=== PATIENT | male | born 1955 | race Caucasian/White ===

== ENCOUNTER 2020-06-15 06:50 | Outpatient (REF) | payer MEDICARE, MEDICAID, SELFPAY | END 2020-06-15 06:51 | disposition home or self-care (01) | LOC: HO.LAB 06:50 | PROVIDERS: Visit Provider Internal Medicine | DX: Z20.828 Contact with and (suspected) exposure to other viral communicable diseases (principal) | CPT/HCPCS: C9803; U0003 ==

== ENCOUNTER 2020-07-06 09:10 | Outpatient (REF) | payer MEDICARE, MEDICAID, SELFPAY | END 2020-07-06 09:11 | disposition home or self-care (01) | LOC: HO.LAB 09:10 | PROVIDERS: Visit Provider Internal Medicine | DX: Z20.828 Contact with and (suspected) exposure to other viral communicable diseases (principal) | CPT/HCPCS: C9803; U0003 ==

== ENCOUNTER → 2021-08-22 12:58 | Outpatient (BNVA) | payer MEDICARE, MEDICAID, SELFPAY | PROVIDERS: PCP Internal Medicine; Referring Provider Internal Medicine; Visit Provider Internal Medicine Gastroenterology | DX: D64.9 Anemia, unspecified (principal); I25.10 Atherosclerotic heart disease of native coronary artery without angina pectoris | CPT/HCPCS: 99212 ==

== ENCOUNTER 2021-09-05 14:17 | Outpatient (REF) | payer MEDICARE, MEDICAID, SELFPAY ==
[2021-09-05 14:43] LABS: MANUAL DIFF FLAG NO
[2021-09-05 15:08] LABS: Basophils Percent Auto 0.4 % (0-2); Eosinophils Absolute Auto 0.1 X10*3/uL (0.0-0.4); Eosinophils Percent Auto 0.9 % (0-4); Hematocrit 36.9 % (42.0-52.0); Hemoglobin 11.7 g/dl (14.0-18.0); Imm Gran Abs Auto 0.03 X10*3/uL (0.00-0.03); Imm Gran Pct Auto 0.3 % (0.0-0.4); Lymphocytes Absolute Auto 1.9 X10*3/uL (1.2-4.9); Lymphocytes Percent Auto 18.3 % (20-40); Mean Corpuscular HGB Conc 31.7 g/dl (31.0-36.0); Mean Corpuscular Hemoglobin 26.5 pg (27.0-33.0); Mean Corpuscular Volume 83.5 fL (80.0-98.0); Mean Platelet Volume 9.6 fL (9.4-12.4); Monocytes Absolute Auto 0.7 X10*3/uL (0.1-1.2); Monocytes Percent Auto 6.8 % (2-11); Neutrophils Absolute Auto 7.6 x10*3/uL (2.0-8.3); Neutrophils Percent Auto 73.3 % (45-73); Platelet Count 293 X10*3/uL (160-400); Red Blood Count 4.42 X10*6/uL (4.60-5.80); Red Cell Distribution Width 13.9 % (11.0-16.0); White Blood Count 10.4 X10*3/uL (4.8-10.8)
[2021-09-05 15:31] LABS: Alanine Aminotransferase 13 U/L (0-40); Albumin Level 4.3 g/dL (3.5-5.0); Alkaline Phosphatase 99 U/L (39-117); Anion Gap 13 (12-20); Aspartate Amino Transferase 18 U/L (5-37); Bilirubin Total 0.5 mg/dL (0.0-1.0); Blood Urea Nitrogen 12 mg/dL (9-16); Calcium 9.4 mg/dL (8.4-10.2); Carbon Dioxide 27 mmol/L (22-29); Chloride 104 mmol/L (96-108); Cholesterol 121 mg/dL; Estimated Glomerular Filt Rate > 60; Glucose Fasting 102 mg/dL (60-99); HDL Cholesterol 40 mg/dL; Iron 30 mcg/dL (45-160); LDL Cholesterol Calculated 53 mg/dl; Percent Iron Saturation 7 % (15-50); Potassium 4.6 mmol/L (3.3-5.1); Sodium 139 mmol/L (135-145); Total Iron Binding Capacity 439 mcg/dL (228-428); Total Protein 7.4 g/dL (6.5-8.0); Triglycerides 143 mg/dL; Unsaturated Iron Binding 409 ug/dL
[2021-09-05 15:51] LABS: Prostate Specific Antigen Scr 0.29 ng/mL (<0.05-4.0)
== END 2021-09-05 14:18 | disposition home or self-care (01) ==
LOC: HO.LAB 14:17
PROVIDERS: PCP Internal Medicine; Visit Provider Internal Medicine
DX: Z00.00 Encounter for general adult medical examination without abnormal findings (principal); Z12.5 Encounter for screening for malignant neoplasm of prostate; E61.1 Iron deficiency; E11.9 Type 2 diabetes mellitus without complications
CPT/HCPCS: 36415; 80053; 80061; 83540; 84153; 85025

== ENCOUNTER 2022-08-30 21:14 | Emergency (ER) | payer OTHER, MEDICAID, SELFPAY ==
--- NOTE | ~2022-08-30 | CT_ITS ---
EXAMINATION: CT ABDOMEN AND PELVIS WITHOUT CONTRAST CLINICAL INFORMATION: Left flank pain. COMPARISON: No similar priors. TECHNIQUE: Multidetector volumetric imaging was performed from the superior aspect of the liver through the pubic symphysis. Sagittal and coronal reformatted images were obtained on the technologist's workstation. This CT examination was performed using dose optimization techniques as appropriate, variously including the following: *Automated exposure control *Adjustment of mA and/or kV according to patient size (this includes techniques or standardized protocols for targeted exams where dose is matched to indication/reason for exam; i.e. extremities or head) *Use of iterative reconstruction technique DLP: 1262 mGy-cm FINDINGS: LUNG BASES: Evaluation of pulmonary nodules is limited due to respiratory motion. Bronchial wall thickening and mosaic attenuation of lung parenchyma. Peripheral reticulation. Partially imaged coronary artery calcifications. LIVER, GALLBLADDER, AND BILIARY TREE: The liver is normal in size, shape, and attenuation. No focal hepatic lesion or biliary ductal dilatation is present. The gallbladder is unremarkable with no evidence of radiopaque gallstones, gallbladder wall thickening, or obvious pericholecystic inflammatory changes. PANCREAS: Unremarkable. SPLEEN: Splenomegaly measuring 14.7 cm craniocaudally. Calcified granulomata. ADRENAL GLANDS: Unremarkable. KIDNEYS AND URETERS: No hydronephrosis or nephrolithiasis. No significant perinephric fat stranding. BLADDER: Unremarkable. GASTROINTESTINAL TRACT: Small hiatal hernia. The stomach and the small bowel are nondilated. Short appendix (7:50) with no inflammatory changes to suspect acute appendicitis. No pericolonic inflammatory changes. No evidence of bowel obstruction. Moderate colonic stool burden. ABDOMINAL WALL: No significant hernia is appreciated. LYMPH NODES: No pathologically enlarged lymph nodes by CT short axis size criteria. VASCULAR: Normal diameter of the abdominal aorta. Scattered atherosclerotic disease. PELVIC VISCERA: Mild prostatomegaly. OSSEOUS STRUCTURES: Nonaggressive appearing sclerotic lesion in the left femoral head, favored to represent a bone island. Degenerative changes of the spine. CT/CT abdomen pelvis wo IV con IMPRESSION: 1. No hydronephrosis or nephrolithiasis. 2. Splenomegaly with multiple calcified splenic granuloma. 3. Small hiatal hernia. 4. Moderate colonic stool burden suggesting constipation. 5. Bronchial wall thickening and mosaic attenuation of the lung parenchyma suggesting small airways disease. 6. Background of nonspecific peripheral lung parenchymal reticulation. If clinically deemed appropriate, correlation with a high resolution elective chest CT could be obtained.
[2022-08-30 21:24] VITALS: BP 112/58; BP 114/45; PULSE 60; PULSE 76; RESP 18; TEMP 36.7; O2SAT 96; O2SAT 97; BMI 33.6
[2022-08-30 21:33] VITALS: BP 114/45; PULSE 60; RESP 18; TEMP 36.7; O2SAT 95
[2022-08-30] MEDS: 0.9 % Sodium Chloride 1,000 ML 999 ML IV (21:48)
[2022-08-30 21:49] LABS: MANUAL DIFF FLAG NO
[2022-08-30 21:51] LABS: Basophils Percent Auto 0.5 % (0-2); Eosinophils Absolute Auto 0.1 X10*3/uL (0.0-0.4); Eosinophils Percent Auto 1.4 % (0-4); Hematocrit 34.9 % (42.0-52.0); Hemoglobin 11.3 g/dl (14.0-18.0); Imm Gran Abs Auto 0.02 X10*3/uL (0.00-0.03); Imm Gran Pct Auto 0.3 % (0.0-0.4); Lymphocytes Absolute Auto 2.5 X10*3/uL (1.2-4.9); Mean Corpuscular HGB Conc 32.4 g/dl (31.0-36.0); Mean Corpuscular Hemoglobin 26.8 pg (27.0-33.0); Mean Corpuscular Volume 82.9 fL (80.0-98.0); Mean Platelet Volume 9.4 fL (9.4-12.4); Monocytes Absolute Auto 0.7 X10*3/uL (0.1-1.2); Monocytes Percent Auto 8.9 % (2-11); Neutrophils Absolute Auto 4.4 x10*3/uL (2.0-8.3); Neutrophils Percent Auto 56.9 % (45-73); Platelet Count 293 X10*3/uL (160-400); Red Blood Count 4.21 X10*6/uL (4.60-5.80); Red Cell Distribution Width 13.8 % (11.0-16.0); White Blood Count 7.8 X10*3/uL (4.8-10.8)
--- NOTE | 2022-08-30 21:58 | PC.NURSE ---
Patient BIBA from home. Kerwintent is alert and oriented x3, VSS. Patient reports new onset of left flank pain. Per patient pain is constant, achy, sharp 10/10. Patient denies recent injuries, no vomiting, no nausea at this time. Patient denies discomfort with urinations. 20 G IV line established in R AC. Labs drawn per MD orders and sent to the lab for processing. 1 L NS bolus started and infusing w/o issues noted. Patient positioned on right side for comfort, call placed valle within patient's reach.
[2022-08-30 22:09] LABS: Alanine Aminotransferase 10 U/L (0-40); Albumin Level 3.9 g/dL (3.5-5.0); Alkaline Phosphatase 94 U/L (39-117); Anion Gap 11 (12-20); Aspartate Amino Transferase 14 U/L (5-37); Bilirubin Total 0.3 mg/dL (0.0-1.0); Blood Urea Nitrogen 14 mg/dL (9-16); COVID-19 Test Negative (Negative); Carbon Dioxide 25 mmol/L (22-29); Chloride 104 mmol/L (96-108); Creatinine Clr Calc Pharmacy 104.7; Estimated Glomerular Filt Rate > 60; Glucose Random 94 mg/dL (60-115); IDNOW Serial# 6674DD1D; Lipase 17 U/L (8-78); Sodium 136 mmol/L (135-145); Total Protein 6.6 g/dL (6.5-8.0)
--- NOTE | 2022-08-30 22:29 | ED_ITS ---
HPI - General Adult General Chief complaint: General Medical Stated complaint: flank pain Time Seen by Provider: 08/30/22 21:27 Source: patient Mode of arrival: ambulatory Limitations: no limitations History of Present Illness HPI narrative: This is a 66-year-old male history of coronary artery disease, depression, GERD, anemia, hyperlipidemia presenting to the emergency department with 2-3 hours of left-sided flank pain that is atraumatic in nature. Patient tells me that the pain is intermittent, stabbing in nature, very uncomfortable, it is also worse with palpation. Patient tells me this is never happened to him before. He denies chest pain, shortness of breath, fevers, chills, nausea, vomiting, urina ry symptoms, changes in bowel habits. Related Data Home Medications Medication Instructions Recorded Confirmed aspirin 81 mg tablet,delayed 81 mg PO DAILY 07/26/20 07/03/22 release clopidogrel 75 mg tablet 75 mg PO DAILY 07/26/20 07/03/22 isosorbide mononitrate 60 mg 60 mg PO DAILY 07/26/20 07/03/22 tablet,extended release 24 hr nitroglycerin 0.4 mg sublingual 0.4 mg sublingual angina 07/26/20 07/03/22 tablet rosuvastatin 40 mg tablet 40 mg PO DAILY 07/26/20 07/03/22 sertraline 100 mg tablet mg PO 07/26/20 07/03/22 Previous Rx's Medication Instructions Recorded pantoprazole 40 mg tablet,delayed 40 mg PO DAILY #90 tabs 05/25/21 release bisacodyl 5 mg tablet,delayed 10 mg PO BEDTIME Colon prep 2 days 08/22/21 release (Dulcolax (bisacodyl)) #4 tabs polyethylene glycol 3350 17 17 g PO DAILY 1 day #238 grams 08/22/21 gram/dose oral powder (Miralax) sod picosulf 10 mg-magnes 3.5 160 ml PO DAILY 2 doses #320 mL 09/06/21 gram-citric 12 gram/160 mL oral solution (Clenpiq) cyanocobalamin (vitamin B-12) 1,000 mcg PO DAILY #90 tabs 01/25/22 1,000 mcg tablet loperamide 2 mg capsule 2 mg PO QID PRN for diarrhea #112 07/27/22 caps blood pressure monitor (Blood #1 ea 08/18/22 Pressure Kit) pulse oximeter #1 ea 08/18/22 thermometer #1 ea 08/18/22 Allergies Allergy/AdvReac Type Severity Reaction Status Date / Time influenza virus vaccine, Allergy Unknown NAUSEA & Verified 07/03/22 14:01 specific VOMITING [FLU VACCINE] pneumococcal vaccine Allergy Unknown NAUSEA & Verified 07/03/22 14:01 [PNEUMOCOCCAL VACCINE] VOMITING Review of Systems Review of Systems: Constitutional : No Weight loss, No Fever, No Chills, No Fatigue, No Malaise ENT/Mouth : No sore throat, No Rhinorrhea Eyes: No Eye Pain, No Swelling, No Redness Cardiovascular : No Chest Pain, No SOB, No Dyspnea on Exertion, No Orthopnea, No Edema, No Palpitations Respiratory : No Cough, No Sputum, No Wheezing Gastrointestinal : No Nausea, No Vomiting, No Diarrhea, No Constipation, No abdominal Pain, No Hematochezia, No Melena Genitourinary : No Dysuria, No Urinary Frequency, No Hematuria, Musculoskeletal : No joint pain, No Myalgias, No Joint Swelling, + left flank pain Skin : No Skin Lesions, No rash Neuro : No Weakness, No Numbness, No Dizziness, No Headache Psych : No Anxiety/Panic, No Depression All other systems reviewed and are negative Yes all other systems are reviewed and are negative [facility] Past Medical History Attestation statement: The following information was validated with the patient. Source: old records reviewed and nursing notes reviewed Medical History Hyperlipidemia Obesity Surgical History History of coronary artery stent placement Family History Family History Father COPD (chronic obstructive pulmonary disease) Lung cancer Mother Myocardial infarction Family/Other Diabetes Thyroid disease Social History Social History Housing: Apartment Alcohol intake: former Patient Tobacco Use Status: Former Tobacco user Tobacco use type: Cigarette Smoked in Last 30 Days: Yes e-Cigarette/Vaping Use: Never Used Second Hand Smoke Exposure: No Use of substances other than those prescribed or required for medical reasons: No Advance Directives: No Advance Directives Information Provided: Yes service: No Current occupational status: disabled Cognitive needs: No Hearing needs: No Vision needs: No Physical Exam ED Vital Signs: Vital Signs - 24 hr 08/30/22 21:24 08/30/22 21:33 Temperature 98.1 F 98.1 F Pulse Rate 60 60 Respiratory Rate 18 18 Blood Pressure 114/45 L 114/45 L Pulse Oximetry 96 95 Oxygen Delivery Method Room Air Room Air BMI result Body Mass Index 33.6 vss Appearance: Alert.? Oriented X3.? No acute distress.? Head: Normocephalic, atraumatic, no step-offs or deformities Eyes: Pupils equal, round and reactive to light.? ENT: Pharynx normal.? Neck: Normal inspection.? Neck supple.? CVS: Normal heart rate and rhythm.? Pulses normal.? Respiratory: No respiratory distress.? Breath sounds normal.? Abdomen: Soft and nontender.? Skin: Skin warm and dry.? Normal skin color.? Normal skin turgor.? Extremities: No lower extremity edema.? No calf ttp. 5/5 strength to bilateral upper and lower extremities Back: No midline tenderness, no C-spine tenderness, full range of motion, no CVA tenderness bilaterally + pain w/ palpation to left flank Neuro: Oriented X 3.? No motor deficit.? No sensory deficit. CN 2-12 intact . No saddle paresthesias. Ambulating with steady gait normal coordination. Course Reevaluation(s) Reevaluation #1: CBC appears to be around patient's baseline with normocytic anemia. No elevated white blood cell count to indicate infection. Chemistry with no acute findings requiring intervention. Normal lipase. Patient COVID negative. CT of the abdomen pelvis with no hydronephrosis or nephrolithiasis. Splenomegaly with multiple calcified splenic granulomas. Small hiatal hernia. Moderate colonic stool burden suggesting constipation. Bronchial wall thickening and a mosaic at tenuation of the lung parenchymal suggesting small airway disease however patient without upper respiratory symptoms. Upon re-evaluation patient tells me he is feeling much better pain is resolved. Patient ambulating without difficulty. Appears well. Likely musculoskeletal in origin. To note patient has been denying all red flag symptoms pertaining to back pain such as urinary/bowel incontinence/retention, saddle paresthesias, weakness. Educated patient on diagnosis and treatment plan, answered all question, patient verbalizes understanding. At this time patient will be discharged home, advised to return with new or worsening symptoms. Educated on worrisome signs and symptoms and when to return. At this time I feel comfortable discharge home. Time: 01:07 Medications Administered Discontinued Medications Generic Name Dose Route Start Last Admin Trade Name Brinda PRN Reason Stop Dose Admin Sodium Chloride 1,000 mls @ 999 mls/hr 08/30/22 21:30 08/30/22 21:48 Ns IV 08/30/22 22:30 999 mls/hr .Q1H1M MARCY Administration Lidocaine 1 patch 08/30/22 23:43 08/31/22 00:19 Lidocaine 4 % Patch Adh..Patch TRANSDERMA 08/30/22 23:44 1 patch ONCE ONE Administration Protocol Morphine Sulfate 4 mg 08/30/22 23:43 08/31/22 00:18 Morphine Sulfate 4 Mg/Ml Cartridge IVPUSH 08/30/22 23:44 4 mg ONCE ONE Administration Protocol Medical Decision Making Medical Decision Making [facility] Narrative: 0 66-year-old male presents with atraumatic left flank pain, intermittent, severe in stabbing in nature. Physical examination with significant discomfort with palpation overlying the left flank. Likely musculoskeletal in nature, unlikely that this is obstructing stone, pyelonephritis. Will rule out infection and electrolyte abnormalities. Unlikley AAA , cauda equina or epidural abscess Plan labs, urine, scans Differential Diagnosis Differential Diagnoses: The differential diagnosis associated with the presentation includes Likely musculoskeletal in nature, unlikely that this is obstructing stone, pyelonephritis. Will rule out infection and electrolyte abnormalities. Unlikley AAA , cauda equina or epidural abscess Admission/Observation Consideration of admission/observation: Escalation of care including adm ission/observation considered Lab Data [facility] Lab Attestation statement: I reviewed the patient's lab results. 08/30/22 21:45 08/30/22 21:45 Labs: Lab Results 08/30/22 08/30/22 08/30/22 Range/Units 21:45 21:45 21:45 WBC 7.8 (4.8-10.8) X10*3/uL RBC 4.21 L (4.60-5.80) X10*6/uL Hgb 11.3 L (14.0-18.0) g/dl Hct 34.9 L (42.0-52.0) % MCV 82.9 (80.0-98.0) fL MCH 26.8 L (27.0-33.0) pg MCHC 32.4 (31.0-36.0) g/dl RDW 13.8 (11.0-16.0) % Plt Count 293 (160-400) X10*3/uL MPV 9.4 (9.4-12.4) fL Immature Gran % (Auto) 0.3 (0.0-0.4) % Neut % (Auto) 56.9 (45-73) % Lymph % (Auto) 32.0 (20-40) % Carson % (Auto) 8.9 (2-11) % Eos % (Auto) 1.4 (0-4) % Baso % (Auto) 0.5 (0-2) % Lymph # (Auto) 2.5 (1.2-4.9) X10*3/uL Carson # (Auto) 0.7 (0.1-1.2) X10*3/uL Eos # (Auto) 0.1 (0.0-0.4) X10*3/uL Baso # (Auto) 0.0 (0.0-0.2) X10*3/uL Abs Immat Gran (auto) 0.02 (0.00-0.03) X10*3/uL Absolute Neuts (auto) 4.4 (2.0-8.3) x10*3/uL Absolute Nucleated RBC 0.000 (0.0-0.012) X10*3/uL Nucleated RBC % (auto) 0.0 (0.0-0.2) /100WBC Sodium 136 (135-145) mmol/L Potassium 4.0 (3.3-5.1) mmol/L Chloride 104 (96-108) mmol/L Carbon Dioxide 25 (22-29) mmol/L Anion Gap 11 L (12-20) BUN 14 (9-16) mg/dL Creatinine 0.95 (0.5-1.4) mg/dL Estim Creat Clear Calc 104.7 Estimated GFR > 60 Random Glucose 94 (60-115) mg/dL Calcium 9.0 (8.4-10.2) mg/dL Magnesium 2.0 (1.6-2.6) mg/dL Total Bilirubin 0.3 (0.0-1.0) mg/dL AST 14 (5-37) U/L ALT 10 (0-40) U/L Alkaline Phosphatase 94 (39-117) U/L Total Protein 6.6 (6.5-8.0) g/dL Albumin 3.9 (3.5-5.0) g/dL Lipase 17 (8-78) U/L COVID-19 (ELAYNE) Negative (Negative) COVID-19 Clin Com See Note Independent Interpretation I performed an independent interpretation of an: CT Scan (CT/CT abdomen pelvis wo IV con IMPRESSION: 1. No hydronephrosis or nephrolithiasis. 2. Splenomegaly with multiple calcified splenic granuloma. 3. Small hiatal hernia. 4. Moderate colonic stool burden suggesting constipation. 5. Bronchial wall thickening and mosaic attenuation of the lung parenc) Radiology Impression Discussion of test interpretation with radiology: I have reviewed the radiologist's reading. External Record Review External record reviewed: Inpatient record, Office record, Outpatient record, Prior outpatient labs, Prior outpatient radiology, Primary care record and Outside ED record Core Measures AMI core measures followed: Yes Measure exclusions: not indicated Critical Care Time Critical Care Time Critical Care Time: No Discharge Plan Discharge Clinical Impression: Left flank pain Patient Disposition: Home, Self-Care Instructions: Flank Pain (ED) Additional Instructions: Take your medications as prescribed. If you were prescribed antibiotics today, it is important that you take your medication to their entirety, do not skip any doses, do not finish them early. Follow-up with your primary care provider this week. Return to the emergency department with new or worsening symptoms. Such as fevers, chills, chest pain, shortness of breath, nausea, vomiting, dizziness, headache, vision changes, lethargy In case of emergency call 911 You can take ibuprofen every 6 hours, Tylenol every 4 hours as needed for pain or discomfort. Do not exceed maximum daily dose listed on package in do not take if you are allergic to either of these. Prescriptions: No Action pantoprazole 40 mg tablet,delayed release (DR/EC) 40 mg PO DAILY Qty: 90 8RF Clenpiq 10 mg-3.5 gram -12 gram/160 mL solution 160 ml PO DAILY Qty: 320 0RF Rx Instructions: take first dose at 5-9PM evening before colonoscopy; 2nd dose the next day approximately 5 hrs before colonoscopy cyanocobalamin (vitamin B-12) 1,000 mcg tablet 1,000 mcg PO DAILY Qty: 90 8RF loperamide 2 mg capsule 2 mg PO QID PRN (Reason: for diarrhea) Qty: 112 3RF (DME) blood pressure monitor [Blood Pressure Kit] Kit See Rx Instructions .Route Qty: 1 0RF Rx Instructions: As directed (DME) pulse oximeter See Rx Instructions .Route .MEDSUPPLY Qty: 1 0RF Rx Instructions: As directed (DME) thermometer See Rx Instructions .Route .MEDSUPPLY Qty: 1 0RF Rx Instructions: As directed rosuvastatin 40 mg tablet 40 mg PO DAILY isosorbide mononitrate 60 mg tablet extended release 24 hr 60 mg PO DAILY clopidogrel 75 mg tablet 75 mg PO DAILY sertraline 100 mg tablet PO aspirin 81 mg tablet,delayed release (DR/EC) 81 mg PO DAILY nitroglycerin 0.4 mg tablet, sublingual 0.4 mg sublingual polyethylene glycol 3350 [Miralax] 17 gram/dose powder 17 g PO DAILY 1 Days Qty: 238 0RF Rx Instructions: Mix Miralax with 64 oz(8 cups) of Crystal light. Take 2 tablets of Dulcolax qt 12 pm. Wait to have your 1st bowel movement, then begin drinking Miralax. Drink a glass of Miralax every 10-15 minutes until you are finished. You will drink at least another 4 cups of clear liquid of your choice over the next 2 hours. Please drink as many clear liquids as possible You may have clear liquids up to four hours before your procedure bisacodyl [Dulcolax (bisacodyl)] 5 mg tablet,delayed release (DR/EC) 10 mg PO BEDTIME 2 Days Qty: 4 0RF Rx Instructions: Take 2 tablets at noon 2 days before colonoscopy. Take 2 tablets at noon 1 day before colonoscopy Referrals: Isac Littlejohn MD [Primary Care Provider] - 2 days
[2022-08-31] MEDS: Morphine Sulfate 4 MG/ML CARTRIDGE IVPUSH (00:18)
[2022-08-31] MEDS: Lidocaine 4 % Patch ADH..PATCH 1 PATCH TRANSDERMA (00:19)
[2022-08-31 01:19] VITALS: BP 117/62; PULSE 56; RESP 18; TEMP 36.8; O2SAT 96
== END 2022-08-31 01:52 | disposition home or self-care (01) ==
PROVIDERS: Physician Assistant; Emergency Provider Emergency Medicine; PCP Internal Medicine
DX: R10.9 Unspecified abdominal pain (principal); Z20.822 Contact with and (suspected) exposure to COVID-19; Z20.828 Contact with and (suspected) exposure to other viral communicable diseases; Z87.891 Personal history of nicotine dependence; Z79.899 Other long term (current) drug therapy
CPT/HCPCS: 36415; 74176; 80053; 83690; 83735; 85025; 87635; 96374; 99284; J2270

== ENCOUNTER 2022-10-22 21:36 | Emergency (ER) | payer OTHER, MEDICAID, SELFPAY ==
--- NOTE | 2022-10-22 | ECG_ITS ---
Test Reason : ABD PAIN Blood Pressure : / mmHG Vent. Rate : 057 BPM Atrial Rate : 057 BPM P-R Int : 178 ms QRS Dur : 100 ms QT Int : 416 ms P-R-T Axes : 039 -17 059 degrees QTc Int : 404 ms Sinus bradycardia Minimal voltage criteria for LVH, may be normal variant ( R in aVL ) Borderline ECG When compared with ECG of 06-NOV-2017 17:52, ST no longer depressed in Anterior leads Nonspecific T wave abnormality has replaced inverted T waves in Lateral leads Referred By: Generic ED Physician Electronically Signed By:GLADIS PAN
--- NOTE | ~2022-10-22 | CT_ITS ---
EXAMINATION: CT ABDOMEN AND PELVIS WITH CONTRAST CLINICAL INFORMATION: Left-sided abdominal pain COMPARISON: 08/30/2022 TECHNIQUE: Multidetector volumetric images were obtained from the superior aspect of the liver through the pubic symphysis following administration 80 mL of Omnipaque 350 intravenous contrast. Sagittal and coronal reformatted images were obtained on the technologist's workstation. Oral contrast: No This CT examination was performed using dose optimization techniques as appropriate, variously including the following: *Automated exposure control *Adjustment of mA and/or kV according to patient size (this includes techniques or standardized protocols for targeted exams where dose is matched to indication/reason for exam; i.e. extremities or head) *Use of iterative reconstruction technique DLP: 962 mGy-cm FINDINGS: LUNG BASES: Basilar atelectasis/scarring. Changes of mild chronic lung disease. LIVER, GALLBLADDER, AND BILIARY TREE: The liver is normal in size, shape, and attenuation. No focal hepatic lesion or biliary ductal dilatation is present. The gallbladder is unremarkable with no evidence of radiopaque gallstones, gallbladder wall thickening, or obvious pericholecystic inflammatory changes. PANCREAS: Unremarkable. SPLEEN: Normal size spleen with calcified granulomata present. ADRENAL GLANDS: Unremarkable. KIDNEYS AND URETERS: The kidneys are normal in size, shape, and attenuation. No hydronephrosis, hydroureter, or calculi seen. No perinephric stranding. BLADDER: Unremarkable. GASTROINTESTINAL TRACT: The stomach is unremarkable. Normal caliber small bowel. No obstruction. No colonic wall thickening or inflammation. No free air or free fluid. ABDOMINAL WALL: No significant hernia is appreciated. LYMPH NODES: Normal. VASCULAR: Normal caliber aorta. Mild atherosclerotic calcification. PELVIC VISCERA: The prostate and seminal vesicles are unremarkable. OSSEOUS STRUCTURES: No acute or suspicious osseous abnormality. Degenerative changes of the lumbar spine. Partial fusion along the sacroiliac joints. CT/CT abdomen pelvis w IV con IMPRESSION: No acute findings of the abdomen or pelvis. No inflammatory changes. Fleischner guidelines were followed.
[2022-10-22 21:46] VITALS: BP 146/96; PULSE 84; O2SAT 98
[2022-10-22 21:52] VITALS: BP 117/58; PULSE 61; RESP 18; TEMP 36.4; O2SAT 95; BMI 33.5
--- NOTE | 2022-10-22 22:18 | MHC.EDTECH ---
PT EKG TAKEN AND WAS READ BY PROVIDER ,BLOOD DRAWN AND COVID SWAB COLLECTED AND SENT TO LAB .
[2022-10-22 22:21] LABS: MANUAL DIFF FLAG NO
[2022-10-22 22:23] LABS: Basophils Absolute Auto 0.1 X10*3/uL (0.0-0.2); Eosinophils Absolute Auto 0.1 X10*3/uL (0.0-0.4); Eosinophils Percent Auto 1.8 % (0-4); Hematocrit 37.2 % (42.0-52.0); Hemoglobin 11.8 g/dl (14.0-18.0); Imm Gran Abs Auto 0.01 X10*3/uL (0.00-0.03); Imm Gran Pct Auto 0.1 % (0.0-0.4); Lymphocytes Absolute Auto 2.3 X10*3/uL (1.2-4.9); Lymphocytes Percent Auto 30.7 % (20-40); Mean Corpuscular HGB Conc 31.7 g/dl (31.0-36.0); Mean Corpuscular Hemoglobin 26.5 pg (27.0-33.0); Mean Corpuscular Volume 83.6 fL (80.0-98.0); Mean Platelet Volume 9.3 fL (9.4-12.4); Monocytes Absolute Auto 0.8 X10*3/uL (0.1-1.2); Monocytes Percent Auto 10.5 % (2-11); Neutrophils Absolute Auto 4.1 x10*3/uL (2.0-8.3); Neutrophils Percent Auto 55.9 % (45-73); Platelet Count 302 X10*3/uL (160-400); Red Blood Count 4.45 X10*6/uL (4.60-5.80); Red Cell Distribution Width 13.7 % (11.0-16.0); White Blood Count 7.3 X10*3/uL (4.8-10.8)
[2022-10-22 22:36] LABS: COVID-19 Test Negative (Negative); IDNOW Serial# 6674DD1D
[2022-10-22 22:38] LABS: Alanine Aminotransferase 13 U/L (0-40); Albumin Level 4.1 g/dL (3.5-5.0); Alkaline Phosphatase 94 U/L (39-117); Anion Gap 14 (12-20); Aspartate Amino Transferase 16 U/L (5-37); Bilirubin Total 0.4 mg/dL (0.0-1.0); Blood Urea Nitrogen 13 mg/dL (9-16); Calcium 8.7 mg/dL (8.4-10.2); Carbon Dioxide 25 mmol/L (22-29); Chloride 104 mmol/L (96-108); Creatinine Clr Calc Pharmacy 110.1; Estimated Glomerular Filt Rate > 60; Glucose Random 92 mg/dL (60-115); Potassium 4.4 mmol/L (3.3-5.1); Sodium 139 mmol/L (135-145); Total Protein 6.9 g/dL (6.5-8.0)
[2022-10-22 22:54] LABS: Troponin-I High Sensitivity < 3.5 ng/L (<3.5-35.0)
--- NOTE | 2022-10-22 23:51 | ED_ITS ---
HPI - General Adult General Chief complaint: General Medical Stated complaint: Abd Pain Time Seen by Provider: 10/22/22 23:27 History of Present Illness HPI narrative: Patient is a 67-year-old male present today with having left-sided abdominal pain. The pain is sharp. Nonspecific. Ongoing for the last 4-5 hours. Patient had something similar approximally [address] scan at that time did not show any acute findings. No change of bowel movement. No nausea no vomiting. The pain is sharp. No fever no chills. Patient did had a previous abdominal surgery he is not sure what it was. This done at [facility]. Related Data Home Medications Medication Instructions Recorded Confirmed aspirin 81 mg tablet,delayed 81 mg PO DAILY 07/26/20 10/04/22 release clopidogrel 75 mg tablet 75 mg PO DAILY 07/26/20 10/04/22 isosorbide mononitrate 60 mg 60 mg PO DAILY 07/26/20 10/04/22 tablet,extended release 24 hr nitroglycerin 0.4 mg sublingual 0.4 mg sublingual angina 07/26/20 10/04/22 tablet rosuvastatin 40 mg tablet 40 mg PO DAILY 07/26/20 10/04/22 sertraline 100 mg tablet mg PO 07/26/20 10/04/22 Previous Rx's Medication Instructions Recorded pantoprazole 40 mg tablet,delayed 40 mg PO DAILY #90 tabs 05/25/21 release bisacodyl 5 mg tablet,delayed 10 mg PO BEDTIME Colon prep 2 days 08/22/21 release (Dulcolax (bisacodyl)) #4 tabs polyethylene glycol 3350 17 17 g PO DAILY 1 day #238 grams 08/22/21 gram/dose oral powder (Miralax) sod picosulf 10 mg-magnes 3.5 160 ml PO DAILY 2 doses #320 mL 09/06/21 gram-citric 12 gram/160 mL oral solution (Clenpiq) cyanocobalamin (vitamin B-12) 1,000 mcg PO DAILY #90 tabs 01/25/22 1,000 mcg tablet loperamide 2 mg capsule 2 mg PO QID PRN for diarrhea #112 07/27/22 caps blood pressure monitor (Blood #1 ea 08/18/22 Pressure Kit) pulse oximeter #1 ea 08/18/22 thermometer #1 ea 08/18/22 Allergies Allergy/AdvReac Type Severity Reaction Status Date / Time influenza virus vaccine, Allergy Unknown NAUSEA & Verified 10/22/22 21:52 specific VOMITING [FLU VACCINE] pneumococcal vaccine Allergy Unknown NAUSEA & Verified 10/22/22 21:52 [PNEUMOCOCCAL VACCINE] VOMITING Review of Systems Review of Systems: Positive abdominal pain on the left side Yes all other systems are reviewed and are negative [facility] Past Medical History Attestation statement: The following information was validated with the patient. Medical History Hyperlipidemia Obesity Surgical History History of coronary artery stent placement Family History Family History Father COPD (chronic obstructive pulmonary disease) Lung cancer Mother Myocardial infarction Family/Other Diabetes Thyroid disease Social History Social History Housing: Apartment Alcohol intake: former Patient Tobacco Use Status: Former Tobacco user Tobacco use type: Cigarette e-Cigarette/Vaping Use: Never Used Second Hand Smoke Exposure: No Advance Directives: No Advance Directives Information Provided: No service: No Current occupational status: disabled Cognitive needs: No Hearing needs: No Vision needs: No Physical Exam ED Vital Signs: Vital Signs - 24 hr 10/22/22 21:52 10/23/22 00:37 Temperature 97.5 F 97.7 F Pulse Rate 61 54 Respiratory Rate 18 18 Blood Pressure 117/58 L 120/54 L Pulse Oximetry 95 97 Oxygen Delivery Method Room Air Room Air BMI result Body Mass Index 33.5 Appearance: Alert. Oriented X3. No acute distress. Eyes: Pupils equal, round and reactive to light. ENT: Pharynx normal. Neck: Normal inspection. Neck supple. No lymph nodes noted. No crepitus CVS: Normal heart rate and rhythm. Pulses normal. Normal S1 and S2 Respiratory: No respiratory distress. Breath sounds normal. No Wheezing. No rales Abdomen: Soft and nontender. No rigidity. No distention. good BS x4 Skin: Skin warm and dry. Normal skin color. Normal skin turgor. Extremities: No lower extremity edema. Neurovascular intact to all extremities. No Lacerations. No Rash Neuro: Oriented X 3. No motor deficit. No sensory deficit. Moving all extermities. No slurred speech Medications Administered Discontinued Medications Generic Name Dose Route Start Last Admin Trade Name Brinda PRN Reason Stop Dose Admin Iohexol 100 ml 10/23/22 00:22 10/23/22 00:22 Iohexol 350 Mg/Ml 100 Ml Infus..Btl IV 10/23/22 00:23 100 ml ONCE ONE Administration Medical Decision Making Medical Decision Making [facility] Narrative: Well-appearing no acute distress positive left-sided abdominal pain. History of similar pain in the past. CT scan today with IV contrast showed no acute finding. No evidence for diverticulitis no evidence for kidney stone no evidence for obstruction abscess perforation. Differential Diagnosis Diverticulitis, kidney stone, obstruction, abscess, perforation Lab Data [facility] Lab Attestation statement: I reviewed the patient's lab results. 10/22/22 22:16 10/22/22 22:16 Labs: Lab Results 10/22/22 10/22/22 10/22/22 Range/Units 22:16 22:16 22:16 WBC 7.3 (4.8-10.8) X10*3/uL RBC 4.45 L (4.60-5.80) X10*6/uL Hgb 11.8 L (14.0-18.0) g/dl Hct 37.2 L (42.0-52.0) % MCV 83.6 (80.0-98.0) fL MCH 26.5 L (27.0-33.0) pg MCHC 31.7 (31.0-36.0) g/dl RDW 13.7 (11.0-16.0) % Plt Count 302 (160-400) X10*3/uL MPV 9.3 L (9.4-12.4) fL Immature Gran % (Auto) 0.1 (0.0-0.4) % Neut % (Auto) 55.9 (45-73) % Lymph % (Auto) 30.7 (20-40) % [place] % (Auto) 10.5 (2-11) % Eos % (Auto) 1.8 (0-4) % Baso % (Auto) 1.0 (0-2) % Lymph # (Auto) 2.3 (1.2-4.9) X10*3/uL [place] # (Auto) 0.8 (0.1-1.2) X10*3/uL Eos # (Auto) 0.1 (0.0-0.4) X10*3/uL Baso # (Auto) 0.1 (0.0-0.2) X10*3/uL Abs Immat Gran (auto) 0.01 (0.00-0.03) X10*3/uL Absolute Neuts (auto) 4.1 (2.0-8.3) x10*3/uL Absolute Nucleated RBC 0.000 (0.0-0.012) X10*3/uL Nucleated RBC % (auto) 0.0 (0.0-0.2) /100WBC Sodium 139 (135-145) mmol/L Potassium 4.4 (3.3-5.1) mmol/L Chloride 104 (96-108) mmol/L Carbon Dioxide 25 (22-29) mmol/L Anion Gap 14 (12-20) BUN 13 (9-16) mg/dL Creatinine 0.89 (0.5-1.4) mg/dL Estim Creat Clear Calc 110.1 Estimated GFR > 60 Random Glucose 92 (60-115) mg/dL Calcium 8.7 (8.4-10.2) mg/dL Total Bilirubin 0.4 (0.0-1.0) mg/dL AST 16 (5-37) U/L ALT 13 (0-40) U/L Alkaline Phosphatase 94 (39-117) U/L Troponin I High Sens < 3.5 (<3.5-35.0) ng/L Total Protein 6.9 (6.5-8.0) g/dL Albumin 4.1 (3.5-5.0) g/dL COVID-19 (ELAYNE) (Negative) COVID-19 Clin Com 10/22/22 Range/Units 22:16 WBC (4.8-10.8) X10*3/uL RBC (4.60-5.80) X10*6/uL Hgb (14.0-18.0) g/dl Hct (42.0-52.0) % MCV (80.0-98.0) fL MCH (27.0-33.0) pg MCHC (31.0-36.0) g/dl RDW (11.0-16.0) % Plt Count (160-400) X10*3/uL MPV (9.4-12.4) fL Immature Gran % (Auto) (0.0-0.4) % Neut % (Auto) (45-73) % Lymph % (Auto) (20-40) % [place] % (Auto) (2-11) % Eos % (Auto) (0-4) % Baso % (Auto) (0-2) % Lymph # (Auto) (1.2-4.9) X10*3/uL [place] # (Auto) (0.1-1.2) X10*3/uL Eos # (Auto) (0.0-0.4) X10*3/uL Baso # (Auto) (0.0-0.2) X10*3/uL Abs Immat Gran (auto) (0.00-0.03) X10*3/uL Absolute Neuts (auto) (2.0-8.3) x10*3/uL Absolute Nucleated RBC (0.0-0.012) X10*3/uL Nucleated RBC % (auto) (0.0-0.2) /100WBC Sodium (135-145) mmol/L Potassium (3.3-5.1) mmol/L Chloride (96-108) mmol/L Carbon Dioxide (22-29) mmol/L Anion Gap (12-20) BUN (9-16) mg/dL Creatinine (0.5-1.4) mg/dL Estim Creat Clear Calc Estimated GFR Random Glucose (60-115) mg/dL Calcium (8.4-10.2) mg/dL Total Bilirubin (0.0-1.0) mg/dL AST (5-37) U/L ALT (0-40) U/L Alkaline Phosphatase (39-117) U/L Troponin I High Sens (<3.5-35.0) ng/L Total Protein (6.5-8.0) g/dL Albumin (3.5-5.0) g/dL COVID-19 (ELAYNE) Negative (Negative) COVID-19 Clin Com See Note External Record Review External record reviewed: Inpatient record Chronic Conditions Coronary artery disease Discharge Plan Discharge Clinical Impression: Abdominal pain Patient Disposition: Home, Self-Care Instructions: Abdominal Pain (ED) Prescriptions: No Action pantoprazole 40 mg tablet,delayed release (DR/EC) 40 mg PO DAILY Qty: 90 8RF Clenpiq 10 mg-3.5 gram -12 gram/160 mL solution 160 ml PO DAILY Qty: 320 0RF Rx Instructions: take first dose at 5-9PM evening before colonoscopy; 2nd dose the next day approximately 5 hrs before colonoscopy cyanocobalamin (vitamin B-12) 1,000 mcg tablet 1,000 mcg PO DAILY Qty: 90 8RF loperamide 2 mg capsule 2 mg PO QID PRN (Reason: for diarrhea) Qty: 112 3RF (DME) blood pressure monitor [Blood Pressure Kit] Kit See Rx Instructions .Route Qty: 1 0RF Rx Instructions: As directed (DME) pulse oximeter See Rx Instructions .Route .MEDSUPPLY Qty: 1 0RF Rx Instructions: As directed (DME) thermometer See Rx Instructions .Route .MEDSUPPLY Qty: 1 0RF Rx Instructions: As directed rosuvastatin 40 mg tablet 40 mg PO DAILY isosorbide mononitrate 60 mg tablet extended release 24 hr 60 mg PO DAILY clopidogrel 75 mg tablet 75 mg PO DAILY sertraline 100 mg tablet PO aspirin 81 mg tablet,delayed release (DR/EC) 81 mg PO DAILY nitroglycerin 0.4 mg tablet, sublingual 0.4 mg sublingual polyethylene glycol 3350 [Miralax] 17 gram/dose powder 17 g PO DAILY 1 Days Qty: 238 0RF Rx Instructions: Mix Miralax with 64 oz(8 cups) of Crystal light. Take 2 tablets of Dulcolax qt 12 pm. Wait to have your 1st bowel movement, then begin drinking Miralax. Drink a glass of Miralax every 10-15 minutes until you are finished. You will drink at least another 4 cups of clear liquid of your choice over the next 2 hours. Please drink as many clear liquids as possible You may have clear liquids up to four hours before your procedure bisacodyl [Dulcolax (bisacodyl)] 5 mg tablet,delayed release (DR/EC) 10 mg PO BEDTIME 2 Days Qty: 4 0RF Rx Instructions: Take 2 tablets at noon 2 days before colonoscopy. Take 2 tablets at noon 1 day before colonoscopy Referrals: Isac Littlejohn MD [Primary Care Provider] -
[2022-10-23] MEDS: iohexoL 350 MG/ML 100 ML INFUS..BTL IV (00:22)
[2022-10-23 00:37] VITALS: BP 120/54; PULSE 54; RESP 18; TEMP 36.5; O2SAT 97
== END 2022-10-23 02:17 | disposition home or self-care (01) ==
PROVIDERS: Emergency Provider Emergency Medicine Emergency Medical Services; PCP Internal Medicine
DX: R10.30 Lower abdominal pain, unspecified (principal); Z87.891 Personal history of nicotine dependence; Z20.822 Contact with and (suspected) exposure to COVID-19; Z20.828 Contact with and (suspected) exposure to other viral communicable diseases; Z79.899 Other long term (current) drug therapy
CPT/HCPCS: 36415; 74177; 80053; 84484; 85025; 87635; 93005; 99283; Q9967

== ENCOUNTER 2022-12-18 22:32 | Emergency (ER) | payer OTHER, MEDICAID, SELFPAY ==
--- NOTE | ~2022-12-18 | XR_ITS ---
EXAMINATION: XR CHEST CLINICAL INFORMATION: Chest pain COMPARISON: 11/14/2017 TECHNIQUE: Frontal view of the chest was obtained. FINDINGS: Heart size within normal limits. Bibasilar atelectasis is present. No consolidations or pleural effusions are seen. No evidence of CHF. Compared to the prior study, there's been no significant interval change. XR/XR chest 1V IMPRESSION: No acute intrathoracic disease. Bibasilar atelectasis.
--- NOTE | 2022-12-18 22:40 | ECG_ITS ---
Test Reason : CP Blood Pressure : / mmHG Vent. Rate : 058 BPM Atrial Rate : 058 BPM P-R Int : 176 ms QRS Dur : 092 ms QT Int : 404 ms P-R-T Axes : 034 -15 041 degrees QTc Int : 396 ms Sinus bradycardia Minimal voltage criteria for LVH, may be normal variant ( R in aVL ) Borderline ECG When compared with ECG of 22-OCT-2022 22:04, No significant change was found Referred By: Tiago Lamar Electronically Signed By:GLADIS PAN
[2022-12-18 22:41] VITALS: BP 124/72; BP 132/61; PULSE 56; PULSE 72; RESP 18; TEMP 36.9; O2SAT 97; O2SAT 98; BMI 32.6
--- NOTE | 2022-12-18 23:00 | ED.CHESTPAIN ---
HPI - Chest Pain General Chief Complaint: Chest Pain Stated Complaint: Chest pain Time Seen by Provider: 12/18/22 22:42 Source: patient Mode of arrival: EMS Limitations: no limitations History of Present Illness HPI narrative: Patient history of coronary disease status post multiple stents anterior STEMI 2011 stenting in LAD and OM, severe ostial LAD stenosis in 2020 status post stenting, history of hyperlipidemia PVD hypertension, seizure depression, anxiety been feeling much better since 10/17 did not have significant chest pain comes here for having mid and left chest pain since early today state all day got worse on ambulation no diaphoresis no shortness of breath pain is pressure-like feeling similar to that when he had FL in the past but less severe took 1 nitro last night and 1 EMS and felt much better now chest pain initially was 7/10 now 1- /. Patient on Plavix and aspirin Related Data Home Medications Medication Instructions Recorded Confirmed aspirin 81 mg tablet,delayed 81 mg PO DAILY 07/26/20 10/04/22 release clopidogrel 75 mg tablet 75 mg PO DAILY 07/26/20 10/04/22 isosorbide mononitrate 60 mg 60 mg PO DAILY 07/26/20 10/04/22 tablet,extended release 24 hr nitroglycerin 0.4 mg sublingual 0.4 mg sublingual angina 07/26/20 10/04/22 tablet rosuvastatin 40 mg tablet 40 mg PO DAILY 07/26/20 10/04/22 sertraline 100 mg tablet mg PO 07/26/20 10/04/22 Previous Rx's Medication Instructions Recorded pantoprazole 40 mg tablet,delayed 40 mg PO DAILY #90 tabs 05/25/21 release bisacodyl 5 mg tablet,delayed 10 mg PO BEDTIME Colon prep 2 days 08/22/21 release (Dulcolax (bisacodyl)) #4 tabs polyethylene glycol 3350 17 17 g PO DAILY 1 day #238 grams 08/22/21 gram/dose oral powder (Miralax) sod picosulf 10 mg-magnes 3.5 160 ml PO DAILY 2 doses #320 mL 09/06/21 gram-citric 12 gram/160 mL oral solution (Clenpiq) cyanocobalamin (vitamin B-12) 1,000 mcg PO DAILY #90 tabs 01/25/22 1,000 mcg tablet loperamide 2 mg capsule 2 mg PO QID PRN for diarrhea #112 07/27/22 caps blood pressure monitor (Blood #1 ea 08/18/22 Pressure Kit) pulse oximeter #1 ea 08/18/22 thermometer #1 ea 08/18/22 Allergies Allergy/AdvReac Type Severity Reaction Status Date / Time influenza virus vaccine, Allergy Unknown NAUSEA & Verified 10/22/22 21:52 specific VOMITING [FLU VACCINE] pneumococcal vaccine Allergy Unknown NAUSEA & Verified 10/22/22 21:52 [PNEUMOCOCCAL VACCINE] VOMITING Review of Systems Review of Systems: Yes all other systems are reviewed and are negative [facility] Past Medical History Medical History Hyperlipidemia Obesity Surgical History History of coronary artery stent placement Family History Family History Father COPD (chronic obstructive pulmonary disease) Lung cancer Mother Myocardial infarction Family/Other Diabetes Thyroid disease Social History Social History Housing: Apartment Alcohol intake: former Patient Tobacco Use Status: Former Tobacco user Tobacco use type: Cigarette e-Cigarette/Vaping Use: Never Used Second Hand Smoke Exposure: No Advance Directives: No Advance Directives Information Provided: Yes service: No Current occupational status: disabled Cognitive needs: No Hearing needs: No Vision needs: No Physical Exam Vital Signs: Vital Signs: Last Vital Signs Temp 98.5 F 12/18/22 22:41 Pulse 56 12/18/22 22:41 Resp 18 12/18/22 22:41 BP 132/61 12/18/22 22:41 Pulse Ox 97 12/18/22 22:41 O2 Del Method Room Air 12/18/22 22:41 BMI result Body Mass Index 32.6 Appearance: Alert. Oriented X3. No acute distress. Eyes: No pallor or icterus ENT: Pharynx normal. Oral Mucosa moist Neck: Normal inspection. Neck supple. CVS: Normal heart rate and rhythm. Pulses normal. Respiratory: No respiratory distress. Equal air entry bilateral, no wheezing/rales/rhonchi Abdomen: Soft and nontender. Bowel sounds are present, no mass palpable, no CVA tenderness Skin: Skin warm and dry. Normal skin color. Normal skin turgor. Extremities: No lower extremity edema. No calf tenderness Neuro: Oriented X 3. No motor deficit. No sensory deficit.No cerebellar signs , cranial nerves II-XII intact Medications Administered Discontinued Medications Generic Name Dose Route Start Last Admin Trade Name Freq PRN Reason Stop Dose Admin Heparin Sodium (Porcine) 5,000 unit 12/19/22 01:13 12/19/22 01:33 Heparin Sodium,Porcine 5,000 Unit/Ml Vial IVPUSH 12/19/22 01:14 5,000 unit ONCE ONE Administration Nitroglycerin 0.5 inch 12/18/22 23:10 12/18/22 23:42 Nitroglycerin 2 % Oint 1 Gm Packet TRANSDERMA 12/18/22 23:11 0.5 inch ONCE ONE Administration Medical Decision Making Medical Decision Making [facility] Narrative: Patient with chest pain for last 24 hours with significant coronary disease EKG without any ischemic changes troponin negative patient almost chest pain-free now will admit patient for evaluation 0130 patient chest pain-free refusing to stay in the hospital says that he will follow with his place change roof bolter understood the risk will AMA Differential Diagnosis Unstable angina/ACS/non STEMI Consult Healthcare Provider Management of the patient was discussed with: Hospitalist Lab Data [facility] Lab Attestation statement: I reviewed the patient's lab results. 12/18/22 23:26 12/18/22 23:26 Labs: Lab Results 12/18/22 12/18/22 12/18/22 Range/Units 23:26 23:26 23:26 WBC 7.8 (4.8-10.8) X10*3/uL RBC 4.10 L (4.60-5.80) X10*6/uL Hgb 10.9 L (14.0-18.0) g/dl Hct 34.2 L (42.0-52.0) % MCV 83.4 (80.0-98.0) fL MCH 26.6 L (27.0-33.0) pg MCHC 31.9 (31.0-36.0) g/dl RDW 13.7 (11.0-16.0) % Plt Count 244 (160-400) X10*3/uL MPV 8.9 L (9.4-12.4) fL Immature Gran % (Auto) 0.3 (0.0-0.4) % Neut % (Auto) 56.4 (45-73) % Lymph % (Auto) 29.5 (20-40) % [place] % (Auto) 11.2 H (2-11) % Eos % (Auto) 1.8 (0-4) % Baso % (Auto) 0.8 (0-2) % Lymph # (Auto) 2.3 (1.2-4.9) X10*3/uL [place] # (Auto) 0.9 (0.1-1.2) X10*3/uL Eos # (Auto) 0.1 (0.0-0.4) X10*3/uL Baso # (Auto) 0.1 (0.0-0.2) X10*3/uL Abs Immat Gran (auto) 0.02 (0.00-0.03) X10*3/uL Absolute Neuts (auto) 4.4 (2.0-8.3) x10*3/uL Absolute Nucleated RBC 0.000 (0.0-0.012) X10*3/uL Nucleated RBC % (auto) 0.0 (0.0-0.2) /100WBC PT 11.2 (10.0-13.1) SEC INR 1.0 (0.9-1.1) Sodium 138 (135-145) mmol/L Potassium 4.3 (3.3-5.1) mmol/L Chloride 104 (96-108) mmol/L Carbon Dioxide 28 (22-29) mmol/L Anion Gap 10 L (12-20) BUN 17 H (9-16) mg/dL Creatinine 0.99 (0.5-1.4) mg/dL Estim Creat Clear Calc 97.7 Estimated GFR > 60 Random Glucose 98 (60-115) mg/dL Calcium 9.0 (8.4-10.2) mg/dL Total Bilirubin 0.4 (0.0-1.0) mg/dL AST 14 (5-37) U/L ALT 12 (0-40) U/L Alkaline Phosphatase 87 (39-117) U/L Troponin I High Sens (<3.5-35.0) ng/L Total Protein 6.5 (6.5-8.0) g/dL Albumin 3.9 (3.5-5.0) g/dL 12/18/22 Range/Units 23:26 WBC (4.8-10.8) X10*3/uL RBC (4.60-5.80) X10*6/uL Hgb (14.0-18.0) g/dl Hct (42.0-52.0) % MCV (80.0-98.0) fL MCH (27.0-33.0) pg MCHC (31.0-36.0) g/dl RDW (11.0-16.0) % Plt Count (160-400) X10*3/uL MPV (9.4-12.4) fL Immature Gran % (Auto) (0.0-0.4) % Neut % (Auto) (45-73) % Lymph % (Auto) (20-40) % [place] % (Auto) (2-11) % Eos % (Auto) (0-4) % Baso % (Auto) (0-2) % Lymph # (Auto) (1.2-4.9) X10*3/uL [place] # (Auto) (0.1-1.2) X10*3/uL Eos # (Auto) (0.0-0.4) X10*3/uL Baso # (Auto) (0.0-0.2) X10*3/uL Abs Immat Gran (auto) (0.00-0.03) X10*3/uL Absolute Neuts (auto) (2.0-8.3) x10*3/uL Absolute Nucleated RBC (0.0-0.012) X10*3/uL Nucleated RBC % (auto) (0.0-0.2) /100WBC PT (10.0-13.1) SEC INR (0.9-1.1) Sodium (135-145) mmol/L Potassium (3.3-5.1) mmol/L Chloride (96-108) mmol/L Carbon Dioxide (22-29) mmol/L Anion Gap (12-20) BUN (9-16) mg/dL Creatinine (0.5-1.4) mg/dL Estim Creat Clear Calc Estimated GFR Random Glucose (60-115) mg/dL Calcium (8.4-10.2) mg/dL Total Bilirubin (0.0-1.0) mg/dL AST (5-37) U/L ALT (0-40) U/L Alkaline Phosphatase (39-117) U/L Troponin I High Sens < 2.7 (<3.5-35.0) ng/L Total Protein (6.5-8.0) g/dL Albumin (3.5-5.0) g/dL Independent Interpretation I performed an independent interpretation of an: EKG Interpretation: Sinus bradycardia heart rate 58 beats per minute LVH normal interval normal axis no acute ST T wave changes no acute ischemia Discharge Plan Discharge Clinical Impression: ACS (acute coronary syndrome), Unstable angina Patient Disposition: Left Against Medical Advice
[2022-12-18 23:31] LABS: Basophils Absolute Auto 0.1 X10*3/uL (0.0-0.2); Basophils Percent Auto 0.8 % (0-2); Eosinophils Absolute Auto 0.1 X10*3/uL (0.0-0.4); Eosinophils Percent Auto 1.8 % (0-4); Hematocrit 34.2 % (42.0-52.0); Hemoglobin 10.9 g/dl (14.0-18.0); Imm Gran Abs Auto 0.02 X10*3/uL (0.00-0.03); Imm Gran Pct Auto 0.3 % (0.0-0.4); Lymphocytes Absolute Auto 2.3 X10*3/uL (1.2-4.9); Lymphocytes Percent Auto 29.5 % (20-40); MANUAL DIFF FLAG NO; Mean Corpuscular HGB Conc 31.9 g/dl (31.0-36.0); Mean Corpuscular Hemoglobin 26.6 pg (27.0-33.0); Mean Corpuscular Volume 83.4 fL (80.0-98.0); Mean Platelet Volume 8.9 fL (9.4-12.4); Monocytes Absolute Auto 0.9 X10*3/uL (0.1-1.2); Monocytes Percent Auto 11.2 % (2-11); Neutrophils Absolute Auto 4.4 x10*3/uL (2.0-8.3); Neutrophils Percent Auto 56.4 % (45-73); Platelet Count 244 X10*3/uL (160-400); Red Cell Distribution Width 13.7 % (11.0-16.0); White Blood Count 7.8 X10*3/uL (4.8-10.8)
[2022-12-18] MEDS: Nitroglycerin 2 % Oint 1 GM Packet 0.5 INCH TRANSDERMA (23:42)
[2022-12-18 23:55] LABS: Prothrombin Time 11.2 SEC (10.0-13.1)
[2022-12-19 00:03] LABS: Alanine Aminotransferase 12 U/L (0-40); Albumin Level 3.9 g/dL (3.5-5.0); Alkaline Phosphatase 87 U/L (39-117); Anion Gap 10 (12-20); Aspartate Amino Transferase 14 U/L (5-37); Bilirubin Total 0.4 mg/dL (0.0-1.0); Blood Urea Nitrogen 17 mg/dL (9-16); Carbon Dioxide 28 mmol/L (22-29); Chloride 104 mmol/L (96-108); Creatinine Clr Calc Pharmacy 97.7; Estimated Glomerular Filt Rate > 60; Glucose Random 98 mg/dL (60-115); Potassium 4.3 mmol/L (3.3-5.1); Sodium 138 mmol/L (135-145); Total Protein 6.5 g/dL (6.5-8.0)
[2022-12-19 00:08] LABS: Troponin-I High Sensitivity < 2.7 ng/L (<3.5-35.0)
--- NOTE | 2022-12-19 01:18 | P.HPHOSP_ITS ---
History of Present Illness Date of Service: 12/19/22 Chief Complaint: Chest pain [facility] Medical History Hyperlipidemia Obesity Family History Father COPD (chronic obstructive pulmonary disease) Lung cancer Mother Myocardial infarction Family/Other Diabetes Thyroid disease Surgical History History of coronary artery stent placement Social History Housing: Apartment Alcohol intake: former Patient Tobacco Use Status: Former Tobacco user Tobacco use type: Cigarette e-Cigarette/Vaping Use: Never Used Second Hand Smoke Exposure: No Advance Directives: No Advance Directives Information Provided: Yes service: No Current occupational status: disabled Cognitive needs: No Hearing needs: No Vision needs: No Meds Allergies Allergy/AdvReac Type Severity Reaction Status Date / Time influenza virus vaccine, Allergy Unknown NAUSEA & Verified 10/22/22 21:52 specific VOMITING [FLU VACCINE] pneumococcal vaccine Allergy Unknown NAUSEA & Verified 10/22/22 21:52 [PNEUMOCOCCAL VACCINE] VOMITING Active Medications: Current Medications Heparin Sodium (Porcine) (Heparin Sodium,Porcine 5,000 Unit/Ml Vial) 4,600 unit 40 unit/kg (4600 unit) IVPUSH PROTOCOL BOLUS PRN; Protocol PRN Reason: 40 unit/kg - Heparin Protocol Heparin Sodium (Porcine) (Heparin Sodium,Porcine 5,000 Unit/Ml Vial) 9,200 unit 80 unit/kg (9200 unit) IVPUSH PROTOCOL BOLUS PRN; Protocol PRN Reason: 80 unit/kg - Heparin Protocol Heparin Sodium/Sodium Chloride (Heparin Sodium,Porcine/1/2ns) 25,000 unit in 250 mls @ 0 mls/hr IVCONT .Q0M MARCY; Protocol Home Medications Medication Instructions Recorded Confirmed Last Taken Type aspirin 81 mg tablet,delayed 81 mg PO DAILY 07/26/20 10/04/22 Unknown History release clopidogrel 75 mg tablet 75 mg PO DAILY 07/26/20 10/04/22 Unknown History isosorbide mononitrate 60 mg 60 mg PO DAILY 07/26/20 10/04/22 Unknown History tablet,extended release 24 hr nitroglycerin 0.4 mg sublingual 0.4 mg sublingual angina 07/26/20 10/04/22 Unknown History tablet rosuvastatin 40 mg tablet 40 mg PO DAILY 07/26/20 10/04/22 Unknown History sertraline 100 mg tablet mg PO 07/26/20 10/04/22 Unknown History Physical Exam Vital Signs and Narrative: Vital Signs: Last Vital Signs Temp 98.5 F 12/18/22 22:41 Pulse 56 12/18/22 22:41 Resp 18 12/18/22 22:41 BP 132/61 12/18/22 22:41 Pulse Ox 97 12/18/22 22:41 O2 Del Method Room Air 12/18/22 22:41 BMI result Body Mass Index 32.6 Results Labs 12/18/22 23:26 12/18/22 23:26 Labs: Laboratory Results - last 24 hr 12/18/22 12/18/22 12/18/22 23:26 23:26 23:26 MCV 83.4 MCH 26.6 L MCHC 31.9 RDW 13.7 Plt Count 244 MPV 8.9 L Immature Gran % (Auto) 0.3 Neut % (Auto) 56.4 Lymph % (Auto) 29.5 Sam[place] % (Auto) 11.2 H Eos % (Auto) 1.8 Baso % (Auto) 0.8 Lymph # (Auto) 2.3 [place] # (Auto) 0.9 Eos # (Auto) 0.1 Baso # (Auto) 0.1 Abs Immat Gran (auto) 0.02 Absolute Neuts (auto) 4.4 Absolute Nucleated RBC 0.000 Nucleated RBC % (auto) 0.0 PT 11.2 INR 1.0 Anion Gap 10 L Estim Creat Clear Calc 97.7 Estimated GFR > 60 Random Glucose 98 Calcium 9.0 Total Bilirubin 0.4 AST 14 ALT 12 Alkaline Phosphatase 87 Troponin I High Sens Total Protein 6.5 Albumin 3.9 12/18/22 23:26 MCV MCH MCHC RDW Plt Count MPV Immature Gran % (Auto) Neut % (Auto) Lymph % (Auto) [place] % (Auto) Eos % (Auto) Baso % (Auto) Lymph # (Auto) [place] # (Auto) Eos # (Auto) Baso # (Auto) Abs Immat Gran (auto) Absolute Neuts (auto) Absolute Nucleated RBC Nucleated RBC % (auto) PT INR Anion Gap Estim Creat Clear Calc Estimated GFR Random Glucose Calcium Total Bilirubin AST ALT Alkaline Phosphatase Troponin I High Sens < 2.7 Total Protein Albumin Imaging Radiologist's Impressions: Impressions Chest X-Ray 12/18/22 23:20 IMPRESSION: No acute intrathoracic disease. Bibasilar atelectasis. Assessment and Plan Time Spent With Patient Time: Total time managing care of this patient today ____ minutes. Quality VTE VTE Risk Level:: Medical - moderate - high VTE Device Contraindication: Treatment Not Indicated VTE Drug Contraindication: N/A - Med Ordered
[2022-12-19] MEDS: Heparin Sodium,Porcine 5,000 UNIT/ML VIAL 5000 UNIT IVPUSH (01:33)
--- NOTE | 2022-12-19 02:36 | PC.NURSE ---
pt left AMA. pt was advised by MD and nurse to continue the care treatment at the hospital, but pt confused. pt has been informed of the danger of leaving AMA. Pt verbalized understanding and states that he will f/u with PCP or come to the ED if he experiences any CP, SOB, feeling of faint, numbness/tingling to extremities or generalize weakness. pt ambulated from ED without difficulty.
--- NOTE | 2022-12-19 07:03 | PHA.MEDREC ---
Pharmacy Consult ? Medication Reconciliation Patient left AMA, med rec was not complete.
== END 2022-12-19 02:39 | disposition left against medical advice (07) ==
LOC: HO.ED 12-19 01:11 → HO.EDOVER 12-19 01:35 → HO.ED 12-19 01:42
PROVIDERS: Emergency Provider Internal Medicine; PCP Internal Medicine
DX: I24.9 Acute ischemic heart disease, unspecified (principal); I20.0 Unstable angina; I10 Essential (primary) hypertension; E78.5 Hyperlipidemia, unspecified; Z79.02 Long term (current) use of antithrombotics/antiplatelets; Z79.899 Other long term (current) drug therapy
CPT/HCPCS: 36415; 71045; 80053; 84484; 85025; 85610; 93005; 96374; 99284; 99285; J1643

== ENCOUNTER 2022-12-19 12:15 | Emergency (ER) | payer OTHER, MEDICAID, SELFPAY ==
--- NOTE | ~2022-12-19 | XR_ITS ---
EXAMINATION: XR CHEST CLINICAL INFORMATION: Chest pain COMPARISON: 12/18/2022 TECHNIQUE: AP upright and lateral views of the chest FINDINGS: Lungs are hyperexpanded. Linear band of pleural parenchymal scarring is again seen in the region of the right middle lobe. No new airspace consolidation. Mild bibasilar atelectasis. No effusion or pneumothorax. Cardiac and mediastinal contours are unchanged. Bones are osteopenic. Degenerative spondylosis in the thoracic spine. No acute osseous findings. XR/XR chest 2V IMPRESSION: No acute pulmonary findings. Mild bibasilar atelectasis. Chronic pleural parenchymal scarring in the right middle lobe.
--- NOTE | 2022-12-19 12:22 | ECG_ITS ---
Test Reason : CP Blood Pressure : / mmHG Vent. Rate : 065 BPM Atrial Rate : 065 BPM P-R Int : 186 ms QRS Dur : 096 ms QT Int : 402 ms P-R-T Axes : 043 -11 050 degrees QTc Int : 418 ms Normal sinus rhythm Minimal voltage criteria for LVH, may be normal variant ( R in aVL ) Borderline ECG When compared with ECG of 18-DEC-2022 22:40, No significant change was found Referred By: Tayo Lucio Electronically Signed By:GLADIS PAN
[2022-12-19 12:24] VITALS: BP 117/53; BP 122/70; PULSE 65; PULSE 80; RESP 18; TEMP 36.6; O2SAT 90; O2SAT 96; BMI 34.6
--- NOTE | 2022-12-19 12:24 | ED.GENADULT ---
HPI - General Adult General Chief complaint: Chest Pain Stated complaint: CP Time Seen by Provider: 12/19/22 12:23 Source: patient, EMS and RN notes reviewed Mode of arrival: EMS Limitations: no limitations History of Present Illness HPI narrative: Patient is a 67-year-old male with history of CAD, anterior STEMI in 2011 with prior stenting of the LAD and subsequent stenting of the OM in 2013, known residual disease in pRCA and pLAD, HLD, PVD, HTN, GERD, seizures, depression, anxiety, anemia, and small-bowel obstruction presenting to the emergency department with chest pain since 11:00 a.m. today. He is currently on Plavix and ASA with NTG as needed. He was seen in this emergency department yesterday after having 24 hours of chest pain, was pending admission for ACS rule out and left against medical advice. Patient states that he left because his pain had improved. He states that he felt okay until his pain returned at 11:00 a.m. today. He took 2 of his own sublingual nitroglycerin tabs at home and was also given 324 mg of aspirin by EMS. Patient reports little relief of pain from nitro but states better relief of pain from aspirin and rates his pain currently at 4/10. He denies dyspnea at rest but does report dyspnea on exertion. He denies any fevers. He denies any abdominal pain, nausea, vomiting, diarrhea, or constipation. MD complaint: Chest pain Onset (ago): hour(s) Location: chest Radiation: non-radiation Severity scale (1-10): 4 Quality: dull Pain Consistency: constant Relieving factors: medication (ASA) Exacerbating factors: none Associated symptoms: shortness of breath Treatments prior to arrival: aspirin and other (NTG) Related Data Home Medications Medication Instructions Recorded Confirmed aspirin 81 mg tablet,delayed 81 mg PO DAILY 07/26/20 10/04/22 release clopidogrel 75 mg tablet 75 mg PO DAILY 07/26/20 10/04/22 isosorbide mononitrate 60 mg 60 mg PO DAILY 07/26/20 10/04/22 tablet,extended release 24 hr nitroglycerin 0.4 mg sublingual 0.4 mg sublingual angina 07/26/20 10/04/22 tablet rosuvastatin 40 mg tablet 40 mg PO DAILY 07/26/20 10/04/22 sertraline 100 mg tablet mg PO 07/26/20 10/04/22 Previous Rx's Medication Instructions Recorded pantoprazole 40 mg tablet,delayed 40 mg PO DAILY #90 tabs 05/25/21 release bisacodyl 5 mg tablet,delayed 10 mg PO BEDTIME Colon prep 2 days 08/22/21 release (Dulcolax (bisacodyl)) #4 tabs polyethylene glycol 3350 17 17 g PO DAILY 1 day #238 grams 08/22/21 gram/dose oral powder (Miralax) sod picosulf 10 mg-magnes 3.5 160 ml PO DAILY 2 doses #320 mL 09/06/21 gram-citric 12 gram/160 mL oral solution (Clenpiq) cyanocobalamin (vitamin B-12) 1,000 mcg PO DAILY #90 tabs 01/25/22 1,000 mcg tablet loperamide 2 mg capsule 2 mg PO QID PRN for diarrhea #112 07/27/22 caps blood pressure monitor (Blood #1 ea 08/18/22 Pressure Kit) pulse oximeter #1 ea 08/18/22 thermometer #1 ea 08/18/22 Allergies Allergy/AdvReac Type Severity Reaction Status Date / Time influenza virus vaccine, Allergy Unknown NAUSEA & Verified 10/22/22 21:52 specific VOMITING [FLU VACCINE] pneumococcal vaccine Allergy Unknown NAUSEA & Verified 10/22/22 21:52 [PNEUMOCOCCAL VACCINE] VOMITING Review of Systems Review of Systems: As per HPI Yes all other systems are reviewed and are negative Constitutional: Constitutional: Reports as per HPI [facility] Past Medical History Medical History Hyperlipidemia Obesity Surgical History History of coronary artery stent placement Family History Family History Father COPD (chronic obstructive pulmonary disease) Lung cancer Mother Myocardial infarction Family/Other Diabetes Thyroid disease Social History Social History Housing: Apartment Alcohol intake: never Patient Tobacco Use Status: Former Tobacco user Tobacco use type: Cigarette Smoked in Last 30 Days: Yes e-Cigarette/Vaping Use: Never Used Second Hand Smoke Exposure: No Advance Directives: No Advance Directives Information Provided: No service: No Current occupational status: disabled Cognitive needs: No Hearing needs: No Vision needs: No Physical Exam ED Vital Signs: Vital Signs - 24 hr 12/19/22 12:24 12/19/22 13:48 12/19/22 15:11 Temperature 97.8 F Pulse Rate 65 61 62 Respiratory Rate 18 14 14 Blood Pressure 117/53 L 128/57 L 121/59 L Pulse Oximetry 96 99 98 Oxygen Delivery Method Room Air Room Air Room Air 12/19/22 17:51 Temperature Pulse Rate 64 Respiratory Rate 16 Blood Pressure 111/63 Pulse Oximetry 97 Oxygen Delivery Method Room Air BMI result Body Mass Index 34.6 Vital signs have been reviewed and appear to be correct. Blood pressure normal. Heart rate normal. Respiratory rate normal. Temperature normal. Oxygen saturation normal. Const General: cooperative and no acute distress Orientation/consciousness: oriented to person, oriented to place, oriented to time and patient oriented x3 Limitations: no limitations HENMT Head: Yes normocephalic and Yes atraumatic Ears: external ears normal General nose exam: Normal external nose present Face and sinus: Yes face symmetric Mouth: oropharynx normal and moist mucous membranes Throat: Yes uvula midline Eyes Pupils: Equal, round and reactive pupils present Neck Neck: Yes normal visual inspection and Yes supple Chest Chest palpation & inspection: normal inspection of the chest and normal palpation of entire chest wall Resp Effort & Inspection: normal respiratory effort and able to speak in complete sentences Auscultation: clear to auscultation bilaterally Cardio Rate: regular rate Rhythm: regular rhythm Heart sounds: S1 normal heart sound present and S2 normal heart sound present GI Palpation (GI): Soft to palpation and nontender Auscultation: normoactive bowel sounds General: Yes no CVA tenderness Back/Spine/Pelvis Back: no CVA tenderness Skin General skin exam: elasticity normal and turgor normal Neuro General: oriented to person, oriented to place, oriented to time, patient oriented x3, moves all extremities, no focal motor deficits and CN's II-XI intact bilaterally Cranial nerves: Yes Equal, round and reactive pupils present Cognition (Neuro): normal cognition Extrem General: Yes full ROM, Yes no pedal edema and Yes no calf tenderness Psych Mental Status: mental status grossly normal Affect: normal affect Thought process: Normal thought process present Course Course Course Narrative: 13:30 Critical troponin of 165.5 received from lab. [place] text to Dr. Romero. 13:[address] Romero patient needs transfer to [facility] [place] cardiac cath. Patient updated on results and plan of care, all questions answered. 13:43 Spoke with transfer line at [facility]. Will obtain Covid swab and medicate with morphine for 4/10 pain. 14:17 Spoke with Gris from [facility] transfer line as well as Dr. Edwards. He will accept patient to the CCU, however no beds currently available. He recommends starting patient on a heparin drip and they will contact us when a bed is available. Patient states pain is now a 2/10 after morphine. Patient update on the plan. 14:58 FINDINGS: Lungs are hyperexpanded. Linear band of pleural parenchymal scarring is again seen in the region of the right middle lobe. No new airspace consolidation. Mild bibasilar atelectasis. No effusion or pneumothorax. Cardiac and mediastinal contours are unchanged. Bones are osteopenic. Degenerative spondylosis in the thoracic spine. No acute osseous findings. XR/XR chest 2V IMPRESSION: No acute pulmonary findings. Mild bibasilar atelectasis. Chronic pleural parenchymal scarring in the right middle lobe. 16:15 Patient signed out to [facility]. Reevaluation(s) Reevaluation #1: I received sign-out this patient, EMS your to pick patient up in bring to CCU. Medications Administered Generic Name Dose Route Start Last Admin Trade Name Freq PRN Reason Stop Dose Admin Heparin Sodium/Sodium Chloride 25,000 unit in 250 mls @ 0 mls/hr 12/19/22 14:15 12/19/22 15:21 Heparin Sodium,Porcine/1/2ns IVCONT 8.19 units/kg/hr .Q0M MARCY 10 mls/hr Administration Protocol Per Protocol Discontinued Medications Generic Name Dose Route Start Last Admin Trade Name Freq PRN Reason Stop Dose Admin Heparin Sodium (Porcine) 4,000 unit 12/19/22 14:13 12/19/22 15:19 Heparin Sodium,Porcine 5,000 Unit/Ml Vial IVPUSH 12/19/22 14:14 4,000 unit ONCE ONE Administration Morphine Sulfate 4 mg 12/19/22 13:42 12/19/22 13:57 Morphine Sulfate 4 Mg/Ml Cartridge IVPUSH 12/19/22 13:43 4 mg ONCE ONE Administration Protocol Nitroglycerin 1 inch 12/19/22 17:46 12/19/22 17:52 Nitroglycerin 2 % Oint 1 Gm Packet TRANSDERMA 12/19/22 17:47 1 inch ONCE ONE Administration Medical Decision Making Medical Decision Making [facility] Narrative: Patient is a 67-year-old male with history of CAD, anterior STEMI in 2011 with prior stenting of the LAD and subsequent stenting of the OM in 2013, known residual disease in pRCA and pLAD, HLD, PVD, HTN, GERD, seizures, depression, anxiety, anemia, and small-bowel obstruction presenting to the emergency department with chest pain since 11:00 a.m. today. On exam patient is awake, A+Ox3, normal neurological exam without focal deficits, lungs CTA throughout, abdomen soft and nontender. No evidence of acute STEMI on EKG. Based on history and reported symptoms concern for ACS, unstable angina. Also considered AAA rupture, aortic dissection, esophaegeal rupture. Less likely PE (Low risk [place]), pneumothorax, cardiac tamponade, pneumonia. Plan: EKG, labs, CXR, reassess Please refer to course for remaining clinical decision-making. Differential Diagnosis Differential Diagnoses: The differential diagnosis associated with the presentation includes As above. Admission/Observation Consideration of admission/observation: Escalation of care including admission/observation considered Lab Data [facility] Lab Attestation statement: I reviewed the patient's lab results. 12/19/22 12:38 12/19/22 12:38 Labs: Lab Results 12/19/22 12/19/22 12/19/22 Range/Units 12:38 12:38 12:38 WBC 6.6 (4.8-10.8) X10*3/uL RBC 4.35 L (4.60-5.80) X10*6/uL Hgb 11.7 L (14.0-18.0) g/dl Hct 36.3 L (42.0-52.0) % MCV 83.4 (80.0-98.0) fL MCH 26.9 L (27.0-33.0) pg MCHC 32.2 (31.0-36.0) g/dl RDW 13.6 (11.0-16.0) % Plt Count 269 (160-400) X10*3/uL MPV 9.0 L (9.4-12.4) fL Immature Gran % (Auto) 0.2 (0.0-0.4) % Neut % (Auto) 58.0 (45-73) % Lymph % (Auto) 27.6 (20-40) % [place] % (Auto) 11.3 H (2-11) % Eos % (Auto) 2.1 (0-4) % Baso % (Auto) 0.8 (0-2) % Lymph # (Auto) 1.8 (1.2-4.9) X10*3/uL [place] # (Auto) 0.7 (0.1-1.2) X10*3/uL Eos # (Auto) 0.1 (0.0-0.4) X10*3/uL Baso # (Auto) 0.1 (0.0-0.2) X10*3/uL Abs Immat Gran (auto) 0.01 (0.00-0.03) X10*3/uL Absolute Neuts (auto) 3.8 (2.0-8.3) x10*3/uL Absolute Nucleated RBC 0.000 (0.0-0.012) X10*3/uL Nucleated RBC % (auto) 0.0 (0.0-0.2) /100WBC PT (10.0-13.1) SEC INR (0.9-1.1) aPTT Heparin Protocol (53-77.9) SEC Sodium 139 (135-145) mmol/L Potassium 3.8 (3.3-5.1) mmol/L Chloride 104 (96-108) mmol/L Carbon Dioxide 26 (22-29) mmol/L Anion Gap 13 (12-20) BUN 14 (9-16) mg/dL Creatinine 1.02 (0.5-1.4) mg/dL Estim Creat Clear Calc 97.5 Estimated GFR > 60 Random Glucose 103 (60-115) mg/dL Calcium 9.1 (8.4-10.2) mg/dL Total Bilirubin 0.5 (0.0-1.0) mg/dL AST 17 (5-37) U/L ALT 12 (0-40) U/L Alkaline Phosphatase 92 (39-117) U/L Troponin I High Sens 165.5 H* D (<3.5-35.0) ng/L Total Protein 6.9 (6.5-8.0) g/dL Albumin 4.0 (3.5-5.0) g/dL COVID-19 (ELAYNE) (Negative) COVID-19 Clin Com 12/19/22 12/19/22 12/19/22 Range/Units 12:38 13:49 14:33 WBC 6.9 (4.8-10.8) X10*3/uL RBC 4.34 L (4.60-5.80) X10*6/uL Hgb 11.5 L (14.0-18.0) g/dl Hct 35.8 L (42.0-52.0) % MCV 82.5 (80.0-98.0) fL MCH 26.5 L (27.0-33.0) pg MCHC 32.1 (31.0-36.0) g/dl RDW 13.5 (11.0-16.0) % Plt Count 273 (160-400) X10*3/uL MPV 9.1 L (9.4-12.4) fL Immature Gran % (Auto) (0.0-0.4) % Neut % (Auto) (45-73) % Lymph % (Auto) (20-40) % [place] % (Auto) (2-11) % Eos % (Auto) (0-4) % Baso % (Auto) (0-2) % Lymph # (Auto) (1.2-4.9) X10*3/uL [place] # (Auto) (0.1-1.2) X10*3/uL Eos # (Auto) (0.0-0.4) X10*3/uL Baso # (Auto) (0.0-0.2) X10*3/uL Abs Immat Gran (auto) (0.00-0.03) X10*3/uL Absolute Neuts (auto) (2.0-8.3) x10*3/uL Absolute Nucleated RBC 0.000 (0.0-0.012) X10*3/uL Nucleated RBC % (auto) 0.0 (0.0-0.2) /100WBC PT 11.8 (10.0-13.1) SEC INR 1.0 (0.9-1.1) aPTT Heparin Protocol (53-77.9) SEC Sodium (135-145) mmol/L Potassium (3.3-5.1) mmol/L Chloride (96-108) mmol/L Carbon Dioxide (22-29) mmol/L Anion Gap (12-20) BUN (9-16) mg/dL Creatinine (0.5-1.4) mg/dL Estim Creat Clear Calc Estimated GFR Random Glucose (60-115) mg/dL Calcium (8.4-10.2) mg/dL Total Bilirubin (0.0-1.0) mg/dL AST (5-37) U/L ALT (0-40) U/L Alkaline Phosphatase (39-117) U/L Troponin I High Sens (<3.5-35.0) ng/L Total Protein (6.5-8.0) g/dL Albumin (3.5-5.0) g/dL COVID-19 (ELAYNE) Negative (Negative) COVID-19 Clin Com See Note 12/19/22 12/19/22 Range/Units 14:33 16:37 WBC (4.8-10.8) X10*3/uL RBC (4.60-5.80) X10*6/uL Hgb (14.0-18.0) g/dl Hct (42.0-52.0) % MCV (80.0-98.0) fL MCH (27.0-33.0) pg MCHC (31.0-36.0) g/dl RDW (11.0-16.0) % Plt Count (160-400) X10*3/uL MPV (9.4-12.4) fL Immature Gran % (Auto) (0.0-0.4) % Neut % (Auto) (45-73) % Lymph % (Auto) (20-40) % [place] % (Auto) (2-11) % Eos % (Auto) (0-4) % Baso % (Auto) (0-2) % Lymph # (Auto) (1.2-4.9) X10*3/uL [place] # (Auto) (0.1-1.2) X10*3/uL Eos # (Auto) (0.0-0.4) X10*3/uL Baso # (Auto) (0.0-0.2) X10*3/uL Abs Immat Gran (auto) (0.00-0.03) X10*3/uL Absolute Neuts (auto) (2.0-8.3) x10*3/uL Absolute Nucleated RBC (0.0-0.012) X10*3/uL Nucleated RBC % (auto) (0.0-0.2) /100WBC PT 11.2 (10.0-13.1) SEC INR 1.0 (0.9-1.1) aPTT Heparin Protocol 30.3 L (53-77.9) SEC Sodium (135-145) mmol/L Potassium (3.3-5.1) mmol/L Chloride (96-108) mmol/L Carbon Dioxide (22-29) mmol/L Anion Gap (12-20) BUN (9-16) mg/dL Creatinine (0.5-1.4) mg/dL Estim Creat Clear Calc Estimated GFR Random Glucose (60-115) mg/dL Calcium (8.4-10.2) mg/dL Total Bilirubin (0.0-1.0) mg/dL AST (5-37) U/L ALT (0-40) U/L Alkaline Phosphatase (39-117) U/L Troponin I High Sens 215.4 H* (<3.5-35.0) ng/L Total Protein (6.5-8.0) g/dL Albumin (3.5-5.0) g/dL COVID-19 (ELAYNE) (Negative) COVID-19 Clin Com Independent Interpretation I performed an independent interpretation of an: EKG Interpretation: EKG: normal sinus rhythm, rate 65 bpm, normal SC/QT intervals, no evidence of STEMI Discharge Plan Discharge Clinical Impression: Unstable angina, Chest pain Patient Disposition: er [facility] Transfer Details: Dr. Edwards. [facility] Prescriptions: No Action pantoprazole 40 mg tablet,delayed release (DR/EC) 40 mg PO DAILY Qty: 90 8RF Clenpiq 10 mg-3.5 gram -12 gram/160 mL solution 160 ml PO DAILY Qty: 320 0RF Rx Instructions: take first dose at 5-9PM evening before colonoscopy; 2nd dose the next day approximately 5 hrs before colonoscopy cyanocobalamin (vitamin B-12) 1,000 mcg tablet 1,000 mcg PO DAILY Qty: 90 8RF loperamide 2 mg capsule 2 mg PO QID PRN (Reason: for diarrhea) Qty: 112 3RF (DME) blood pressure monitor [Blood Pressure Kit] Kit See Rx Instructions .Route Qty: 1 0RF Rx Instructions: As directed (DME) pulse oximeter See Rx Instructions .Route .MEDSUPPLY Qty: 1 0RF Rx Instructions: As directed (DME) thermometer See Rx Instructions .Route .MEDSUPPLY Qty: 1 0RF Rx Instructions: As directed rosuvastatin 40 mg tablet 40 mg PO DAILY isosorbide mononitrate 60 mg tablet extended release 24 hr 60 mg PO DAILY clopidogrel 75 mg tablet 75 mg PO DAILY sertraline 100 mg tablet PO aspirin 81 mg tablet,delayed release (DR/EC) 81 mg PO DAILY nitroglycerin 0.4 mg tablet, sublingual 0.4 mg sublingual polyethylene glycol 3350 [Miralax] 17 gram/dose powder 17 g PO DAILY 1 Days Qty: 238 0RF Rx Instructions: Mix Miralax with 64 oz(8 cups) of Crystal light. Take 2 tablets of Dulcolax qt 12 pm. Wait to have your 1st bowel movement, then begin drinking Miralax. Drink a glass of Miralax every 10-15 minutes until you are finished. You will drink at least another 4 cups of clear liquid of your choice over the next 2 hours. Please drink as many clear liquids as possible You may have clear liquids up to four hours before your procedure bisacodyl [Dulcolax (bisacodyl)] 5 mg tablet,delayed release (DR/EC) 10 mg PO BEDTIME 2 Days Qty: 4 0RF Rx Instructions: Take 2 tablets at noon 2 days before colonoscopy. Take 2 tablets at noon 1 day before colonoscopy
[2022-12-19 12:43] LABS: MANUAL DIFF FLAG NO
[2022-12-19 12:45] LABS: Basophils Absolute Auto 0.1 X10*3/uL (0.0-0.2); Basophils Percent Auto 0.8 % (0-2); Eosinophils Absolute Auto 0.1 X10*3/uL (0.0-0.4); Eosinophils Percent Auto 2.1 % (0-4); Hematocrit 36.3 % (42.0-52.0); Hemoglobin 11.7 g/dl (14.0-18.0); Imm Gran Abs Auto 0.01 X10*3/uL (0.00-0.03); Imm Gran Pct Auto 0.2 % (0.0-0.4); Lymphocytes Absolute Auto 1.8 X10*3/uL (1.2-4.9); Lymphocytes Percent Auto 27.6 % (20-40); Mean Corpuscular HGB Conc 32.2 g/dl (31.0-36.0); Mean Corpuscular Hemoglobin 26.9 pg (27.0-33.0); Mean Corpuscular Volume 83.4 fL (80.0-98.0); Monocytes Absolute Auto 0.7 X10*3/uL (0.1-1.2); Monocytes Percent Auto 11.3 % (2-11); Neutrophils Absolute Auto 3.8 x10*3/uL (2.0-8.3); Platelet Count 269 X10*3/uL (160-400); Red Blood Count 4.35 X10*6/uL (4.60-5.80); Red Cell Distribution Width 13.6 % (11.0-16.0); White Blood Count 6.6 X10*3/uL (4.8-10.8)
[2022-12-19 12:59] LABS: Prothrombin Time 11.8 SEC (10.0-13.1)
[2022-12-19 13:04] LABS: Alanine Aminotransferase 12 U/L (0-40); Alkaline Phosphatase 92 U/L (39-117); Anion Gap 13 (12-20); Aspartate Amino Transferase 17 U/L (5-37); Bilirubin Total 0.5 mg/dL (0.0-1.0); Blood Urea Nitrogen 14 mg/dL (9-16); Calcium 9.1 mg/dL (8.4-10.2); Carbon Dioxide 26 mmol/L (22-29); Chloride 104 mmol/L (96-108); Creatinine Clr Calc Pharmacy 97.5; Estimated Glomerular Filt Rate > 60; Glucose Random 103 mg/dL (60-115); Potassium 3.8 mmol/L (3.3-5.1); Sodium 139 mmol/L (135-145); Total Protein 6.9 g/dL (6.5-8.0)
[2022-12-19 13:25] LABS: Troponin-I High Sensitivity 165.5 ng/L (<3.5-35.0)
[2022-12-19 13:48] VITALS: BP 128/57; PULSE 61; RESP 14; O2SAT 99
[2022-12-19] MEDS: Morphine Sulfate 4 MG/ML CARTRIDGE IVPUSH (13:57)
[2022-12-19 14:10] LABS: COVID-19 Test Negative (Negative); IDNOW Serial# 9DB6401D
[2022-12-19 14:45] LABS: Hematocrit 35.8 % (42.0-52.0); Hemoglobin 11.5 g/dl (14.0-18.0); Mean Corpuscular HGB Conc 32.1 g/dl (31.0-36.0); Mean Corpuscular Hemoglobin 26.5 pg (27.0-33.0); Mean Corpuscular Volume 82.5 fL (80.0-98.0); Mean Platelet Volume 9.1 fL (9.4-12.4); Platelet Count 273 X10*3/uL (160-400); Red Blood Count 4.34 X10*6/uL (4.60-5.80); Red Cell Distribution Width 13.5 % (11.0-16.0); White Blood Count 6.9 X10*3/uL (4.8-10.8)
[2022-12-19 15:06] LABS: Prothrombin Time 11.2 SEC (10.0-13.1)
[2022-12-19 15:09] LABS: PTT Heparin Drip 30.3 SEC (53-77.9)
[2022-12-19 15:11] VITALS: BP 121/59; PULSE 62; RESP 14; O2SAT 98
[2022-12-19] MEDS: Heparin Sodium,Porcine 5,000 UNIT/ML VIAL 4000 UNIT IVPUSH (15:19)
[2022-12-19] MEDS: Heparin Sodium,Porcine/1/2NS 25,000 UNIT/250 ML IV.SOLN 10 UNIT IVCONT (15:21)
[2022-12-19 17:28] LABS: Troponin-I High Sensitivity 215.4 ng/L (<3.5-35.0)
--- NOTE | 2022-12-19 17:42 | PC.NURSE ---
attempted to call nurse to nurse report to [facility] x2
--- NOTE | 2022-12-19 17:45 | MHC.EDTECH ---
pt received a bed assignment from [facility] at 1713 pt will be going out via [place] in 30 mins. pt will be going to [facility] bed 5 rm 1
[2022-12-19 17:51] VITALS: BP 111/63; PULSE 64; RESP 16; O2SAT 97
[2022-12-19] MEDS: Nitroglycerin 2 % Oint 1 GM Packet 1 INCH TRANSDERMA (17:52)
--- NOTE | 2022-12-19 18:18 | PC.NURSE ---
report given to [facility] ISAURO
== END 2022-12-19 18:48 | disposition short-term general hospital (02) ==
PROVIDERS: Physician Assistant; Registered Nurse Emergency; Emergency Provider Emergency Medicine Emergency Medical Services; PCP Internal Medicine
DX: I25.110 Atherosclerotic heart disease of native coronary artery with unstable angina pectoris (principal); R07.9 Chest pain, unspecified; I73.9 Peripheral vascular disease, unspecified; I10 Essential (primary) hypertension; I25.2 Old myocardial infarction; E78.5 Hyperlipidemia, unspecified; K21.9 Gastro-esophageal reflux disease without esophagitis; Z20.822 Contact with and (suspected) exposure to COVID-19
CPT/HCPCS: 36415; 71046; 80053; 84484; 85025; 85027; 85610; 85730; 87635; 93005; 96365; 96366; 96375; 99285; J1643; J2270

== ENCOUNTER 2023-02-02 19:33 | Emergency (ER) | payer OTHER, MEDICAID, SELFPAY ==
[2023-02-02 19:38] VITALS: BP 102/53; PULSE 69; O2SAT 97
[2023-02-02 20:01] VITALS: BP 105/42; PULSE 69; RESP 18; TEMP 36.7; O2SAT 96; BMI 32.0
[2023-02-02 20:47] VITALS: BP 108/42; PULSE 69; RESP 18; TEMP 36.7; O2SAT 96
--- NOTE | 2023-02-02 20:48 | PC.NURSE ---
Pt ca&ox3, no signs of distress. Vitals stable. EKG completed. Pt placed on bedside monitor. Blood drawn. Wctm.
--- NOTE | 2023-02-02 21:17 | PC.NURSE ---
pt family stating that pt has 10/10 chest pain. MD aware. pt laying comfortably n stretcher does not appear to be in any distress. 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 respirations even and unlabored. will do epeat ekg.
--- NOTE | 2023-02-02 21:24 | MHC.EDTECH ---
PATIENT COMPLAINING OF 10 -10 CHEST PAIN ,2 ND EKG DONE AND WAS READ BY PROVIDER ,VITALS SIGN TAKEN ,PROVIDER AND FAMILY MEMBER IN ROOM .
[2023-02-02 21:39] VITALS: RESP 17
[2023-02-02 21:49] VITALS: BP 100/52; PULSE 62; RESP 14; TEMP 36.3; O2SAT 97
--- NOTE | 2023-02-02 21:50 | MHC.EDTECH ---
REPEATED TROP DRAWN AND SENT TO LAB ,VITALS SIGN RE CHECK .
--- NOTE | 2023-02-02 22:27 | ED.CHESTPAIN ---
HPI - Chest Pain General Chief Complaint: Chest Pain Stated Complaint: left sided facial droop, per ems Time Seen by Provider: 02/02/23 19:36 Source: patient and family Mode of arrival: EMS Limitations: no limitations History of Present Illness HPI narrative: Patient is 67 years old with history of depression developmental delay coronary disease status post CABG 2 vessels on 01/06/2023 on Plavix and aspirin was recently admitted 10 days ago her mid chest pain again at [facility] and diagnosed as chest wall pain. Comes back here again as noticed right-sided chest pain since yesterday p.m. feeling weak and dizzy prior to arrival EMS noted patient having slightly slow speech patient complaining of weakness mostly on the left side no headache FAST exam was negative Related Data Home Medications Medication Instructions Recorded Confirmed aspirin 81 mg tablet,delayed 81 mg PO DAILY 07/26/20 10/04/22 release clopidogrel 75 mg tablet 75 mg PO DAILY 07/26/20 10/04/22 isosorbide mononitrate 60 mg 60 mg PO DAILY 07/26/20 10/04/22 tablet,extended release 24 hr nitroglycerin 0.4 mg sublingual 0.4 mg sublingual angina 07/26/20 10/04/22 tablet rosuvastatin 40 mg tablet 40 mg PO DAILY 07/26/20 10/04/22 sertraline 100 mg tablet mg PO 07/26/20 10/04/22 Previous Rx's Medication Instructions Recorded bisacodyl 5 mg tablet,delayed 10 mg PO BEDTIME Colon prep 2 days 08/22/21 release (Dulcolax (bisacodyl)) #4 tabs polyethylene glycol 3350 17 17 g PO DAILY 1 day #238 grams 08/22/21 gram/dose oral powder (Miralax) sod picosulf 10 mg-magnes 3.5 160 ml PO DAILY 2 doses #320 mL 09/06/21 gram-citric 12 gram/160 mL oral solution (Clenpiq) cyanocobalamin (vitamin B-12) 1,000 mcg PO DAILY #90 tabs 01/25/22 1,000 mcg tablet loperamide 2 mg capsule 2 mg PO QID PRN for diarrhea #112 07/27/22 caps blood pressure monitor (Blood #1 ea 08/18/22 Pressure Kit) pulse oximeter #1 ea 08/18/22 thermometer #1 ea 08/18/22 pantoprazole 40 mg tablet,delayed 40 mg PO DAILY #90 tabs 12/30/22 release doxycycline hyclate 100 mg tablet 100 mg PO BID #20 tabs 02/02/23 tramadol 50 mg tablet 50 mg PO Q6H PRN pain #20 tabs 02/02/23 Allergies Allergy/AdvReac Type Severity Reaction Status Date / Time influenza virus vaccine, Allergy Unknown NAUSEA & Verified 10/22/22 21:52 specific VOMITING [FLU VACCINE] pneumococcal vaccine Allergy Unknown NAUSEA & Verified 10/22/22 21:52 [PNEUMOCOCCAL VACCINE] VOMITING Review of Systems Review of Systems: Yes all other systems are reviewed and are negative [facility] Past Medical History Medical History Hyperlipidemia Obesity Surgical History (Updated 02/03/23 @ 00:22 by Tiago Lamar MD) History of coronary artery stent placement History of two vessel coronary artery bypass graft Family History Family History Father COPD (chronic obstructive pulmonary disease) Lung cancer Mother Myocardial infarction Family/Other Diabetes Thyroid disease Social History Social History Housing: Apartment Alcohol intake: never Patient Tobacco Use Status: Former Tobacco user Tobacco use type: Cigarette Smoked in Last 30 Days: No e-Cigarette/Vaping Use: Never Used Second Hand Smoke Exposure: No Use of substances other than those prescribed or required for medical reasons: No Advance Directives: No Advance Directives Information Provided: No service: No Current occupational status: disabled Cognitive needs: No Hearing needs: No Vision needs: No Physical Exam Vital Signs: Vital Signs: Last Vital Signs Temp 97.3 F 02/02/23 21:49 Pulse 62 02/02/23 21:49 Resp 14 02/02/23 21:49 BP 100/52 L 02/02/23 21:49 Pulse Ox 97 02/02/23 21:49 O2 Del Method Room Air 02/02/23 21:49 BMI result Body Mass Index 32.0 Appearance: Alert. Oriented X3. No acute distress. Eyes: PERRLA, No Nystagmus ENT: Pharynx normal. Oral Mucosa moist no facial asymmetry Neck: Normal inspection. Neck supple. CVS: Normal heart rate and rhythm. Pulses normal. Respiratory: No respiratory distress. Equal air entry bilateral, no wheezing/rales/rhonchi right upper chest wall tenderness and tenderness at the midline scar of surgery Abdomen: Soft and nontender. Bowel sounds are present, no mass palpable, no CVA tenderness Skin: Skin warm and dry. Normal skin color. Normal skin turgor. Extremities: No lower extremity edema. No calf tenderness Neuro: Oriented X 3. No motor deficit. No sensory deficit.No cerebellar signs , cranial nerves II-XII intact NIH Stroke Scale Internal: Initial- Upon Arrival Level of Consciousness: Alert Level of Consciousness Questions: Answers both questions correctly Level of Consciousness Commands: Performs both tasks correctly Best Gaze: Normal Visual: No visual loss Facial Palsy: Normal Motor Arm (Right): No drift Motor Arm (Left): No drift Motor Leg (Right): No drift Motor Leg (Left): No drift Limb Ataxia: Absent Sensory: Normal Best Language: No aphasia Dysarthia: Normal Extinction and Inattention: No abnormality Score: 0 Medications Administered Discontinued Medications Generic Name Dose Route Start Last Admin Trade Name Freq PRN Reason Stop Dose Admin Doxycycline Monohydrate 100 mg 02/02/23 21:29 02/02/23 21:39 Doxycycline Monohydrate 100 Mg Capsule PO 02/02/23 21:30 100 mg ONCE ONE Administration Morphine Sulfate 4 mg 02/02/23 21:29 02/02/23 21:39 Morphine Sulfate 4 Mg/Ml Cartridge IVPUSH 02/02/23 21:30 4 mg ONCE ONE Administration Protocol Ondansetron HCl 4 mg 02/02/23 21:29 02/02/23 21:40 Ondansetron Hcl 4 Mg/2 Ml Vial IVPUSH 02/02/23 21:30 4 mg ONCE ONE Administration Medical Decision Making Medical Decision Making [facility] Narrative: Patient with right-sided chest wall pain with history of same 10 days ago post CABG came here was feeling weak overall no focal deficit notice when patient arrived NIHHS score was 0 CT head and CTA head and neck negative for any acute. Patient while staying in the ED improved completely no focal deficit noticed per family patient had similar pain often post surgery and just take Tylenol will discharge patient home on tramadol EKG without any acute ischemic changes 2 sets of high sensitive troponin negative for delta change Differential Diagnosis Differential Diagnoses: The differential diagnosis associated with the presentation includes Acute CVA/TIA/musculoskeletal pain/ACS Lab Data MDM Lab Attestation statement: I reviewed the patient's lab results. 02/02/23 20:11 02/02/23 20:11 Labs: Lab Results 02/02/23 02/02/23 02/02/23 Range/Units 19:45 19:46 20:11 WBC 7.5 (4.8-10.8) X10*3/uL RBC 3.77 L (4.60-5.80) X10*6/uL Hgb 10.2 L (14.0-18.0) g/dl Hct 32.9 L (42.0-52.0) % MCV 87.3 (80.0-98.0) fL MCH 27.1 (27.0-33.0) pg MCHC 31.0 (31.0-36.0) g/dl RDW 14.6 (11.0-16.0) % Plt Count 244 (160-400) X10*3/uL MPV 9.3 L (9.4-12.4) fL Immature Gran % (Auto) 0.3 (0.0-0.4) % Neut % (Auto) 59.3 (45-73) % Lymph % (Auto) 25.3 (20-40) % [place] % (Auto) 12.3 H (2-11) % Eos % (Auto) 2.1 (0-4) % Baso % (Auto) 0.7 (0-2) % Lymph # (Auto) 1.9 (1.2-4.9) X10*3/uL [place] # (Auto) 0.9 (0.1-1.2) X10*3/uL Eos # (Auto) 0.2 (0.0-0.4) X10*3/uL Baso # (Auto) 0.1 (0.0-0.2) X10*3/uL Abs Immat Gran (auto) 0.02 (0.00-0.03) X10*3/uL Absolute Neuts (auto) 4.5 (2.0-8.3) x10*3/uL Absolute Nucleated RBC 0.000 (0.0-0.012) X10*3/uL Nucleated RBC % (auto) 0.0 (0.0-0.2) /100WBC PT (10.0-13.1) SEC Whole Blood PT 15.0 H (11.1-13.5) sec INR (0.9-1.1) Whole Blood INR 1.3 H (0.9-1.1) APTT (26.0-36.4) SEC Sodium (135-145) mmol/L Potassium (3.3-5.1) mmol/L Chloride (96-108) mmol/L Carbon Dioxide (22-29) mmol/L Anion Gap (12-20) BUN (9-16) mg/dL Creatinine (0.5-1.4) mg/dL Estim Creat Clear Calc Estimated GFR POC Glucose 118 H (60-115) mg/dL Random Glucose (60-115) mg/dL Calcium (8.4-10.2) mg/dL Magnesium (1.6-2.6) mg/dL Total Creatine Kinase (38-174) U/L Troponin I High Sens (<3.5-35.0) ng/L 02/02/23 02/02/23 02/02/23 Range/Units 20:11 20:11 20:11 WBC (4.8-10.8) X10*3/uL RBC (4.60-5.80) X10*6/uL Hgb (14.0-18.0) g/dl Hct (42.0-52.0) % MCV (80.0-98.0) fL MCH (27.0-33.0) pg MCHC (31.0-36.0) g/dl RDW (11.0-16.0) % Plt Count (160-400) X10*3/uL MPV (9.4-12.4) fL Immature Gran % (Auto) (0.0-0.4) % Neut % (Auto) (45-73) % Lymph % (Auto) (20-40) % [place] % (Auto) (2-11) % Eos % (Auto) (0-4) % Baso % (Auto) (0-2) % Lymph # (Auto) (1.2-4.9) X10*3/uL [place] # (Auto) (0.1-1.2) X10*3/uL Eos # (Auto) (0.0-0.4) X10*3/uL Baso # (Auto) (0.0-0.2) X10*3/uL Abs Immat Gran (auto) (0.00-0.03) X10*3/uL Absolute Neuts (auto) (2.0-8.3) x10*3/uL Absolute Nucleated RBC (0.0-0.012) X10*3/uL Nucleated RBC % (auto) (0.0-0.2) /100WBC PT 12.3 (10.0-13.1) SEC Whole Blood PT (11.1-13.5) sec INR 1.1 (0.9-1.1) Whole Blood INR (0.9-1.1) APTT 30.3 (26.0-36.4) SEC Sodium 136 (135-145) mmol/L Potassium 4.2 (3.3-5.1) mmol/L Chloride 105 (96-108) mmol/L Carbon Dioxide 22 (22-29) mmol/L Anion Gap 13 (12-20) BUN 14 (9-16) mg/dL Creatinine 0.94 (0.5-1.4) mg/dL Estim Creat Clear Calc 101.9 Estimated GFR > 60 POC Glucose (60-115) mg/dL Random Glucose 130 H (60-115) mg/dL Calcium 8.8 (8.4-10.2) mg/dL Magnesium 2.0 (1.6-2.6) mg/dL Total Creatine Kinase 40 (38-174) U/L Troponin I High Sens 4.4 D (<3.5-35.0) ng/L 02/02/23 Range/Units 21:48 WBC (4.8-10.8) X10*3/uL RBC (4.60-5.80) X10*6/uL Hgb (14.0-18.0) g/dl Hct (42.0-52.0) % MCV (80.0-98.0) fL MCH (27.0-33.0) pg MCHC (31.0-36.0) g/dl RDW (11.0-16.0) % Plt Count (160-400) X10*3/uL MPV (9.4-12.4) fL Immature Gran % (Auto) (0.0-0.4) % Neut % (Auto) (45-73) % Lymph % (Auto) (20-40) % [place] % (Auto) (2-11) % Eos % (Auto) (0-4) % Baso % (Auto) (0-2) % Lymph # (Auto) (1.2-4.9) X10*3/uL [place] # (Auto) (0.1-1.2) X10*3/uL Eos # (Auto) (0.0-0.4) X10*3/uL Baso # (Auto) (0.0-0.2) X10*3/uL Abs Immat Gran (auto) (0.00-0.03) X10*3/uL Absolute Neuts (auto) (2.0-8.3) x10*3/uL Absolute Nucleated RBC (0.0-0.012) X10*3/uL Nucleated RBC % (auto) (0.0-0.2) /100WBC PT (10.0-13.1) SEC Whole Blood PT (11.1-13.5) sec INR (0.9-1.1) Whole Blood INR (0.9-1.1) APTT (26.0-36.4) SEC Sodium (135-145) mmol/L Potassium (3.3-5.1) mmol/L Chloride (96-108) mmol/L Carbon Dioxide (22-29) mmol/L Anion Gap (12-20) BUN (9-16) mg/dL Creatinine (0.5-1.4) mg/dL Estim Creat Clear Calc Estimated GFR POC Glucose (60-115) mg/dL Random Glucose (60-115) mg/dL Calcium (8.4-10.2) mg/dL Magnesium (1.6-2.6) mg/dL Total Creatine Kinase (38-174) U/L Troponin I High Sens 5.3 (<3.5-35.0) ng/L Independent Interpretation I performed an independent interpretation of an: EKG Interpretation: Normal sinus rhythm heart rate 62 beats per minute normal intervals normal axis LVH no acute ischemic changes Discharge Plan Discharge Clinical Impression: Chest wall pain, Weakness, Cellulitis Patient Disposition: Home, Self-Care Instructions: Cellulitis (ED), Weakness (ED), Chest Wall Pain (ED) Additional Instructions: Your pain in chest is from the surgery Take pain medication as prescribed There is no evidence of stroke at this time Take antibiotics for cellulitis of the right leg for 10 days and keep your right leg elevated Follow with PCP if any concerns Prescriptions: New doxycycline hyclate 100 mg tablet 100 mg PO BID Qty: 20 0RF tramadol 50 mg tablet 50 mg PO Q6H PRN (Reason: pain) Qty: 20 0RF No Action Clenpiq 10 mg-3.5 gram -12 gram/160 mL solution 160 ml PO DAILY Qty: 320 0RF Rx Instructions: take first dose at 5-9PM evening before colonoscopy; 2nd dose the next day approximately 5 hrs before colonoscopy cyanocobalamin (vitamin B-12) 1,000 mcg tablet 1,000 mcg PO DAILY Qty: 90 8RF loperamide 2 mg capsule 2 mg PO QID PRN (Reason: for diarrhea) Qty: 112 3RF (DME) blood pressure monitor [Blood Pressure Kit] Kit See Rx Instructions .Route Qty: 1 0RF Rx Instructions: As directed (DME) pulse oximeter See Rx Instructions .Route .MEDSUPPLY Qty: 1 0RF Rx Instructions: As directed (DME) thermometer See Rx Instructions .Route .MEDSUPPLY Qty: 1 0RF Rx Instructions: As directed pantoprazole 40 mg tablet,delayed release (DR/EC) 40 mg PO DAILY Qty: 90 8RF rosuvastatin 40 mg tablet 40 mg PO DAILY isosorbide mononitrate 60 mg tablet extended release 24 hr 60 mg PO DAILY clopidogrel 75 mg tablet 75 mg PO DAILY sertraline 100 mg tablet PO aspirin 81 mg tablet,delayed release (DR/EC) 81 mg PO DAILY nitroglycerin 0.4 mg tablet, sublingual 0.4 mg sublingual polyethylene glycol 3350 [Miralax] 17 gram/dose powder 17 g PO DAILY 1 Days Qty: 238 0RF Rx Instructions: Mix Miralax with 64 oz(8 cups) of Crystal light. Take 2 tablets of Dulcolax qt 12 pm. Wait to have your 1st bowel movement, then begin drinking Miralax. Drink a glass of Miralax every 10-15 minutes until you are finished. You will drink at least another 4 cups of clear liquid of your choice over the next 2 hours. Please drink as many clear liquids as possible You may have clear liquids up to four hours before your procedure bisacodyl [Dulcolax (bisacodyl)] 5 mg tablet,delayed release (DR/EC) 10 mg PO BEDTIME 2 Days Qty: 4 0RF Rx Instructions: Take 2 tablets at noon 2 days before colonoscopy. Take 2 tablets at noon 1 day before colonoscopy Interventions: ED Discharge Assessment Last Done: 02/02/23 23:00 Discharge Date/Time: 02/02/23 23:24
== END 2023-02-02 23:24 | disposition home or self-care (01) ==
PROVIDERS: Emergency Provider Internal Medicine
DX: R07.89 Other chest pain (principal); R29.810 Facial weakness; R51.9 Headache, unspecified; L03.211 Cellulitis of face; Z87.891 Personal history of nicotine dependence; Z79.899 Other long term (current) drug therapy
CPT/HCPCS: 36415; 70450; 70496; 70498; 80048; 82550; 82947; 83735; 84484; 85025; 85610; 85730; 93005; 96374; 96375; 99284; 99285; J2270; J2405

== ENCOUNTER 2023-02-08 14:25 | Outpatient (AMB) | payer OTHER, MEDICAID, SELFPAY ==
[2023-02-08 14:30] VITALS: BP 100/78; PULSE 54; O2SAT 96; BMI 32.5
--- NOTE | 2023-02-08 14:30 | MHC.PC.OV ---
Vital Signs 02/08/23 14:30 Height 6 ft 2 in Weight 253 lb BMI 32.5 BP 100/78 Position Sitting Pulse 54 Pulse Source Pulse Oximeter Pulse Oximetry (%) 96 Oxygen Delivery Method Room Air Intake Visit Reasons: [facility]-01/06-Open Heart Surgery [employer] Services Required: No Accompanied by: Self / Same As Patient Allergies influenza virus vaccine, specific [FLU VACCINE] Allergy (Unknown, Verified 02/08/23 14:30) NAUSEA & VOMITING pneumococcal vaccine [PNEUMOCOCCAL VACCINE] Allergy (Unknown, Verified 02/08/23 14:30) NAUSEA & VOMITING Medication List - Last Reconciled 02/08/23 by Isac Littlejohn MD aspirin 81 mg PO DAILY bisacodyl (Dulcolax (bisacodyl)) 10 mg (2 x 5 mg) PO BEDTIME 2 days blood pressure monitor (Blood Pressure Kit) As directed clopidogrel 75 mg PO DAILY cyanocobalamin (vitamin B-12) 1,000 mcg PO DAILY doxycycline hyclate 100 mg PO BID isosorbide mononitrate ER 60 mg PO DAILY loperamide 2 mg PO QID PRN nitroglycerin 0.4 mg sublingual pantoprazole 40 mg PO DAILY polyethylene glycol 3350 (Miralax) 17 grams PO DAILY 1 day [pulse oximeter As directed] rosuvastatin 40 mg PO DAILY sertraline mg PO sod picosulf-mag ox-citric ac 10 mg-3.5 gram- 12 gram/160 mL (Clenpiq) 160 mL PO DAILY 2 doses [thermometer As directed] tramadol 50 mg PO Q8H PRN Tobacco use date assessed: 02/08/23 Fall risk assessment: 2 + Falls in past year Last assessed Fall Risk: 02/08/23 Dental Screening Dental Screen Date: 02/08/23 Did you have a dental visit in the last 12 months?: No Did you have a dental problem in the last 6 months where you did not have access to dental care?: No Was dental information given to patient?: No HPI [facility]-01/06-Open Heart Surgery HPI Details had an [place] and double vessel CABG; starting rehab; 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 [facility] Medical History (Updated 02/08/23 @ 15:01 by Isac Littlejohn MD) Hyperlipidemia Obesity Surgical History History of coronary artery stent placement History of two vessel coronary artery bypass graft Family History Father COPD (chronic obstructive pulmonary disease) Lung cancer Mother Myocardial infarction Family/Other Diabetes Thyroid disease Social History Housing: Apartment Alcohol intake: never Patient Tobacco Use Status: Former Tobacco user Tobacco use type: Cigarette e-Cigarette/Vaping Use: Never Used Second Hand Smoke Exposure: No service: No Current occupational status: disabled Cognitive needs: No Hearing needs: No Vision needs: No Questionnaire PHQ-9 Over the last 2 weeks, how often have you been bothered by any of the following problems? 1. Little interest or pleasure in doing things: not at all 2. Feeling down, depressed, or hopeless: not at all 3. Trouble falling or staying asleep, or sleeping too much: not at all 4. Feeling tired or having little energy: not at all 5. Poor appetite or overeating: not at all 6. Feeling bad about yourself - or that you are a failure or have let yourself or your family down: not at all 7. Trouble concentrating on things, such as reading the newspaper or watching television: not at all 8. Moving or speaking so slowly that other people could have noticed. Or the opposite - being so fidgety or restless that you have been moving around a lot more than usual: not at all 9. Thoughts that you would be better off or of hurting yourself in some way: not at all Total score: 0 Depression Screening Interpretation: Negative Source: Developed by Drs. Asif Ward, Honey Rodriguez, Baljeet Reynolds and colleagues, with an educational ankita from [employer]. Thrive Questionnaire Date Thrive assessed: 02/08/23 I am a: Patient What is your living situation today?: I have a steady place to live Within the past 12 months, did the food you bought not last and you didn't have the money to get more?: Never true Within the past 12 months, did you worry whether your food would run out before you got money to buy more?: Never true Do you have trouble paying for medicines?: No Do you have trouble getting transportation to medical appointments?: No Do you have trouble paying your heating and electricity bill?: No Do you have trouble taking care of your child, family member or friend?: No Do you have trouble with day-to-day activities such as bathing, preparing meals, shopping, managing finances, etc.?: No Are you currently unemployed and looking for a job?: No Are you interested in more education?: No Please select the resources that you would like help with: None Currently or been in a relationship where the following occur: no concerns reported AUDIT C Alcohol Use Questionnaire (AUDIT-C) 1. How often do you have a drink containing alcohol?: Never 3. How often do you have six or more drinks on one occasion?: Never Total Score: 0 Score Reviewed/Action Taken: No NOMAN-7 AMB Questionnaire NOMAN-7 Date NOMAN - 7 assessed: 02/08/23 Feeling nervous, anxious, or on edge: 0 = Not at all Not being able to stop or control worryin = Not at all Worrying too much about different things: 0 = Not at all Trouble relaxin = Not at all Being so restless that it is hard to sit still: 0 = Not at all Becoming easily annoyed or irritable: 0 = Not at all Feeling afraid as if something awful might happen: 0 = Not at all Total NOMAN-7 score (0-4 normal; 5-9 mild; 10-14 moderate; 15-21 severe): 0 Source: Developed by Drs. Asif Ward, Honey Rodriguez, Baljeet Reynolds and colleagues, with an educational ankita from [employer]. Review of Systems Const Denies chills, Denies headache(s) and Denies weight loss ENT Denies headache(s) Card Denies chest pain, Denies syncope, Denies irregular heart rhythm and Denies dyspnea Resp Denies chest congestion, Denies cough and Denies dyspnea GI Denies abdominal pain, Denies change in stool character, Denies nausea and Denies vomiting Musc Denies deformity and Denies joint swelling Neuro Denies syncope and Denies headache(s) Physical exam (Primary Care) Vital Signs: Last Vital Signs Pulse 54 02/08/23 14:30 BP 100/78 02/08/23 14:30 Pulse Ox 96 02/08/23 14:30 Oxygen Delivery Method Room Air 02/08/23 14:30 BMI result Body Mass Index 32.5 Tobacco/Smoking Status: Tobacco use Status Tobacco use date assessed 02/08/23 02/08/23 14:38 Patient Tobacco Use Status Former Tobacco user 02/08/23 14:38 Tobacco use type Cigarette 02/08/23 14:38 e-Cigarette/Vaping Use Never Used 02/08/23 14:38 PHQ-9: PHQ-9 Score PHQ-9: Total score 0 02/08/23 14:38 Depression Screening Interpretation: Negative Thrive Assessment: Date of Thrive Assessment Date Thrive assessed 02/08/23 02/08/23 14:38 Currently or been in a relationship where the following occur: no concerns reported Const General: cooperative, comfortable and no acute distress Resp Effort & Inspection: normal respiratory effort Auscultation: clear to auscultation bilaterally Percussion: percussion normal Cardio Jugular venous distension: no JVD Rate: regular rate Rhythm: regular rhythm GI Inspection: Yes normal to inspection Assessment and Plan Assessment & Plan (1) CAD (coronary artery disease): Code(s): I25.10 - Atherosclerotic heart disease of [place] coronary artery without angina pectoris Plan: per cardiology (2) S/P CABG (coronary artery bypass graft): Code(s): Z95.1 - Presence of aortocoronary bypass graft Plan: percardiology Medications: New tramadol 50 mg PO Q8H PRN 20 tabs 0RF pain Coding Level of Care Code Est Pt Level 4 (19348) Diagnoses CAD (coronary artery disease) I25.10 S/P CABG (coronary artery bypass graft) Z95.1
== END 2023-02-08 14:50 | disposition home or self-care (01) ==
PROVIDERS: PCP Internal Medicine; Visit Provider Internal Medicine
DX: I25.10 Atherosclerotic heart disease of native coronary artery without angina pectoris (principal); Z95.1 Presence of aortocoronary bypass graft
CPT/HCPCS: 99214

== ENCOUNTER 2023-05-24 13:34 | Outpatient (AMB) | payer OTHER, MEDICAID, SELFPAY ==
[2023-05-24 13:44] VITALS: BP 110/52; PULSE 77; O2SAT 98; BMI 33.1
--- NOTE | 2023-05-24 13:44 | A.OFFPC_ITS ---
Vital Signs 05/24/23 13:44 Height 6 ft 2 in Weight 258 lb BMI 33.1 BP 110/52 L Blood Pressure Location Lt brachial Position Sitting Pulse 77 Pulse Source Pulse Oximeter Pulse Oximetry (%) 98 Oxygen Delivery Method Room Air Intake Visit Reasons: 3M Follow up Allergies influenza virus vaccine, specific [FLU VACCINE] Allergy (Unknown, Verified 05/24/23 13:44) NAUSEA & VOMITING pneumococcal vaccine [PNEUMOCOCCAL VACCINE] Allergy (Unknown, Verified 05/24/23 13:44) NAUSEA & VOMITING Medication List - Last Reconciled 05/24/23 by Isac Littlejohn MD aspirin 81 mg PO DAILY bisacodyl (Dulcolax (bisacodyl)) 10 mg (2 x 5 mg) PO BEDTIME 2 days blood pressure monitor (Blood Pressure Kit) As directed clopidogrel 75 mg PO DAILY cyanocobalamin (vitamin B-12) 1,000 mcg PO DAILY doxycycline hyclate 100 mg PO BID isosorbide mononitrate ER 60 mg PO DAILY loperamide 2 mg PO QID PRN nitroglycerin 0.4 mg sublingual pantoprazole 40 mg PO DAILY polyethylene glycol 3350 (Miralax) 17 grams PO DAILY 1 day [pulse oximeter As directed] rosuvastatin 40 mg PO DAILY sertraline mg PO sod picosulf-mag ox-citric ac 10 mg-3.5 gram- 12 gram/160 mL (Clenpiq) 160 mL PO DAILY 2 doses [thermometer As directed] tramadol 50 mg PO Q8H PRN Tobacco use date assessed: 02/08/23 Fall risk assessment: No Falls in past year Last assessed Fall Risk: 05/24/23 Dental Screening Dental Screen Date: 05/24/23 Did you have a dental visit in the last 12 months?: No Did you have a dental problem in the last 6 months where you did not have access to dental care?: No Was dental information given to patient?: Patient has dentist HPI 3M Follow up HPI Details hyperlipidemia gerd and depression on rx; doing well; compliant [facility] Medical History Obesity Hyperlipidemia Surgical History History of two vessel coronary artery bypass graft History of coronary artery stent placement Family History Father COPD (chronic obstructive pulmonary disease) Lung cancer Mother Myocardial infarction Family/Other Diabetes Thyroid disease Social History Housing: Apartment Alcohol intake: never Patient Tobacco Use Status: Former Tobacco user Tobacco use type: Cigarette e-Cigarette/Vaping Use: Never Used Second Hand Smoke Exposure: No service: No Current occupational status: disabled Cognitive needs: No Hearing needs: No Vision needs: No Questionnaire PHQ-9 Over the last 2 weeks, how often have you been bothered by any of the following problems? 1. Little interest or pleasure in doing things: not at all 2. Feeling down, depressed, or hopeless: not at all 3. Trouble falling or staying asleep, or sleeping too much: not at all 4. Feeling tired or having little energy: not at all 5. Poor appetite or overeating: not at all 6. Feeling bad about yourself - or that you are a failure or have let yourself or your family down: not at all 7. Trouble concentrating on things, such as reading the newspaper or watching television: not at all 8. Moving or speaking so slowly that other people could have noticed. Or the opposite - being so fidgety or restless that you have been moving around a lot more than usual: not at all 9. Thoughts that you would be better off or of hurting yourself in some way: not at all Total score: 0 Depression Screening Interpretation: Negative Depression Screening Done: Yes Source: Developed by Drs. Asif Ward, Baljeet Lopez and colleagues, with an educational ankita from [employer]. Thrive Questionnaire Date Thrive assessed: 02/08/23 AUDIT C Alcohol Use Questionnaire (AUDIT-C) 1. How often do you have a drink containing alcohol?: Never 3. How often do you have six or more drinks on one occasion?: Never Total Score: 0 Score Reviewed/Action Taken: No NOMAN-7 AMB Questionnaire NOMAN-7 Date NOMAN - 7 assessed: 02/08/23 Source: Developed by Honey Melendez Kurt Kroenke and colleagues, with an educational ankita from [employer]. Review of Systems Const Denies chills, Denies headache(s) and Denies weight loss ENT Denies headache(s) Card Denies chest pain, Denies syncope, Denies irregular heart rhythm and Denies dyspnea Resp Denies chest congestion, Denies cough and Denies dyspnea GI Denies abdominal pain, Denies change in stool character, Denies nausea and Denies vomiting Musc Denies deformity and Denies joint swelling Neuro Denies syncope and Denies headache(s) Physical exam (Primary Care) Vital Signs: Last Vital Signs Pulse 77 05/24/23 13:44 BP 110/52 L 05/24/23 13:44 Pulse Ox 98 05/24/23 13:44 Oxygen Delivery Method Room Air 05/24/23 13:44 BMI result Body Mass Index 33.1 Tobacco/Smoking Status: Tobacco use Status Tobacco use date assessed 02/08/23 05/24/23 13:45 Patient Tobacco Use Status Former Tobacco user 05/24/23 13:45 Tobacco use type Cigarette 05/24/23 13:45 e-Cigarette/Vaping Use Never Used 05/24/23 13:45 PHQ-9: PHQ-9 Score PHQ-9: Total score 0 05/24/23 13:45 Depression Screening Interpretation: Negative Thrive Assessment: Date of Thrive Assessment Date Thrive assessed 02/08/23 05/24/23 13:45 Const General: cooperative, comfortable, no acute distress and alert Neck Neck: Yes no lymphadenopathy Thyroid: Thyroid normal Resp Effort & Inspection: normal respiratory effort Auscultation: clear to auscultation bilaterally Percussion: percussion normal Cardio Jugular venous distension: no JVD Palpation: normal PMI Rate: regular rate Rhythm: regular rhythm Heart sounds: S1 normal heart sound present and S2 normal heart sound present GI Inspection: Yes normal to inspection Palpation (GI): No hepatosplenomegaly present Skin General skin exam: no rashes or lesions noted Extrem General: Yes no clubbing, cyanosis or edema Assessment and Plan Assessment & Plan (1) GERD (gastroesophageal reflux disease): Code(s): K21.9 - Gastro-esophageal reflux disease without esophagitis Plan: stable; same rx (2) Depression: Code(s): F32.A - Depression, unspecified Plan: stable; same rx (3) Hyperlipidemia: Code(s): E78.5 - Hyperlipidemia, unspecified Plan: stable; due for labs Orders: Orders Complete Blood Count Auto Diff Today D64.9 - Anemia, unspecified Comprehensive [place]. Panel Fast Today N28.9 - Disorder of kidney and ureter, unspecified Lipid Panel Today E78.5 - Hyperlipidemia, unspecified Thyroid Stimulating Hormone Today E03.9 - Hypothyroidism, unspecified Coding Level of Care Code Est Pt Level 4 (21592) Diagnoses GERD (gastroesophageal reflux disease) K21.9 Depression F32.A Hyperlipidemia E78.5
== END 2023-05-24 13:55 | disposition home or self-care (01) ==
PROVIDERS: PCP Internal Medicine; Visit Provider Internal Medicine
DX: K21.9 Gastro-esophageal reflux disease without esophagitis (principal); F32.A Depression, unspecified; E78.5 Hyperlipidemia, unspecified
CPT/HCPCS: 99214

== ENCOUNTER 2023-08-01 21:28 | Emergency (ER) | payer OTHER, MEDICAID, SELFPAY ==
--- NOTE | 2023-08-01 21:32 | ED.CHESTPAIN ---
HPI - Chest Pain General Chief Complaint: Chest Pain Stated Complaint: cp Time Seen by Provider: 08/01/23 21:32 Source: patient Mode of arrival: EMS Limitations: no limitations History of Present Illness HPI narrative: Patient 67 years old status post coronary disease STEMI status post stents hypertension peripheral vascular disease seizure disorder depression anxiety depression and developmental delay recently had CABG 2 vessels in 01/19 seen for the chest pain on left side started earlier today been there all day off and on just prior to arrival complaining of increased pain pain is reproducible on palpation localized to the left side of the chest, feels like pressure with slight shortness of breath patient took 1 nitro without much relief and was given aspirin by the EMS Related Data Home Medications Medication Instructions Recorded Confirmed aspirin 81 mg tablet,delayed 81 mg PO DAILY 07/26/20 05/24/23 release clopidogrel 75 mg tablet 75 mg PO DAILY 07/26/20 05/24/23 isosorbide mononitrate 60 mg 60 mg PO DAILY 07/26/20 05/24/23 tablet,extended release 24 hr nitroglycerin 0.4 mg sublingual 0.4 mg sublingual angina 07/26/20 05/24/23 tablet rosuvastatin 40 mg tablet 40 mg PO DAILY 07/26/20 05/24/23 sertraline 100 mg tablet mg PO 07/26/20 05/24/23 Previous Rx's Medication Instructions Recorded bisacodyl 5 mg tablet,delayed 10 mg (2 x 5 mg) PO BEDTIME Colon 08/22/21 release (Dulcolax (bisacodyl)) prep 2 days #4 tabs polyethylene glycol 3350 17 17 g PO DAILY 1 day #238 grams 08/22/21 gram/dose oral powder (Miralax) sod picosulf 10 mg-magnes 3.5 160 ml PO DAILY 2 doses #320 mL 09/06/21 gram-citric 12 gram/160 mL oral solution (Clenpiq) loperamide 2 mg capsule 2 mg PO QID PRN for diarrhea #112 07/27/22 caps blood pressure monitor (Blood #1 ea 08/18/22 Pressure Kit) pulse oximeter #1 ea 08/18/22 thermometer #1 ea 08/18/22 pantoprazole 40 mg tablet,delayed 40 mg PO DAILY #90 tabs 12/30/22 release doxycycline hyclate 100 mg tablet 100 mg PO BID #20 tabs 02/02/23 tramadol 50 mg tablet 50 mg PO Q8H PRN pain #20 tabs 02/08/23 cyanocobalamin (vitamin B-12) 1,000 mcg PO DAILY #90 tabs 02/17/23 1,000 mcg tablet Allergies Allergy/AdvReac Type Severity Reaction Status Date / Time influenza virus vaccine, Allergy Unknown NAUSEA & Verified 05/24/23 13:44 specific VOMITING [FLU VACCINE] pneumococcal vaccine Allergy Unknown NAUSEA & Verified 05/24/23 13:44 [PNEUMOCOCCAL VACCINE] VOMITING Review of Systems Review of Systems: Yes all other systems are reviewed and are negative PMFSH Past Medical History Onset Date is defined in the Problem List Problems that require an onset date and time if occurred within 24 hrs of arrival to the ED Aortic Dissection and Rupture; Neurologic impairment; Cardiopulmonary Arrest; Endotracheal Intubation; Insertion or Replacement of Mechanical Circulatory Assist Device Medical History Obesity Hyperlipidemia Surgical History History of two vessel coronary artery bypass graft History of coronary artery stent placement Family History Family History Father COPD (chronic obstructive pulmonary disease) Lung cancer Mother Myocardial infarction Family/Other Diabetes Thyroid disease Social History Social History Housing: Apartment Alcohol intake: never Patient Tobacco Use Status: Former Tobacco user Tobacco use type: Cigarette Smoked in Last 30 Days: No e-Cigarette/Vaping Use: Never Used Second Hand Smoke Exposure: No Any prior treatment program specific to substance use: No Advance Directives: Yes Advance Directives Information Provided: No Advance Directives on File: No service: No Current occupational status: disabled Cognitive needs: No Hearing needs: No Vision needs: No Physical Exam Vital Signs: Vital Signs: Last Vital Signs Temp 98.0 F 08/02/23 00:01 Pulse 51 08/02/23 01:03 Resp 12 08/02/23 01:03 BP 118/54 L 08/02/23 01:03 Pulse Ox 97 08/02/23 01:03 O2 Del Method Room Air 08/02/23 01:03 BMI result Body Mass Index 34.4 Appearance: Alert. Oriented X3. No acute distress. Eyes: No pallor or icterus ENT: Pharynx normal. Oral Mucosa moist Neck: Normal inspection. Neck supple. CVS: Normal heart rate and rhythm. Pulses normal. No murmur or rub left chest wall tenderness Respiratory: No respiratory distress. Equal air entry bilateral, no wheezing/rales/rhonchi Abdomen: Soft and nontender. Bowel sounds are present, no mass palpable, no CVA tenderness Skin: Skin warm and dry. Normal skin color. Normal skin turgor. Extremities: No lower extremity edema. No calf tenderness Neuro: Oriented X 3. No motor deficit. No sensory deficit.No cerebellar signs , cranial nerves II-XII intact Medications Administered Discontinued Medications Generic Name Dose Route Start Last Admin Trade Name Freq PRN Reason Stop Dose Admin Morphine Sulfate 2 mg 08/01/23 21:57 08/01/23 22:09 Morphine Sulfate 4 Mg/Ml Cartridge IVPUSH 08/01/23 21:58 2 mg ONCE ONE Administration Protocol Nitroglycerin 0.5 inch 08/01/23 21:57 08/01/23 22:09 Nitroglycerin 2 % Oint 1 Gm Packet TRANSDERMA 08/01/23 21:58 0.5 inch ONCE ONE Administration Medical Decision Making Medical Decision Making [facility] Narrative: Patient atypical chest pain reproducible 2 sets of high sensitive troponin negative no acute ischemic changes in EKG resting in the ED without any significant distress discharge patient home advised to follow with PCP Differential Diagnosis Differential Diagnoses: The differential diagnosis associated with the presentation includes ACS/chest wall pain Admission/Observation Consideration of admission/observation: Escalation of care including admission/observation considered Lab Data [facility] Lab Attestation statement: I reviewed the patient's lab results. 08/01/23 21:55 08/01/23 21:55 Labs: Lab Results 08/01/23 08/02/23 Range/Units 21:55 00:07 WBC 6.6 (4.8-10.8) X10*3/uL RBC 4.17 L (4.60-5.80) X10*6/uL Hgb 12.2 L (14.0-18.0) g/dl Hct 35.7 L (42.0-52.0) % MCV 85.6 (80.0-98.0) fL MCH 29.3 (27.0-33.0) pg MCHC 34.2 (31.0-36.0) g/dl RDW 13.0 (11.0-16.0) % Plt Count 213 (160-400) X10*3/uL MPV 9.1 L (9.4-12.4) fL Immature Gran % (Auto) 0.2 (0.0-0.4) % Neut % (Auto) 47.4 (45-73) % Lymph % (Auto) 36.6 (20-40) % [place] % (Auto) 12.7 H (2-11) % Eos % (Auto) 2.3 (0-4) % Baso % (Auto) 0.8 (0-2) % Lymph # (Auto) 2.4 (1.2-4.9) X10*3/uL [place] # (Auto) 0.8 (0.1-1.2) X10*3/uL Eos # (Auto) 0.2 (0.0-0.4) X10*3/uL Baso # (Auto) 0.1 (0.0-0.2) X10*3/uL Abs Immat Gran (auto) 0.01 (0.00-0.03) X10*3/uL Absolute Neuts (auto) 3.1 (2.0-8.3) x10*3/uL Absolute Nucleated RBC 0.000 (0.0-0.012) X10*3/uL Nucleated RBC % (auto) 0.0 (0.0-0.2) /100WBC APTT 31.0 (26.0-36.4) SEC Sodium 139 (135-145) mmol/L Potassium 4.0 (3.3-5.1) mmol/L Chloride 105 (96-108) mmol/L Carbon Dioxide 27 (22-29) mmol/L Anion Gap 11 L (12-20) BUN 17 H (9-16) mg/dL Creatinine 1.17 (0.5-1.4) mg/dL Estim Creat Clear Calc 84.9 Estimated GFR > 60 Random Glucose 94 (60-115) mg/dL Calcium 8.8 (8.4-10.2) mg/dL Total Bilirubin 0.3 (0.0-1.0) mg/dL AST 14 (5-37) U/L ALT 10 (0-40) U/L Alkaline Phosphatase 89 (39-117) U/L Troponin I High Sens 3.1 < 2.7 (<3.5-35.0) ng/L Total Protein 6.8 (6.5-8.0) g/dL Albumin 3.9 (3.5-5.0) g/dL Independent Interpretation I performed an independent interpretation of an: EKG Interpretation: Sinus bradycardia with heart rate 47 beats per min, LVH, left axis deviation no acute ST wave changes no acute ischemic Discharge Plan Discharge Clinical Impression: Chest pain Patient Disposition: Home, Self-Care Instructions: Chest Pain (ED) Additional Instructions: Continue taking medication as prescribed Follow-up with cardiology/PCP Prescriptions: No Action Clenpiq 10 mg-3.5 gram -12 gram/160 mL solution 160 ml PO DAILY Qty: 320 0RF Rx Instructions: take first dose at 5-9PM evening before colonoscopy; 2nd dose the next day approximately 5 hrs before colonoscopy loperamide 2 mg capsule 2 mg PO QID PRN (Reason: for diarrhea) Qty: 112 3RF (DME) blood pressure monitor [Blood Pressure Kit] Kit See Rx Instructions .Route Qty: 1 0RF Rx Instructions: As directed (DME) pulse oximeter See Rx Instructions .Route .MEDSUPPLY Qty: 1 0RF Rx Instructions: As directed (DME) thermometer See Rx Instructions .Route .MEDSUPPLY Qty: 1 0RF Rx Instructions: As directed pantoprazole 40 mg tablet,delayed release (DR/EC) 40 mg PO DAILY Qty: 90 8RF cyanocobalamin (vitamin B-12) 1,000 mcg tablet 1,000 mcg PO DAILY Qty: 90 8RF doxycycline hyclate 100 mg tablet 100 mg PO BID Qty: 20 0RF rosuvastatin 40 mg tablet 40 mg PO DAILY isosorbide mononitrate 60 mg tablet extended release 24 hr 60 mg PO DAILY clopidogrel 75 mg tablet 75 mg PO DAILY sertraline 100 mg tablet PO aspirin 81 mg tablet,delayed release (DR/EC) 81 mg PO DAILY nitroglycerin 0.4 mg tablet, sublingual 0.4 mg sublingual tramadol 50 mg tablet 50 mg PO Q8H PRN (Reason: pain) Qty: 20 0RF polyethylene glycol 3350 [Miralax] 17 gram/dose powder 17 g PO DAILY 1 Days Qty: 238 0RF Rx Instructions: Mix Miralax with 64 oz(8 cups) of Crystal light. Take 2 tablets of Dulcolax qt 12 pm. Wait to have your 1st bowel movement, then begin drinking Miralax. Drink a glass of Miralax every 10-15 minutes until you are finished. You will drink at least another 4 cups of clear liquid of your choice over the next 2 hours. Please drink as many clear liquids as possible You may have clear liquids up to four hours before your procedure bisacodyl [Dulcolax (bisacodyl)] 5 mg tablet,delayed release (DR/EC) 10 mg PO BEDTIME 2 Days Qty: 4 0RF Rx Instructions: Take 2 tablets at noon 2 days before colonoscopy. Take 2 tablets at noon 1 day before colonoscopy Interventions: ED Discharge Assessment Last Done: 08/02/23 01:15 Discharge Date/Time: 08/02/23 01:28
[2023-08-01 21:35] VITALS: BP 123/55; BP 150/84; PULSE 50; PULSE 52; RESP 22; TEMP 36.4; O2SAT 96; BMI 34.4
--- NOTE | 2023-08-01 22:00 | PC.NURSE ---
this rn assumed care of pt from ems. pt a+O pt placed on quality assurance monitor final iv placed on quality assurance monitor final 18 g iv placed blood work obtained and sent down to lab. dr clark to bedside
[2023-08-01 22:48] VITALS: BP 121/65; PULSE 49; RESP 12; O2SAT 96
[2023-08-02 00:01] VITALS: BP 108/57; PULSE 49; RESP 16; TEMP 36.7; O2SAT 96
[2023-08-02 01:03] VITALS: BP 118/54; PULSE 51; RESP 12; O2SAT 97
--- NOTE | 2023-08-02 01:13 | PC.NURSE ---
iv removed at time of discharge. pt a+o x 4. pt states sister unable to pick pt up until morning. this rn made dr clark and pharmacist in charge aware of this pt states feels comfortable to wait in waiting room. pt ambulatory pt provided with discharge packet pt verbalized understanding of discharge plan
== END 2023-08-02 01:28 | disposition home or self-care (01) ==
PROVIDERS: Emergency Provider Internal Medicine; PCP Internal Medicine
DX: R07.9 Chest pain, unspecified (principal); I73.9 Peripheral vascular disease, unspecified; G40.909 Epilepsy, unspecified, not intractable, without status epilepticus; Z95.1 Presence of aortocoronary bypass graft
CPT/HCPCS: 36415; 80053; 84484; 85025; 85730; 93005; 96374; 99284; 99285; J2270

== ENCOUNTER → 2023-08-01 21:32 | Outpatient (BNV) | payer OTHER, MEDICAID, SELFPAY | PROVIDERS: Emergency Provider Internal Medicine; PCP Internal Medicine; Visit Provider Internal Medicine Cardiovascular Disease | DX: R00.1 Bradycardia, unspecified (principal); I44.4 Left anterior fascicular block | CPT/HCPCS: 93010 ==

== ENCOUNTER 2023-08-22 13:34 | Outpatient (REF) | payer OTHER, SELFPAY | END 2023-08-22 13:35 | disposition home or self-care (01) | LOC: HO.LAB 13:34 | PROVIDERS: PCP Internal Medicine; Visit Provider Internal Medicine | DX: Z13.89 Encounter for screening for other disorder (principal) ==

== ENCOUNTER 2023-08-22 14:09 | Outpatient (AMB) | payer OTHER, MEDICAID, SELFPAY ==
--- NOTE | 2023-08-22 14:15 | AM.OFFVISNUR ---
Intake Intake Visit Reasons: Tb plant Allergies influenza virus vaccine, specific [FLU VACCINE] Allergy (Unknown, Verified 05/24/23 13:44) NAUSEA & VOMITING pneumococcal vaccine [PNEUMOCOCCAL VACCINE] Allergy (Unknown, Verified 05/24/23 13:44) NAUSEA & VOMITING Office Meds tuberculin PPD 5 tub. 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
== END 2023-08-22 14:22 | disposition home or self-care (01) ==
PROVIDERS: PCP Internal Medicine; Visit Provider Internal Medicine
DX: Z11.1 Encounter for screening for respiratory tuberculosis (principal)
CPT/HCPCS: 86580

== ENCOUNTER 2023-08-24 14:33 | Outpatient (REF) | payer OTHER, SELFPAY ==
--- NOTE | ~2023-08-24 | XR_ITS ---
EXAMINATION: XR CHEST CLINICAL INFORMATION: Nonspecific reaction to tuberculin skin test. COMPARISON: None available. TECHNIQUE: 2 views of the chest were obtained. FINDINGS: The lungs are well-expanded and clear. The heart size and pulmonary vascularity is normal. There are median sternotomy sutures from previous intervention. No gross bony abnormality XR/XR chest 2V IMPRESSION: Unremarkable chest examination.
== END 2023-08-24 14:34 | disposition home or self-care (01) ==
LOC: HO.XRAY 14:33
PROVIDERS: PCP Internal Medicine; Visit Provider Internal Medicine
DX: R76.11 Nonspecific reaction to tuberculin skin test without active tuberculosis (principal)
CPT/HCPCS: 71046

== ENCOUNTER 2023-08-24 20:40 | Emergency (ER) | payer OTHER, SELFPAY ==
--- NOTE | 2023-08-24 | ECG_ITS ---
Test Reason : CHEST PAIN Blood Pressure : / mmHG Vent. Rate : 053 BPM Atrial Rate : 053 BPM P-R Int : 192 ms QRS Dur : 106 ms QT Int : 464 ms P-R-T Axes : 045 -32 014 degrees QTc Int : 435 ms Sinus bradycardia Left axis deviation Minimal voltage criteria for LVH, may be normal variant ( R in aVL ) Inferior infarct , age undetermined Abnormal ECG When compared with ECG of 01-AUG-2023 21:35, No significant change was found Referred By: Generic ED Physician Electronically Signed By:Sravan Rizzo
[2023-08-24 21:00] VITALS: BP 118/68; PULSE 55; O2SAT 98; BMI 21.5
[2023-08-24 21:08] VITALS: BP 134/59; PULSE 59; RESP 20; TEMP 36.9; O2SAT 97
--- NOTE | 2023-08-24 21:17 | ED.CHESTPAIN ---
HPI - Chest Pain General Chief Complaint: Chest Pain Stated Complaint: PAIN WHEN COUGHING 03/08, +TB, +THINNERS Time Seen by Provider: 08/24/23 21:17 Source: patient Mode of arrival: EMS Limitations: no limitations History of Present Illness HPI narrative: Patient is 67 years old with history of hypertension obesity dyslipidemia non ST-elevation CA status post stents placed and CABG 2 vessels in 12/2022 been here multiple times for chest pain. Patient and TB test placed 2 days ago on the left forearm and today it was read positive , seems likeit was injected on a vein which seems to be ecchymotic. Patient never had positive TB test in the past. Patient has been coughing for long time with mucoid phlegm previous chest x-ray CT chest were negative today also she had a chest x-ray which was negative patient complaining of mid chest pain at the site of the scar of CABG when he coughs Related Data Home Medications Medication Instructions Recorded Confirmed aspirin 81 mg tablet,delayed 81 mg PO DAILY 07/26/20 05/24/23 release clopidogrel 75 mg tablet 75 mg PO DAILY 07/26/20 05/24/23 isosorbide mononitrate 60 mg 60 mg PO DAILY 07/26/20 05/24/23 tablet,extended release 24 hr nitroglycerin 0.4 mg sublingual 0.4 mg sublingual angina 07/26/20 05/24/23 tablet rosuvastatin 40 mg tablet 40 mg PO DAILY 07/26/20 05/24/23 sertraline 100 mg tablet mg PO 07/26/20 05/24/23 Previous Rx's Medication Instructions Recorded bisacodyl 5 mg tablet,delayed 10 mg (2 x 5 mg) PO BEDTIME Colon 08/22/21 release (Dulcolax (bisacodyl)) prep 2 days #4 tabs polyethylene glycol 3350 17 17 g PO DAILY 1 day #238 grams 08/22/21 gram/dose oral powder (Miralax) sod picosulf 10 mg-magnes 3.5 160 ml PO DAILY 2 doses #320 mL 09/06/21 gram-citric 12 gram/160 mL oral solution (Clenpiq) blood pressure monitor (Blood #1 ea 08/18/22 Pressure Kit) pulse oximeter #1 ea 08/18/22 thermometer #1 ea 08/18/22 pantoprazole 40 mg tablet,delayed 40 mg PO DAILY #90 tabs 12/30/22 release doxycycline hyclate 100 mg tablet 100 mg PO BID #20 tabs 02/02/23 tramadol 50 mg tablet 50 mg PO Q8H PRN pain #20 tabs 02/08/23 cyanocobalamin (vitamin B-12) 1,000 mcg PO DAILY #90 tabs 02/17/23 1,000 mcg tablet loperamide 2 mg capsule 2 mg PO QID PRN for diarrhea #112 08/08/23 caps Allergies Allergy/AdvReac Type Severity Reaction Status Date / Time influenza virus vaccine, Allergy Unknown NAUSEA & Verified 05/24/23 13:44 specific VOMITING [FLU VACCINE] pneumococcal vaccine Allergy Unknown NAUSEA & Verified 05/24/23 13:44 [PNEUMOCOCCAL VACCINE] VOMITING Review of Systems Review of Systems: Yes all other systems are reviewed and are negative PMFSH Past Medical History Medical History Obesity Hyperlipidemia Surgical History History of two vessel coronary artery bypass graft History of coronary artery stent placement Family History Family History Father COPD (chronic obstructive pulmonary disease) Lung cancer Mother Myocardial infarction Family/Other Diabetes Thyroid disease Social History Social History Housing: Apartment Alcohol intake: never Patient Tobacco Use Status: Former Tobacco user Tobacco use type: Cigarette e-Cigarette/Vaping Use: Never Used Second Hand Smoke Exposure: No Advance Directives: Yes Advance Directives Information Provided: No Advance Directives on File: No service: No Current occupational status: disabled Cognitive needs: No Hearing needs: No Vision needs: No Physical Exam Vital Signs: Vital Signs: Last Vital Signs Temp 98.4 F 08/24/23 21:08 Pulse 59 08/24/23 21:08 Resp 20 08/24/23 21:08 BP 134/59 L 08/24/23 21:08 Pulse Ox 97 08/24/23 21:08 O2 Del Method Room Air 08/24/23 21:08 BMI result Body Mass Index 21.5 Appearance: Alert. Oriented X3. No acute distress. Eyes: PERRLA, No Nystagmus ENT: Pharynx normal. Oral Mucosa moist Neck: Normal inspection. Neck supple. CVS: Normal heart rate and rhythm. Pulses normal. Respiratory: No respiratory distress. Equal air entry bilateral, no wheezing/rales/rhonchi Abdomen: Soft and nontender. Bowel sounds are present, no mass palpable, no CVA tenderness Skin: Skin warm and dry. Normal skin color. Normal skin turgor. Extremities: No lower extremity edema. No calf tenderness site of TB test was seen which is ecchymotic Neuro: Oriented X 3. No motor deficit. Medical Decision Making Medical Decision Making [facility] Narrative: Patient with false positive test which chest x-ray with no infiltrate labs are stable patient advised to follow-up PCP may need blood test T spot test if indicated Lab Data MDM Lab Attestation statement: I reviewed the patient's lab results. 08/24/23 21:16 08/24/23 21:16 Labs: Lab Results 08/24/23 Range/Units 21:16 WBC 6.5 (4.8-10.8) X10*3/uL RBC 4.11 L (4.60-5.80) X10*6/uL Hgb 12.3 L (14.0-18.0) g/dl Hct 35.9 L (42.0-52.0) % MCV 87.3 (80.0-98.0) fL MCH 29.9 (27.0-33.0) pg MCHC 34.3 (31.0-36.0) g/dl RDW 13.0 (11.0-16.0) % Plt Count 220 (160-400) X10*3/uL MPV 9.4 (9.4-12.4) fL Immature Gran % (Auto) 0.2 (0.0-0.4) % Neut % (Auto) 52.5 (45-73) % Lymph % (Auto) 32.9 (20-40) % [place] % (Auto) 11.0 (2-11) % Eos % (Auto) 2.8 (0-4) % Baso % (Auto) 0.6 (0-2) % Lymph # (Auto) 2.2 (1.2-4.9) X10*3/uL [place] # (Auto) 0.7 (0.1-1.2) X10*3/uL Eos # (Auto) 0.2 (0.0-0.4) X10*3/uL Baso # (Auto) 0.0 (0.0-0.2) X10*3/uL Abs Immat Gran (auto) 0.01 (0.00-0.03) X10*3/uL Absolute Neuts (auto) 3.4 (2.0-8.3) x10*3/uL Absolute Nucleated RBC 0.000 (0.0-0.012) X10*3/uL Nucleated RBC % (auto) 0.0 (0.0-0.2) /100WBC ESR 18 H (0-15) MM/HR APTT 30.9 (26.0-36.4) SEC Sodium 140 (135-145) mmol/L Potassium 3.8 (3.3-5.1) mmol/L Chloride 107 (96-108) mmol/L Carbon Dioxide 24 (22-29) mmol/L Anion Gap 13 (12-20) BUN 18 H (9-16) mg/dL Creatinine 1.05 (0.5-1.4) mg/dL Estim Creat Clear Calc 73.2 Estimated GFR > 60 Random Glucose 115 (60-115) mg/dL Calcium 9.1 (8.4-10.2) mg/dL Total Bilirubin 0.3 (0.0-1.0) mg/dL AST 15 (5-37) U/L ALT 12 (0-40) U/L Alkaline Phosphatase 97 (39-117) U/L Troponin I High Sens < 2.7 (<3.5-35.0) ng/L B-Natriuretic Peptide 186 H (<100) pg/mL Total Protein 7.2 (6.5-8.0) g/dL Albumin 4.0 (3.5-5.0) g/dL Independent Interpretation I performed an independent interpretation of an: EKG Interpretation: Sinus bradycardia heart rate 53 beats per minute left axis deviation LVH no acute ST T wave no acute ischemia Discharge Plan Discharge Clinical Impression: Atypical chest pain, Positive TB test Patient Disposition: Home, Self-Care Instructions: Chest Wall Pain (ED) Additional Instructions: You have positive TB test but no active tuberculosis you do not need any medications at this time Follow-up with PCP and You may have T spot test as outpatient You do not need any isolation You may take Tylenol for chest pain when you cough Prescriptions: No Action Clenpiq 10 mg-3.5 gram -12 gram/160 mL solution 160 ml PO DAILY Qty: 320 0RF Rx Instructions: take first dose at 5-9PM evening before colonoscopy; 2nd dose the next day approximately 5 hrs before colonoscopy (DME) blood pressure monitor [Blood Pressure Kit] Kit See Rx Instructions .Route Qty: 1 0RF Rx Instructions: As directed (DME) pulse oximeter See Rx Instructions .Route .MEDSUPPLY Qty: 1 0RF Rx Instructions: As directed (DME) thermometer See Rx Instructions .Route .MEDSUPPLY Qty: 1 0RF Rx Instructions: As directed pantoprazole 40 mg tablet,delayed release (DR/EC) 40 mg PO DAILY Qty: 90 8RF cyanocobalamin (vitamin B-12) 1,000 mcg tablet 1,000 mcg PO DAILY Qty: 90 8RF loperamide 2 mg capsule 2 mg PO QID PRN (Reason: for diarrhea) Qty: 112 3RF doxycycline hyclate 100 mg tablet 100 mg PO BID Qty: 20 0RF rosuvastatin 40 mg tablet 40 mg PO DAILY isosorbide mononitrate 60 mg tablet extended release 24 hr 60 mg PO DAILY clopidogrel 75 mg tablet 75 mg PO DAILY sertraline 100 mg tablet PO aspirin 81 mg tablet,delayed release (DR/EC) 81 mg PO DAILY nitroglycerin 0.4 mg tablet, sublingual 0.4 mg sublingual tramadol 50 mg tablet 50 mg PO Q8H PRN (Reason: pain) Qty: 20 0RF polyethylene glycol 3350 [Miralax] 17 gram/dose powder 17 g PO DAILY 1 Days Qty: 238 0RF Rx Instructions: Mix Miralax with 64 oz(8 cups) of Crystal light. Take 2 tablets of Dulcolax qt 12 pm. Wait to have your 1st bowel movement, then begin drinking Miralax. Drink a glass of Miralax every 10-15 minutes until you are finished. You will drink at least another 4 cups of clear liquid of your choice over the next 2 hours. Please drink as many clear liquids as possible You may have clear liquids up to four hours before your procedure bisacodyl [Dulcolax (bisacodyl)] 5 mg tablet,delayed release (DR/EC) 10 mg PO BEDTIME 2 Days Qty: 4 0RF Rx Instructions: Take 2 tablets at noon 2 days before colonoscopy. Take 2 tablets at noon 1 day before colonoscopy Interventions: ED Discharge Assessment Last Done: 08/24/23 22:43 Discharge Date/Time: 08/24/23 22:45
[2023-08-24 21:24] LABS: MANUAL DIFF FLAG NO
[2023-08-24 21:25] LABS: Basophils Percent Auto 0.6 % (0-2); Eosinophils Absolute Auto 0.2 X10*3/uL (0.0-0.4); Eosinophils Percent Auto 2.8 % (0-4); Hematocrit 35.9 % (42.0-52.0); Hemoglobin 12.3 g/dl (14.0-18.0); Imm Gran Abs Auto 0.01 X10*3/uL (0.00-0.03); Imm Gran Pct Auto 0.2 % (0.0-0.4); Lymphocytes Absolute Auto 2.2 X10*3/uL (1.2-4.9); Lymphocytes Percent Auto 32.9 % (20-40); Mean Corpuscular HGB Conc 34.3 g/dl (31.0-36.0); Mean Corpuscular Hemoglobin 29.9 pg (27.0-33.0); Mean Corpuscular Volume 87.3 fL (80.0-98.0); Mean Platelet Volume 9.4 fL (9.4-12.4); Monocytes Absolute Auto 0.7 X10*3/uL (0.1-1.2); Neutrophils Absolute Auto 3.4 x10*3/uL (2.0-8.3); Neutrophils Percent Auto 52.5 % (45-73); Platelet Count 220 X10*3/uL (160-400); Red Blood Count 4.11 X10*6/uL (4.60-5.80); White Blood Count 6.5 X10*3/uL (4.8-10.8)
[2023-08-24 21:33] LABS: Partial Thromboplastin Time 30.9 SEC (26.0-36.4)
[2023-08-24 21:39] LABS: Alanine Aminotransferase 12 U/L (0-40); Alkaline Phosphatase 97 U/L (39-117); Anion Gap 13 (12-20); Aspartate Amino Transferase 15 U/L (5-37); Bilirubin Total 0.3 mg/dL (0.0-1.0); Blood Urea Nitrogen 18 mg/dL (9-16); Calcium 9.1 mg/dL (8.4-10.2); Carbon Dioxide 24 mmol/L (22-29); Chloride 107 mmol/L (96-108); Creatinine Clr Calc Pharmacy 73.2; Estimated Glomerular Filt Rate > 60; Glucose Random 115 mg/dL (60-115); Potassium 3.8 mmol/L (3.3-5.1); Sodium 140 mmol/L (135-145); Total Protein 7.2 g/dL (6.5-8.0)
[2023-08-24 21:45] LABS: B Type Natriuretic Peptide 186 pg/mL (<100)
[2023-08-24 21:46] LABS: Troponin-I High Sensitivity < 2.7 ng/L (<3.5-35.0)
[2023-08-24 22:28] LABS: Erythrocyte Sedimentation Rate 18 MM/HR (0-15)
== END 2023-08-24 22:45 | disposition home or self-care (01) ==
PROVIDERS: Emergency Provider Internal Medicine; PCP Internal Medicine
DX: R07.89 Other chest pain (principal); R00.1 Bradycardia, unspecified; R76.11 Nonspecific reaction to tuberculin skin test without active tuberculosis; E78.5 Hyperlipidemia, unspecified; Z79.82 Long term (current) use of aspirin; Z79.02 Long term (current) use of antithrombotics/antiplatelets; Z79.899 Other long term (current) drug therapy; Z95.1 Presence of aortocoronary bypass graft
CPT/HCPCS: 36415; 80053; 83880; 84484; 85025; 85652; 85730; 93005; 99283; 99285

== ENCOUNTER → 2023-08-24 21:25 | Outpatient (BNV) | payer OTHER, SELFPAY | PROVIDERS: Emergency Provider Internal Medicine; PCP Internal Medicine; Visit Provider Internal Medicine Cardiovascular Disease | DX: R07.9 Chest pain, unspecified (principal) | CPT/HCPCS: 93010 ==

== ENCOUNTER 2023-08-29 13:08 | Outpatient (AMB) | payer OTHER, MEDICAID, SELFPAY ==
[2023-08-29 13:11] VITALS: BP 122/70; PULSE 68; O2SAT 98; BMI 33.6
--- NOTE | 2023-08-29 13:11 | MHC.PC.OV ---
Vital Signs 08/29/23 13:11 Height 6 ft 2 in Weight 262 lb BMI 33.6 BP 122/70 Blood Pressure Location Lt brachial Position Sitting Pulse 68 Pulse Source Pulse Oximeter Pulse Oximetry (%) 98 Oxygen Delivery Method Room Air Intake Visit Reasons: 3mth f/u Phonograph Needle Tip Maker Required: No Ballast Regulator Operator: Not Required per policy Accompanied by: Self / Same As Patient Allergies influenza virus vaccine, specific [FLU VACCINE] Allergy (Unknown, Verified 08/29/23 13:12) NAUSEA & VOMITING pneumococcal vaccine [PNEUMOCOCCAL VACCINE] Allergy (Unknown, Verified 08/29/23 13:12) NAUSEA & VOMITING Medication List - Last Reconciled 08/29/23 by Isac Littlejohn MD aspirin 81 mg PO DAILY bisacodyl (Dulcolax (bisacodyl)) 10 mg (2 x 5 mg) PO BEDTIME 2 days blood pressure monitor (Blood Pressure Kit) As directed clopidogrel 75 mg PO DAILY cyanocobalamin (vitamin B-12) 1,000 mcg PO DAILY doxycycline hyclate 100 mg PO BID isosorbide mononitrate ER 60 mg PO DAILY loperamide 2 mg PO QID PRN nitroglycerin 0.4 mg sublingual pantoprazole 40 mg PO DAILY polyethylene glycol 3350 (Miralax) 17 grams PO DAILY 1 day [pulse oximeter As directed] rosuvastatin 40 mg PO DAILY sertraline mg PO sod picosulf-mag ox-citric ac 10 mg-3.5 gram- 12 gram/160 mL (Clenpiq) 160 mL PO DAILY 2 doses [thermometer As directed] tramadol 50 mg PO Q8H PRN Tobacco use date assessed: 08/29/23 Fall risk assessment: No Falls in past year Last assessed Fall Risk: 08/29/23 Dental Screening Dental Screen Date: 08/29/23 Did you have a dental visit in the last 12 months?: No Did you have a dental problem in the last 6 months where you did not have access to dental care?: No Was dental information given to patient?: Patient has dentist HPI 3mth f/u HPI Details Had tuberculosis as a child and inadvertently given a PPD for his program; markedly positive, 20 mm; a cxr was done and was nl; he should not receive any more PPDs. If TB screening is needed, he should have a CXR [facility] Medical History Obesity Hyperlipidemia Surgical History History of two vessel coronary artery bypass graft History of coronary artery stent placement Family History Father COPD (chronic obstructive pulmonary disease) Lung cancer Mother Myocardial infarction Family/Other Diabetes Thyroid disease Social History Housing: Apartment Alcohol intake: never Patient Tobacco Use Status: Former Tobacco user Tobacco use type: Cigarette e-Cigarette/Vaping Use: Never Used Second Hand Smoke Exposure: No service: No Current occupational status: disabled Cognitive needs: No Hearing needs: No Vision needs: No Questionnaire PHQ-9 Over the last 2 weeks, how often have you been bothered by any of the following problems? 1. Little interest or pleasure in doing things: not at all 2. Feeling down, depressed, or hopeless: not at all 3. Trouble falling or staying asleep, or sleeping too much: not at all 4. Feeling tired or having little energy: not at all 5. Poor appetite or overeating: not at all 6. Feeling bad about yourself - or that you are a failure or have let yourself or your family down: not at all 7. Trouble concentrating on things, such as reading the newspaper or watching television: not at all 8. Moving or speaking so slowly that other people could have noticed. Or the opposite - being so fidgety or restless that you have been moving around a lot more than usual: not at all 9. Thoughts that you would be better off or of hurting yourself in some way: not at all Total score: 0 Depression Screening Interpretation: Negative Depression Screening Done: Yes 23248 - PHQ-9 Billing: Yes Source: Developed by Drs. Asif Ward, Honey Rodriguez, Baljeet Reynolds and colleagues, with an educational ankita from [employer]. Thrive Questionnaire Date Thrive assessed: 08/29/23 I am a: Patient What is your living situation today?: I have a steady place to live Within the past 12 months, did the food you bought not last and you didn't have the money to get more?: Never true Within the past 12 months, did you worry whether your food would run out before you got money to buy more?: Never true Do you have trouble paying for medicines?: No Do you have trouble getting transportation to medical appointments?: No Do you have trouble paying your heating and electricity bill?: No Do you have trouble taking care of your child, family member or friend?: No Do you have trouble with day-to-day activities such as bathing, preparing meals, shopping, managing finances, etc.?: No Are you currently unemployed and looking for a job?: No Are you interested in more education?: No Please select the resources that you would like help with: None THRIVE Score: 0 AUDIT C Alcohol Use Questionnaire (AUDIT-C) 1. How often do you have a drink containing alcohol?: Never 3. How often do you have six or more drinks on one occasion?: Never Total Score: 0 Score Reviewed/Action Taken: No NOMAN-7 AMB Questionnaire NOMAN-7 Date NOMAN - 7 assessed: 08/29/23 Feeling nervous, anxious, or on edge: 0 = Not at all Not being able to stop or control worryin = Not at all Worrying too much about different things: 0 = Not at all Trouble relaxin = Not at all Being so restless that it is hard to sit still: 0 = Not at all Becoming easily annoyed or irritable: 0 = Not at all Feeling afraid as if something awful might happen: 0 = Not at all Total NOMAN-7 score (0-4 normal; 5-9 mild; 10-14 moderate; 15-21 severe): 0 Source: Developed by Drs. Asif Ward, Honey Rodriguez, Baljeet Reynolds and colleagues, with an educational ankita from [employer]. NOMAN-7 Assessment Billing NOMAN-7 Assessment Tool: NOMAN-7 Assessment 09433 Review of Systems Const Denies chills, Denies headache(s) and Denies weight loss ENT Denies headache(s) Card Denies chest pain, Denies syncope, Denies irregular heart rhythm and Denies dyspnea Resp Denies chest congestion, Denies cough and Denies dyspnea GI Denies abdominal pain, Denies change in stool character, Denies nausea and Denies vomiting Musc Denies deformity and Denies joint swelling Neuro Denies syncope and Denies headache(s) Physical exam (Primary Care) Vital Signs: Last Vital Signs Pulse 68 08/29/23 13:11 BP 122/70 08/29/23 13:11 Pulse Ox 98 08/29/23 13:11 Oxygen Delivery Method Room Air 08/29/23 13:11 BMI result Body Mass Index 33.6 Tobacco/Smoking Status: Tobacco use Status Tobacco use date assessed 08/29/23 08/29/23 13:13 Patient Tobacco Use Status Former Tobacco user 08/29/23 13:13 Tobacco use type Cigarette 08/29/23 13:13 e-Cigarette/Vaping Use Never Used 08/29/23 13:13 PHQ-9: PHQ-9 Score PHQ-9: Total score 0 08/29/23 13:13 Depression Screening Interpretation: Negative Thrive Assessment: Date of Thrive Assessment Date Thrive assessed 08/29/23 08/29/23 13:13 Const General: cooperative, comfortable, no acute distress and alert Neck Neck: Yes no lymphadenopathy Thyroid: Thyroid normal Resp Effort & Inspection: normal respiratory effort Auscultation: clear to auscultation bilaterally Percussion: percussion normal Cardio Jugular venous distension: no JVD Palpation: normal PMI Rate: regular rate Rhythm: regular rhythm Heart sounds: S1 normal heart sound present and S2 normal heart sound present GI Inspection: Yes normal to inspection Palpation (GI): No hepatosplenomegaly present Skin General skin exam: no rashes or lesions noted Extrem General: Yes no clubbing, cyanosis or edema Assessment and Plan Assessment & Plan (1) Positive PPD, treated: Code(s): R76.11 - Nonspecific reaction to tuberculin skin test without active tuberculosis Coding Level of Care Code Est Pt Level 3 (68224) Diagnoses Positive PPD, treated R76.11 Additional Codes NOMAN-7 Assessment Billing - NOMAN-7 Assessment Tool: NOMAN-7 Assessment 90682 ([id number])
== END 2023-08-29 13:33 | disposition home or self-care (01) ==
PROVIDERS: PCP Internal Medicine; Visit Provider Internal Medicine
DX: R76.11 Nonspecific reaction to tuberculin skin test without active tuberculosis (principal)
CPT/HCPCS: 99213

== ENCOUNTER 2023-12-24 16:30 | Emergency (ER) | payer OTHER, SELFPAY ==
--- NOTE | ~2023-12-24 | CT_ITS ---
EXAMINATION: CT HEAD WITHOUT CONTRAST CLINICAL INFORMATION: Blurry vision COMPARISON: 02/02/2023 TECHNIQUE: Contiguous axial imaging was performed from the skull base to vertex without intravenous administration of contrast. This CT examination was performed using dose optimization techniques as appropriate, variously including the following: *Automated exposure control *Adjustment of mA and/or kV according to patient size (this includes techniques or standardized protocols for targeted exams where dose is matched to indication/reason for exam; i.e. extremities or head) *Use of iterative reconstruction technique DLP: 873 mGy-cm FINDINGS: There is no evidence of acute intracranial hemorrhage or territorial infarction. No abnormal mass effect or midline shift is seen. Powers to white matter differentiation is well preserved. No extra-axial fluid collections are identified. The ventricles are normal in size. 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 The osseous structures and soft tissues are normal. The mastoid air cells and visualized portions of the paranasal sinuses are well-aerated. CT/CT head/brain wo IV con IMPRESSION: No acute intracranial pathology.
[2023-12-24 16:39] VITALS: BP 125/73; PULSE 62; O2SAT 98
[2023-12-24 16:45] VITALS: BP 110/52; PULSE 62; RESP 18; TEMP 36.5; O2SAT 96; BMI 37.1
--- NOTE | 2023-12-24 16:45 | ED.GENADULT ---
HPI - General Adult General Chief complaint: Neuro Symptoms/Deficit Stated complaint: Left sided facial numbness x 1 week Time Seen by Provider: 12/24/23 16:38 Source: patient Mode of arrival: ambulatory Limitations: no limitations History of Present Illness HPI narrative: Patient with history of coronary disease status post CABG, depression on aspirin and clopidogrel comes here for 1 week of left-sided facial numbness no headache also noticed for few days blurry vision from the left eye no scotomas no headache no other weakness Related Data Home Medications ?Medication ?Instructions ?Recorded ?Confirmed aspirin 81 mg tablet,delayed 81 mg PO DAILY 07/26/20 08/29/23 release clopidogrel 75 mg tablet 75 mg PO DAILY 07/26/20 08/29/23 isosorbide mononitrate 60 mg 60 mg PO DAILY 07/26/20 08/29/23 tablet,extended release 24 hr nitroglycerin 0.4 mg sublingual 0.4 mg sublingual angina 07/26/20 08/29/23 tablet rosuvastatin 40 mg tablet 40 mg PO DAILY 07/26/20 08/29/23 sertraline 100 mg tablet mg PO 07/26/20 08/29/23 Previous Rx's ?Medication ?Instructions ?Recorded bisacodyl 5 mg tablet,delayed 10 mg (2 x 5 mg) PO BEDTIME Colon 08/22/21 release (Dulcolax (bisacodyl)) prep 2 days #4 tabs polyethylene glycol 3350 17 17 g PO DAILY 1 day #238 grams 08/22/21 gram/dose oral powder (Miralax) sod picosulf 10 mg-magnes 3.5 160 ml PO DAILY 2 doses #320 mL 09/06/21 gram-citric 12 gram/160 mL oral solution (Clenpiq) blood pressure monitor (Blood #1 ea 08/18/22 Pressure Kit) pulse oximeter #1 ea 08/18/22 thermometer #1 ea 08/18/22 pantoprazole 40 mg tablet,delayed 40 mg PO DAILY #90 tabs 12/30/22 release doxycycline hyclate 100 mg tablet 100 mg PO BID #20 tabs 02/02/23 tramadol 50 mg tablet 50 mg PO Q8H PRN pain #20 tabs 02/08/23 cyanocobalamin (vitamin B-12) 1,000 mcg PO DAILY #90 tabs 02/17/23 1,000 mcg tablet loperamide 2 mg capsule 2 mg PO QID PRN for diarrhea #112 08/08/23 caps carbamazepine 200 mg tablet 200 mg PO BID #60 tabs 12/24/23 (Tegretol) Allergies Allergy/AdvReac Type Severity Reaction Status Date / Time influenza virus vaccine, Allergy Unknown NAUSEA & Verified 12/24/23 16:49 specific VOMITING [FLU VACCINE] pneumococcal vaccine Allergy Unknown NAUSEA & Verified 08/29/23 13:12 [PNEUMOCOCCAL VACCINE] VOMITING Review of Systems Review of Systems: Yes all other systems are reviewed and are negative [facility]LY [facility] Past Medical History Medical History Obesity Hyperlipidemia Surgical History History of two vessel coronary artery bypass graft History of coronary artery stent placement Family History Family History Father COPD (chronic obstructive pulmonary disease) Lung cancer Mother Myocardial infarction Family/Other Diabetes Thyroid disease Social History Social History Housing: Apartment Alcohol intake: never Patient Tobacco Use Status: Former Tobacco user Tobacco use type: Cigarette Smoked in Last 30 Days: No e-Cigarette/Vaping Use: Never Used Second Hand Smoke Exposure: No Use of substances other than those prescribed or required for medical reasons: No Advance Directives: No Advance Directives Information Provided: Yes Do you have a plan to hurt others: No Plan service: No Current occupational status: disabled Cognitive needs: No Hearing needs: No Vision needs: No Physical Exam ED Vital Signs: Vital Signs - 24 hr 12/24/23 16:45 12/24/23 16:50 12/24/23 17:21 Temperature 97.7 F 97.9 F 98.2 F Pulse Rate 62 64 61 Respiratory Rate 18 17 16 Blood Pressure 110/52 L 109/48 L Pulse Oximetry 96 96 Oxygen Delivery Method Room Air Room Air BMI result Body Mass Index 37.1 Appearance: Alert. Oriented X3. No acute distress. Eyes: PERRLA, No Nystagmus ENT: Pharynx normal. Oral Mucosa moist reproducible neuralgia in the left face when tapped at Neck: Normal inspection. Neck supple. CVS: Normal heart rate and rhythm. Pulses normal. Respiratory: No respiratory distress. Equal air entry bilateral, no wheezing/rales/rhonchi Abdomen: Soft and nontender. Bowel sounds are present, no mass palpable, no CVA tenderness Skin: Skin warm and dry. Normal skin color. Normal skin turgor. Extremities: No lower extremity edema. No calf tenderness Neuro: Oriented X 3. No motor deficit. No sensory deficit.No cerebellar signs , cranial nerves II-XII intact no facial droop Medical Decision Making Medical Decision Making [facility] Narrative: Patient's neuralgic pain in the left side of the face clinically tolerating neuralgia CT scan of the head is negative for acute labs are stable discharge patient home on Tegretol Differential Diagnosis Differential Diagnoses: The differential diagnosis associated with the presentation includes Lab Data [facility] Lab Attestation statement: I reviewed the patient's lab results. 12/24/23 17:30 12/24/23 17:30 Labs: Lab Results 12/24/23 Range/Units 17:30 WBC 6.9 (4.8-10.8) X10*3/uL RBC 4.26 L (4.60-5.80) X10*6/uL Hgb 12.9 L (14.0-18.0) g/dl Hct 37.3 L (42.0-52.0) % MCV 87.6 (80.0-98.0) fL MCH 30.3 (27.0-33.0) pg MCHC 34.6 (31.0-36.0) g/dl RDW 13.2 (11.0-16.0) % Plt Count 220 (160-400) X10*3/uL MPV 9.2 L (9.4-12.4) fL Immature Gran % (Auto) 0.3 (0.0-0.4) % Neut % (Auto) 49.1 (45-73) % Lymph % (Auto) 35.6 (20-40) % [place] % (Auto) 11.6 H (2-11) % Eos % (Auto) 2.5 (0-4) % Baso % (Auto) 0.9 (0-2) % Lymph # (Auto) 2.5 (1.2-4.9) X10*3/uL [place] # (Auto) 0.8 (0.1-1.2) X10*3/uL Eos # (Auto) 0.2 (0.0-0.4) X10*3/uL Baso # (Auto) 0.1 (0.0-0.2) X10*3/uL Abs Immat Gran (auto) 0.02 (0.00-0.03) X10*3/uL Absolute Neuts (auto) 3.4 (2.0-8.3) x10*3/uL Absolute Nucleated RBC 0.000 (0.0-0.012) X10*3/uL Nucleated RBC % (auto) 0.0 (0.0-0.2) /100WBC PT 10.8 L (11.1-13.3) SEC INR 0.9 (0.9-1.1) Sodium 139 (135-145) mmol/L Potassium 3.8 (3.3-5.1) mmol/L Chloride 107 (96-108) mmol/L Carbon Dioxide 25 (22-29) mmol/L Anion Gap 11 L (12-20) BUN 14 (9-16) mg/dL Creatinine 0.85 (0.5-1.4) mg/dL Estim Creat Clear Calc 119.6 Estimated GFR > 60 Random Glucose 118 H (60-115) mg/dL Calcium 8.8 (8.4-10.2) mg/dL Total Bilirubin 0.3 (0.0-1.0) mg/dL AST 14 (5-37) U/L ALT 15 (0-40) U/L Alkaline Phosphatase 96 (39-117) U/L Total Protein 6.9 (6.5-8.0) g/dL Albumin 4.0 (3.5-5.0) g/dL Independent Interpretation I performed an independent interpretation of an: CT Scan Radiology Impression Discussion of test interpretation with radiology: I have reviewed the radiologist's reading. Discharge Plan Discharge Clinical Impression: Trigeminal neuralgia of left side of face Patient Disposition: Home, Self-Care Instructions: Trigeminal Neuralgia (ED) Additional Instructions: Likely have inflammation of the nerve on the left side of the face Take medication as prescribed and follow with neurologist Prescriptions: New carbamazepine [Tegretol] 200 mg tablet 200 mg PO BID Qty: 60 0RF No Action Clenpiq 10 mg-3.5 gram -12 gram/160 mL solution 160 ml PO DAILY Qty: 320 0RF Rx Instructions: take first dose at 5-9PM evening before colonoscopy; 2nd dose the next day approximately 5 hrs before colonoscopy (DME) blood pressure monitor [Blood Pressure Kit] Kit See Rx Instructions .Route Qty: 1 0RF Rx Instructions: As directed (DME) pulse oximeter See Rx Instructions .Route .MEDSUPPLY Qty: 1 0RF Rx Instructions: As directed (DME) thermometer See Rx Instructions .Route .MEDSUPPLY Qty: 1 0RF Rx Instructions: As directed pantoprazole 40 mg tablet,delayed release (DR/EC) 40 mg PO DAILY Qty: 90 8RF cyanocobalamin (vitamin B-12) 1,000 mcg tablet 1,000 mcg PO DAILY Qty: 90 8RF loperamide 2 mg capsule 2 mg PO QID PRN (Reason: for diarrhea) Qty: 112 3RF doxycycline hyclate 100 mg tablet 100 mg PO BID Qty: 20 0RF rosuvastatin 40 mg tablet 40 mg PO DAILY isosorbide mononitrate 60 mg tablet extended release 24 hr 60 mg PO DAILY clopidogrel 75 mg tablet 75 mg PO DAILY sertraline 100 mg tablet PO aspirin 81 mg tablet,delayed release (DR/EC) 81 mg PO DAILY nitroglycerin 0.4 mg tablet, sublingual 0.4 mg sublingual tramadol 50 mg tablet 50 mg PO Q8H PRN (Reason: pain) Qty: 20 0RF polyethylene glycol 3350 [Miralax] 17 gram/dose powder 17 g PO DAILY 1 Days Qty: 238 0RF Rx Instructions: Mix Miralax with 64 oz(8 cups) of Crystal light. Take 2 tablets of Dulcolax qt 12 pm. Wait to have your 1st bowel movement, then begin drinking Miralax. Drink a glass of Miralax every 10-15 minutes until you are finished. You will drink at least another 4 cups of clear liquid of your choice over the next 2 hours. Please drink as many clear liquids as possible You may have clear liquids up to four hours before your procedure bisacodyl [Dulcolax (bisacodyl)] 5 mg tablet,delayed release (DR/EC) 10 mg PO BEDTIME 2 Days Qty: 4 0RF Rx Instructions: Take 2 tablets at noon 2 days before colonoscopy. Take 2 tablets at noon 1 day before colonoscopy Referrals: Amaury Aleman MD [Physician] - 2 weeks Print Language: Barbadian
[2023-12-24 16:50] VITALS: PULSE 64; RESP 17; TEMP 36.6
[2023-12-24 17:21] VITALS: BP 109/48; PULSE 61; RESP 16; TEMP 36.8; O2SAT 96
--- NOTE | 2023-12-24 17:32 | MHC.EDTECH ---
THIS PCT JUST ASSUMED CARE OF PATIENT ,VITALS TAKEN AND BLOOD DRAWN AND SENT TO LAB .
[2023-12-24 17:34] LABS: MANUAL DIFF FLAG NO
[2023-12-24 17:43] LABS: Basophils Absolute Auto 0.1 X10*3/uL (0.0-0.2); Basophils Percent Auto 0.9 % (0-2); Eosinophils Absolute Auto 0.2 X10*3/uL (0.0-0.4); Eosinophils Percent Auto 2.5 % (0-4); Hematocrit 37.3 % (42.0-52.0); Hemoglobin 12.9 g/dl (14.0-18.0); Imm Gran Abs Auto 0.02 X10*3/uL (0.00-0.03); Imm Gran Pct Auto 0.3 % (0.0-0.4); Lymphocytes Absolute Auto 2.5 X10*3/uL (1.2-4.9); Lymphocytes Percent Auto 35.6 % (20-40); Mean Corpuscular HGB Conc 34.6 g/dl (31.0-36.0); Mean Corpuscular Hemoglobin 30.3 pg (27.0-33.0); Mean Corpuscular Volume 87.6 fL (80.0-98.0); Mean Platelet Volume 9.2 fL (9.4-12.4); Monocytes Absolute Auto 0.8 X10*3/uL (0.1-1.2); Monocytes Percent Auto 11.6 % (2-11); Neutrophils Absolute Auto 3.4 x10*3/uL (2.0-8.3); Neutrophils Percent Auto 49.1 % (45-73); Platelet Count 220 X10*3/uL (160-400); Red Blood Count 4.26 X10*6/uL (4.60-5.80); Red Cell Distribution Width 13.2 % (11.0-16.0); White Blood Count 6.9 X10*3/uL (4.8-10.8)
[2023-12-24 17:48] LABS: INTERNATIONAL NORM RATIO 0.9 (0.9-1.1); Prothrombin Time 10.8 SEC (11.1-13.3)
[2023-12-24 17:50] LABS: Alanine Aminotransferase 15 U/L (0-40); Alkaline Phosphatase 96 U/L (39-117); Anion Gap 11 (12-20); Aspartate Amino Transferase 14 U/L (5-37); Bilirubin Total 0.3 mg/dL (0.0-1.0); Blood Urea Nitrogen 14 mg/dL (9-16); Calcium 8.8 mg/dL (8.4-10.2); Carbon Dioxide 25 mmol/L (22-29); Chloride 107 mmol/L (96-108); Creatinine Clr Calc Pharmacy 119.6; Estimated Glomerular Filt Rate > 60; Glucose Random 118 mg/dL (60-115); Potassium 3.8 mmol/L (3.3-5.1); Sodium 139 mmol/L (135-145); Total Protein 6.9 g/dL (6.5-8.0)
[2023-12-24 20:07] VITALS: BP 146/42; PULSE 61; RESP 18; O2SAT 97
[2023-12-24] MEDS: carBAMazepine 200 MG TABLET PO (20:16)
[2023-12-24 20:24] VITALS: BP 146/42; PULSE 61; RESP 18; TEMP 36.8; O2SAT 97
== END 2023-12-24 20:26 | disposition home or self-care (01) ==
PROVIDERS: Emergency Provider Internal Medicine; PCP Internal Medicine
DX: G50.0 Trigeminal neuralgia (principal); I25.10 Atherosclerotic heart disease of native coronary artery without angina pectoris; Z79.82 Long term (current) use of aspirin; Z79.899 Other long term (current) drug therapy; Z95.1 Presence of aortocoronary bypass graft
CPT/HCPCS: 36415; 70450; 80053; 85025; 85610; 99284

== ENCOUNTER 2024-01-09 13:48 | Outpatient (AMB) | payer OTHER, SELFPAY ==
[2024-01-09 13:55] VITALS: BP 132/70; PULSE 62; O2SAT 96; BMI 35.7
--- NOTE | 2024-01-09 13:55 | MHC.PC.OV ---
Vital Signs 01/09/24 13:55 Height 6 ft 2 in Weight 278 lb 0.6 oz BMI 35.7 BP 132/70 Blood Pressure Location Lt brachial Position Sitting Pulse 62 Pulse Source Pulse Oximeter Pulse Oximetry (%) 96 Oxygen Delivery Method Room Air Intake Visit Reasons: follow up Manager Speech Required: No Allergies influenza virus vaccine, specific [FLU VACCINE] Allergy (Unknown, Verified 01/09/24 14:01) NAUSEA & VOMITING pneumococcal vaccine [PNEUMOCOCCAL VACCINE] Allergy (Unknown, Verified 01/09/24 14:01) NAUSEA & VOMITING Medication List - Last Reconciled 01/10/24 by Isac Littlejohn MD aspirin 81 mg PO DAILY blood pressure monitor (Blood Pressure Kit) As directed carbamazepine (Tegretol) 200 mg PO BID clopidogrel 75 mg PO DAILY cyanocobalamin (vitamin B-12) 1,000 mcg PO DAILY isosorbide mononitrate ER 60 mg PO DAILY loperamide 2 mg PO QID PRN nitroglycerin 0.4 mg sublingual pantoprazole 40 mg PO DAILY polyethylene glycol 3350 (Miralax) 17 grams PO DAILY 1 day [pulse oximeter As directed] rosuvastatin 40 mg PO DAILY sertraline mg PO [thermometer As directed] tramadol 50 mg PO Q8H PRN Tobacco use date assessed: 01/09/24 Fall risk assessment: No Falls in past year Last assessed Fall Risk: 01/09/24 Dental Screening Dental Screen Date: 08/29/23 HPI follow up HPI Details hyperlipidemia on rx; doing well; compliant [facility] Medical History Obesity Hyperlipidemia Surgical History History of two vessel coronary artery bypass graft History of coronary artery stent placement Family History Father COPD (chronic obstructive pulmonary disease) Lung cancer Mother Myocardial infarction Family/Other Diabetes Thyroid disease Social History Housing: Apartment Alcohol intake: never Patient Tobacco Use Status: Former Tobacco user Tobacco use type: Cigarette e-Cigarette/Vaping Use: Never Used Second Hand Smoke Exposure: No service: No Current occupational status: disabled Cognitive needs: No Hearing needs: No Vision needs: No Questionnaire Thrive Questionnaire Date Thrive assessed: 08/29/23 AUDIT C Alcohol Use Questionnaire (AUDIT-C) 1. How often do you have a drink containing alcohol?: Never 3. How often do you have six or more drinks on one occasion?: Never Total Score: 0 Score Reviewed/Action Taken: No NOMAN-7 AMB Questionnaire NOMAN-7 Date NOMAN - 7 assessed: 08/29/23 Source: Developed by Drs. Asif Ward, Honey Rodriguez, Baljeet Reynolds and colleagues, with an educational ankita from [employer]. Review of Systems Const Denies chills, Denies headache(s) and Denies weight loss ENT Denies headache(s) Card Denies chest pain, Denies syncope, Denies irregular heart rhythm and Denies dyspnea Resp Denies chest congestion, Denies cough and Denies dyspnea GI Denies abdominal pain, Denies change in stool character, Denies nausea and Denies vomiting Musc Denies deformity and Denies joint swelling Neuro Denies syncope and Denies headache(s) Physical exam (Primary Care) Vital Signs: Last Vital Signs Pulse 62 01/09/24 13:55 BP 132/70 01/09/24 13:55 Pulse Ox 96 01/09/24 13:55 Oxygen Delivery Method Room Air 01/09/24 13:55 BMI result Body Mass Index 35.7 Tobacco/Smoking Status: Tobacco use Status Tobacco use date assessed 01/09/24 01/09/24 14:01 Patient Tobacco Use Status Former Tobacco user 01/09/24 14:01 Tobacco use type Cigarette 01/09/24 14:01 e-Cigarette/Vaping Use Never Used 01/09/24 14:01 Thrive Assessment: Date of Thrive Assessment Date Thrive assessed 08/29/23 01/09/24 14:01 Const General: cooperative, comfortable, no acute distress and alert Neck Neck: Yes no lymphadenopathy Thyroid: Thyroid normal Resp Effort & Inspection: normal respiratory effort Auscultation: clear to auscultation bilaterally Percussion: percussion normal Cardio Jugular venous distension: no JVD Palpation: normal PMI Rate: regular rate Rhythm: regular rhythm Heart sounds: S1 normal heart sound present and S2 normal heart sound present GI Inspection: Yes normal to inspection Palpation (GI): No hepatosplenomegaly present Skin General skin exam: no rashes or lesions noted Extrem General: Yes no clubbing, cyanosis or edema Assessment and Plan Assessment & Plan (1) Hyperlipidemia: Code(s): E78.5 - Hyperlipidemia, unspecified Plan: stable; same rx Coding Level of Care Code Est Pt Level 3 (16800) Diagnoses Hyperlipidemia E78.5
== END 2024-01-09 14:14 | disposition home or self-care (01) ==
PROVIDERS: PCP Internal Medicine; Visit Provider Internal Medicine
DX: E78.5 Hyperlipidemia, unspecified (principal)
CPT/HCPCS: 99213

== ENCOUNTER 2024-02-28 23:34 | Emergency (ER) | payer OTHER, SELFPAY ==
--- NOTE | ~2024-02-28 | CT_ITS ---
EXAMINATION: CT ABDOMEN AND PELVIS WITHOUT CONTRAST CLINICAL INFORMATION: Left flank pain COMPARISON: 10/23/2022 report only TECHNIQUE: Multidetector volumetric imaging was performed from the superior aspect of the liver through the pubic symphysis. Sagittal and coronal reformatted images were obtained on the technologist's workstation. This CT examination was performed using dose optimization techniques as appropriate, variously including the following: *Automated exposure control *Adjustment of mA and/or kV according to patient size (this includes techniques or standardized protocols for targeted exams where dose is matched to indication/reason for exam; i.e. extremities or head) *Use of iterative reconstruction technique DLP: 1330 mGy-cm FINDINGS: LUNG BASES: Peripheral groundglass opacity/reticulation may reflect a nonspecific chronic interstitial lung disease. LIVER, GALLBLADDER, AND BILIARY TREE: The liver is normal in size, shape, and attenuation. No focal hepatic lesion or biliary ductal dilatation is identified on this noncontrast exam. The gallbladder is unremarkable with no evidence of radiopaque gallstones, gallbladder wall thickening, or obvious pericholecystic inflammatory changes. PANCREAS: Slightly atrophic. SPLEEN: Borderline enlarged. Scattered calcified granulomas in the spleen. ADRENAL GLANDS: Unremarkable. KIDNEYS AND URETERS: No hydronephrosis or obstructing calculus bilaterally. Nonspecific symmetric mild bilateral perinephric stranding. BLADDER: Partially distended with slight diffuse mural prominence. GASTROINTESTINAL TRACT: No evidence of bowel obstruction or significant wall thickening. Appendix is suspected to be collapsed. No free fluid or free air is seen. ABDOMINAL WALL: No significant hernia is appreciated. LYMPH NODES: Normal. VASCULAR: Moderately extensive atherosclerotic calcifications. PELVIC VISCERA: Unremarkable. OSSEOUS STRUCTURES: Multilevel degenerative changes in the spine. CT/CT abdomen pelvis wo IV con IMPRESSION: No hydronephrosis or obstructing calculus. Slight diffuse mural prominence of the urinary bladder, which could be due to underdistention or potentially cystitis in the proper clinical setting.
[2024-02-28 23:42] VITALS: BP 130/92; BP 132/54; PULSE 59; PULSE 64; RESP 18; TEMP 36.7; O2SAT 97; O2SAT 99; BMI 36.6
--- NOTE | 2024-02-29 00:08 | MHC.EDTECH ---
Patient BIBA changed into hospital attire vitals taken. Patient urinated 300MLS of yellow urine in urinal,sample collected and sent to lab,call valle in reach
[2024-02-29] MEDS: Acetaminophen 325 MG TABLET 975 MG PO (00:22)
[2024-02-29 00:27] LABS: Appearance Urine Clear; Color Urine Yellow; Glucose Urine UA Negative (Negative); Leukocyte Esterase Urine Negative (Negative); Nitrite Urine Negative (Negative); Urine Blood Negative (Negative); Urine Ketones Negative (Negative); Urine Protein Negative (Neg-Trace)
[2024-02-29 00:31] LABS: Bacteria Urine None Seen (None Seen); Hyaline Casts Urine 0-2 /LPF (0-2); RBC Urine 0-2 /HPF (0-2); Squamous Epithelial Cell Urine 0-2 /HPF (0-2); WBC Urine 0-5 /HPF (0-5)
--- NOTE | 2024-02-29 00:47 | ED.GENADULT ---
HPI - General Adult General Chief complaint: General Medical Stated complaint: LEFT FLANK PAIN Time Seen by Provider: 02/28/24 23:50 Source: patient Mode of arrival: ambulatory Limitations: no limitations History of Present Illness ED Provider: DEBRA HPI narrative: 68 yo male with PMH of CAD s/p CABG, GERD, depression, anemia, HLD, obesity here with c/o atraumatic L groin pain without rash or lump. He states it just started out of nowhere and wraps around the groin. No n/v/d dysuria. No scrotal pain or testicular issues. MD complaint: groin pain Onset (ago): hour(s) (2) Location: left and lower extremity Radiation: back Severity: moderate Quality: aching Pain Consistency: intermittent Relieving factors: rest Exacerbating factors: movement Associated symptoms: denies other symptoms Treatments prior to arrival: none Related Data Home Medications ?Medication ?Instructions ?Recorded ?Confirmed aspirin 81 mg tablet,delayed 81 mg PO DAILY 07/26/20 01/10/24 release clopidogrel 75 mg tablet 75 mg PO DAILY 07/26/20 01/10/24 isosorbide mononitrate 60 mg 60 mg PO DAILY 07/26/20 01/10/24 tablet,extended release 24 hr nitroglycerin 0.4 mg sublingual 0.4 mg sublingual angina 07/26/20 01/10/24 tablet rosuvastatin 40 mg tablet 40 mg PO DAILY 07/26/20 01/10/24 sertraline 100 mg tablet mg PO 07/26/20 01/10/24 Previous Rx's ?Medication ?Instructions ?Recorded polyethylene glycol 3350 17 17 g PO DAILY 1 day #238 grams 08/22/21 gram/dose oral powder (Miralax) blood pressure monitor (Blood #1 ea 08/18/22 Pressure Kit) pulse oximeter #1 ea 08/18/22 thermometer #1 ea 08/18/22 tramadol 50 mg tablet 50 mg PO Q8H PRN pain #20 tabs 02/08/23 cyanocobalamin (vitamin B-12) 1,000 mcg PO DAILY #90 tabs 02/17/23 1,000 mcg tablet loperamide 2 mg capsule 2 mg PO QID PRN for diarrhea #112 08/08/23 caps carbamazepine 200 mg tablet 200 mg PO BID #60 tabs 12/24/23 (Tegretol) pantoprazole 40 mg tablet,delayed 40 mg PO DAILY #90 tabs 01/17/24 release Allergies Allergy/AdvReac Type Severity Reaction Status Date / Time influenza virus vaccine, Allergy Unknown NAUSEA & Verified 02/28/24 23:44 specific VOMITING [FLU VACCINE] pneumococcal vaccine Allergy Unknown NAUSEA & Verified 02/28/24 23:44 [PNEUMOCOCCAL VACCINE] VOMITING Review of Systems Review of Systems: Constitutional : No Fever, No Chills, No Fatigue ENT/Mouth : No sore throat, No Rhinorrhea Eyes: No Eye Pain, No Swelling, No Redness Cardiovascular : No Chest Pain, No SOB, No Dyspnea on Exertion Respiratory : No Cough, No Sputum Gastrointestinal : No Nausea, No Vomiting, No Diarrhea, No abdominal Pain Genitourinary : No Dysuria, No Urinary Frequency, No Hematuria, Musculoskeletal : No joint pain, No Myalgias, No Joint Swelling, pos groin pain Skin : No Skin Lesions, No rash Neuro : No Weakness, No Numbness, No Dizziness, no Headache Psych : No Anxiety/Panic, No Depression All other systems reviewed and are negative [facility] Past Medical History Attestation statement: The following information was validated with the patient. Source: old records reviewed Medical History Obesity Hyperlipidemia Surgical History History of two vessel coronary artery bypass graft History of coronary artery stent placement Family History Family History Father COPD (chronic obstructive pulmonary disease) Lung cancer Mother Myocardial infarction Family/Other Diabetes Thyroid disease Social History Social History Housing: Apartment Alcohol intake: never Patient Tobacco Use Status: Former Tobacco user Tobacco use type: Cigarette Smoked in Last 30 Days: No e-Cigarette/Vaping Use: Never Used Second Hand Smoke Exposure: No Use of substances other than those prescribed or required for medical reasons: No Advance Directives: No Advance Directives Information Provided: Yes Do you have a plan to hurt others: No Plan service: No Current occupational status: disabled Cognitive needs: No Hearing needs: No Vision needs: No Physical Exam ED Vital Signs: Vital Signs - 24 hr 02/28/24 23:42 Temperature 98.0 F Pulse Rate 59 Respiratory Rate 18 Blood Pressure 132/54 L Pulse Oximetry 97 Oxygen Delivery Method Room Air BMI result Body Mass Index 36.6 Appearance: Alert. Oriented X3. No acute distress. Eyes: Pupils equal, round and reactive to light. ENT: Pharynx normal. Neck: Normal inspection. Neck supple. CVS: Normal heart rate and rhythm. Pulses normal. Respiratory: No respiratory distress. Breath sounds normal. Abdomen: Soft and nontender. : normal, L groin no mass no hernia but reports ttp in inguinal area no lymphadenopathy felt Skin: Skin warm and dry. Normal skin color. Normal skin turgor. Extremities: No lower extremity edema. No calf ttp Neuro: Oriented X 3. No motor deficit. No sensory deficit. Medications Administered Discontinued Medications Generic Name Dose Route Start Last Admin Trade Name Freq PRN Reason Stop Dose Admin Acetaminophen 975 mg 02/29/24 00:06 02/29/24 00:22 Acetaminophen 325 Mg Tablet PO 02/29/24 00:07 975 mg ONCE ONE Administration Medical Decision Making Medical Decision Making [facility] Narrative: 68 yo male with PMH of CAD s/p CABG, GERD, depression, anemia, HLD, obesity here with c/o L groin pain with really underwhelming exam but reports L flank pain at this time will obtain U and CT scan for renal colic. PO tyelnol for pain, could be strain, renal colic, UTI Differential Diagnosis Differential Diagnoses: The differential diagnosis associated with the presentation includes strain, renal colic, UTI no hernia or mass felt Admission/Observation Consideration of admission/observation: Escalation of care including admission/observation considered no acute findings stable for DC Lab Data [facility] Lab Attestation statement: I reviewed the patient's lab results. Labs: Lab Results 02/29/24 Range/Units 00:13 Urine Color Yellow Urine Appearance Clear Urine pH 6.0 (5.0-9.0) Ur Specific [place] 1.020 (1.005-1.025) Urine Protein Negative (Neg-Trace) mg/dL Urine Glucose (UA) Negative (Negative) mg/dL Urine Ketones Negative (Negative) mg/dL Urine Blood Negative (Negative) Urine Nitrite Negative (Negative) Ur Leukocyte Esterase Negative (Negative) Urine RBC 0-2 (0-2) /HPF Urine WBC 0-5 (0-5) /HPF Ur Squamous Epith Cells 0-2 (0-2) /HPF Urine Bacteria None Seen (None Seen) Hyaline Casts 0-2 (0-2) /LPF Independent Interpretation I performed an independent interpretation of an: CT Scan (no acute findings normal UA ) Radiology Impression Discussion of test interpretation with radiology: I have reviewed the radiologist's reading. Independent Historian Clinical information obtained from an independent historian. History obtained from or confirmed by: EMS External Record Review External record reviewed: Inpatient record Discharge Plan Discharge Clinical Impression: Groin strain Qualifiers: Encounter type: initial encounter Laterality: left Qualified Code(s): S76.212A - Strain of adductor muscle, fascia and tendon of left thigh, initial encounter Patient Disposition: Home, Self-Care Instructions: Groin Strain (ED) Additional Instructions: negative urine study no acute findings on CT scan likely muscular strain return for worsening symptoms or concerns. Prescriptions: No Action (DME) blood pressure monitor [Blood Pressure Kit] Kit See Rx Instructions .Route Qty: 1 0RF Rx Instructions: As directed (DME) pulse oximeter See Rx Instructions .Route .MEDSUPPLY Qty: 1 0RF Rx Instructions: As directed (DME) thermometer See Rx Instructions .Route .MEDSUPPLY Qty: 1 0RF Rx Instructions: As directed cyanocobalamin (vitamin B-12) 1,000 mcg tablet 1,000 mcg PO DAILY Qty: 90 8RF loperamide 2 mg capsule 2 mg PO QID PRN (Reason: for diarrhea) Qty: 112 3RF pantoprazole 40 mg tablet,delayed release (DR/EC) 40 mg PO DAILY Qty: 90 28RF carbamazepine [Tegretol] 200 mg tablet 200 mg PO BID Qty: 60 0RF rosuvastatin 40 mg tablet 40 mg PO DAILY isosorbide mononitrate 60 mg tablet extended release 24 hr 60 mg PO DAILY clopidogrel 75 mg tablet 75 mg PO DAILY sertraline 100 mg tablet PO aspirin 81 mg tablet,delayed release (DR/EC) 81 mg PO DAILY nitroglycerin 0.4 mg tablet, sublingual 0.4 mg sublingual tramadol 50 mg tablet 50 mg PO Q8H PRN (Reason: pain) Qty: 20 0RF polyethylene glycol 3350 [Miralax] 17 gram/dose powder 17 g PO DAILY 1 Days Qty: 238 0RF Rx Instructions: Mix Miralax with 64 oz(8 cups) of Crystal light. Take 2 tablets of Dulcolax qt 12 pm. Wait to have your 1st bowel movement, then begin drinking Miralax. Drink a glass of Miralax every 10-15 minutes until you are finished. You will drink at least another 4 cups of clear liquid of your choice over the next 2 hours. Please drink as many clear liquids as possible You may have clear liquids up to four hours before your procedure Print Language: Dutch
[2024-02-29 02:00] VITALS: BP 119/59; PULSE 58; RESP 18; TEMP 36.4; O2SAT 97
--- NOTE | 2024-02-29 02:33 | MHC.EDTECH ---
Hourly rounds and vitals completed,patient is sleeping ,call valle in reach
[2024-02-29 02:40] VITALS: BP 119/59; PULSE 58; RESP 18; TEMP 36.4; O2SAT 97
== END 2024-02-29 02:41 | disposition home or self-care (01) ==
PROVIDERS: Emergency Provider Emergency Medicine; PCP Internal Medicine
DX: S39.011A Strain of muscle, fascia and tendon of abdomen, initial encounter (principal); X58.XXXA Exposure to other specified factors, initial encounter; R10.2 Pelvic and perineal pain; E78.5 Hyperlipidemia, unspecified; Z79.82 Long term (current) use of aspirin; Z79.02 Long term (current) use of antithrombotics/antiplatelets; Z79.899 Other long term (current) drug therapy; Z87.891 Personal history of nicotine dependence; Y93.9 Activity, unspecified; Y92.9 Unspecified place or not applicable; Y99.9 Unspecified external cause status
CPT/HCPCS: 74176; 81001; 99284

== ENCOUNTER 2024-04-23 13:11 | Outpatient (AMB) | payer OTHER, SELFPAY ==
[2024-04-23 13:14] VITALS: BP 134/72; PULSE 76; O2SAT 95; BMI 36.1
--- NOTE | 2024-04-23 13:14 | MHC.PC.OV ---
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 Accompanied by: Self / Same As Patient Allergies influenza virus vaccine, specific [FLU VACCINE] Allergy (Unknown, Verified 04/23/24 13:16) NAUSEA & VOMITING pneumococcal vaccine [PNEUMOCOCCAL VACCINE] Allergy (Unknown, Verified 04/23/24 13:16) NAUSEA & VOMITING Medication List - Last Reconciled 04/23/24 by Isac Littlejohn MD aspirin 81 mg PO DAILY blood pressure monitor (Blood Pressure Kit) As directed clopidogrel 75 mg PO DAILY cyanocobalamin (vitamin B-12) 1,000 mcg PO DAILY lisinopril 5 mg PO DAILY loperamide 2 mg PO QID PRN metoprolol tartrate 25 mg PO DAILY nitroglycerin 0.4 mg sublingual polyethylene glycol 3350 (Miralax) 17 grams PO DAILY 1 day [pulse oximeter As directed] rosuvastatin 40 mg PO DAILY sertraline mg PO [thermometer As directed] tramadol 50 mg PO Q8H PRN Tobacco use date assessed: 01/09/24 Fall risk assessment: No Falls in past year Last assessed Fall Risk: 04/23/24 Dental Screening Dental Screen Date: 08/29/23 HPI 3 Month F/U HPI Details HTN on Rx; doing well and compliant [facility] Medical History Obesity Hyperlipidemia Surgical History History of two vessel coronary artery bypass graft History of coronary artery stent placement Family History Father COPD (chronic obstructive pulmonary disease) Lung cancer Mother Myocardial infarction Family/Other Diabetes Thyroid disease Social History Housing: Apartment Alcohol intake: never Patient Tobacco Use Status: Former Tobacco user Tobacco use type: Cigarette e-Cigarette/Vaping Use: Never Used Second Hand Smoke Exposure: No service: No Current occupational status: disabled Cognitive needs: No Hearing needs: No Vision needs: No Questionnaire PHQ-9 Over the last 2 weeks, how often have you been bothered by any of the following problems? 1. Little interest or pleasure in doing things: not at all 2. Feeling down, depressed, or hopeless: not at all 3. Trouble falling or staying asleep, or sleeping too much: not at all 4. Feeling tired or having little energy: not at all 5. Poor appetite or overeating: not at all 6. Feeling bad about yourself - or that you are a failure or have let yourself or your family down: not at all 7. Trouble concentrating on things, such as reading the newspaper or watching television: not at all 8. Moving or speaking so slowly that other people could have noticed. Or the opposite - being so fidgety or restless that you have been moving around a lot more than usual: not at all 9. Thoughts that you would be better off or of hurting yourself in some way: not at all Total score: 0 Depression Screening Interpretation: Negative Depression Screening Done: Yes 16734 - PHQ-9 Billing: Yes Source: Developed by Drs. Asif Ward, Honey Rodriguez, Baljeet Reynolds and colleagues, with an educational ankita from [employer]. Thrive Questionnaire Date Thrive assessed: 08/29/23 Are you currently unemployed and looking for a job?: Yes AUDIT C Alcohol Use Questionnaire (AUDIT-C) 1. How often do you have a drink containing alcohol?: Never 3. How often do you have six or more drinks on one occasion?: Never Total Score: 0 Score Reviewed/Action Taken: No NOMAN-7 AMB Questionnaire NOMAN-7 Date NOMAN - 7 assessed: 08/29/23 Source: Developed by Drs. Asif Ward, Honey Rodriguez, Baljeet Reynolds and colleagues, with an educational ankita from [employer]. Review of Systems Const Denies chills, Denies headache(s) and Denies weight loss ENT Denies headache(s) Card Denies chest pain, Denies syncope, Denies irregular heart rhythm and Denies dyspnea Resp Denies chest congestion, Denies cough and Denies dyspnea GI Denies abdominal pain, Denies change in stool character, Denies nausea and Denies vomiting Musc Denies deformity and Denies joint swelling Neuro Denies syncope and Denies headache(s) Physical exam (Primary Care) Vital Signs: Last Vital Signs Pulse 76 04/23/24 13:14 BP 134/72 04/23/24 13:14 Pulse Ox 95 04/23/24 13:14 Oxygen Delivery Method Room Air 04/23/24 13:14 BMI result Body Mass Index 36.1 Tobacco/Smoking Status: Tobacco use Status Tobacco use date assessed 01/09/24 04/23/24 13:21 Patient Tobacco Use Status Former Tobacco user 04/23/24 13:21 Tobacco use type Cigarette 04/23/24 13:21 e-Cigarette/Vaping Use Never Used 04/23/24 13:21 PHQ-9: PHQ-9 Score PHQ-9: Total score 0 04/23/24 13:21 Depression Screening Interpretation: Negative Thrive Assessment: Date of Thrive Assessment Date Thrive assessed 08/29/23 04/23/24 13:21 Const General: cooperative, comfortable, no acute distress and alert Neck Neck: Yes no lymphadenopathy Thyroid: Thyroid normal Resp Effort & Inspection: normal respiratory effort Auscultation: clear to auscultation bilaterally Percussion: percussion normal Cardio Jugular venous distension: no JVD Palpation: normal PMI Rate: regular rate Rhythm: regular rhythm Heart sounds: S1 normal heart sound present and S2 normal heart sound present GI Inspection: Yes normal to inspection Palpation (GI): No hepatosplenomegaly present Skin General skin exam: no rashes or lesions noted Extrem General: Yes no clubbing, cyanosis or edema Assessment and Plan Assessment & Plan (1) Hypertension: Code(s): I10 - Essential (primary) hypertension Plan: stable; same rx Coding Level of Care Code Est Pt Level 3 (71973) Diagnoses Hypertension I10
== END 2024-04-23 13:28 | disposition home or self-care (01) ==
PROVIDERS: PCP Internal Medicine; Visit Provider Internal Medicine
DX: I10 Essential (primary) hypertension (principal)

== ENCOUNTER → 2024-04-23 13:11 | Outpatient (BNVA) | payer OTHER, SELFPAY | PROVIDERS: PCP Internal Medicine; Visit Provider Internal Medicine | DX: I10 Essential (primary) hypertension (principal) | CPT/HCPCS: 99212 ==

== ENCOUNTER 2024-05-07 13:09 | Emergency (ER) | payer OTHER, SELFPAY ==
--- NOTE | 2024-05-07 | ECG_ITS ---
Test Reason : CHEST PAIN Blood Pressure : / mmHG Vent. Rate : 059 BPM Atrial Rate : 059 BPM P-R Int : 184 ms QRS Dur : 104 ms QT Int : 418 ms P-R-T Axes : 022 -36 053 degrees QTc Int : 413 ms Sinus bradycardia Left axis deviation Minimal voltage criteria for LVH, may be normal variant ( R in aVL ) Abnormal ECG When compared with ECG of 24-AUG-2023 21:25, No significant change was found Referred By: Generic ED Physician Electronically Signed By:TIGRE JACKSON MD
--- NOTE | ~2024-05-07 | XR_ITS ---
EXAMINATION: XR CHEST CLINICAL INFORMATION: Chest pain. COMPARISON: August 24, 2023. TECHNIQUE: PA view of the chest was obtained. FINDINGS: There is a question of mild emphysema. Bibasilar patchy densities are present, nonspecific, possibly representing crowding of the interstitium related to upper lung field emphysema and/or chronic fibrotic changes; superimposed acute infiltrate cannot be confirmed or excluded. No consolidation, effusion, or pneumothorax is seen. The cardiac silhouette appears normal in size. Degenerative changes of the spine and right shoulder. Status post median sternotomy. XR/XR chest 1V IMPRESSION: Findings as above. Electronically signed by: Maury Rizzo MD 05/07/2024 04:51 PM EDT
[2024-05-07 14:04] VITALS: BP 99/53; PULSE 62; RESP 20; TEMP 35.8; O2SAT 99; BMI 35.9
--- NOTE | 2024-05-07 14:06 | ED_ITS ---
HPI - General Adult General Chief complaint: Chest Pain Stated complaint: heart problem-surgery done prior Time Seen by Provider: 05/07/24 20:00 Source: patient Limitations: no limitations History of Present Illness ED Provider: Cindy Muse PA-C HPI narrative: 68-year-old male with a history of hypertension, hyperlipidemia, morbid obesity, coronary artery disease, depression presents with chest pain and palpitations. Patient attends a senior care program, they were out for an outing, he was with his infertility nurse. Patient started to say that he felt ?shaky and unwell?. He was complaining of chest discomfort in that his ?heart was racing?. Patient denies symptoms at this time, he denies shortness of breath, diaphoresis, nausea, vomiting, recent cough cold symptoms or fever. When patient had symptoms that were transient. Related Data Home Medications ?Medication ?Instructions ?Recorded ?Confirmed aspirin 81 mg tablet,delayed 81 mg PO DAILY 07/26/20 04/23/24 release clopidogrel 75 mg tablet 75 mg PO DAILY 07/26/20 04/23/24 nitroglycerin 0.4 mg sublingual 0.4 mg sublingual angina 07/26/20 04/23/24 tablet rosuvastatin 40 mg tablet 40 mg PO DAILY 07/26/20 04/23/24 sertraline 100 mg tablet mg PO 07/26/20 04/23/24 lisinopril 5 mg tablet 5 mg PO DAILY 04/23/24 04/23/24 metoprolol tartrate 25 mg tablet 25 mg PO DAILY 04/23/24 04/23/24 Previous Rx's ?Medication ?Instructions ?Recorded polyethylene glycol 3350 17 17 g PO DAILY 1 day #238 grams 08/22/21 gram/dose oral powder (Miralax) blood pressure monitor (Blood #1 ea 08/18/22 Pressure Kit) pulse oximeter #1 ea 08/18/22 thermometer #1 ea 08/18/22 tramadol 50 mg tablet 50 mg PO Q8H PRN pain #20 tabs 02/08/23 loperamide 2 mg capsule 2 mg PO QID PRN for diarrhea #112 08/08/23 caps cyanocobalamin (vitamin B-12) 1,000 mcg PO DAILY #90 tabs 03/10/24 1,000 mcg tablet Allergies Allergy/AdvReac Type Severity Reaction Status Date / Time influenza virus vaccine, Allergy Unknown NAUSEA & Verified 05/07/24 14:06 specific VOMITING [FLU VACCINE] pneumococcal vaccine Allergy Unknown NAUSEA & Verified 05/07/24 14:06 [PNEUMOCOCCAL VACCINE] VOMITING Review of Systems 2 Review of Systems: Yes all other systems are reviewed and are negative Constitutional: Constitutional: Denies fever(s) Cardiovascular: Cardiovascular: Reports chest pain, Reports palpitations and Denies dyspnea Respiratory: Respiratory: Denies cough and Denies dyspnea Gastrointestinal: Gastrointestinal: Denies abdominal pain, Denies nausea and Denies vomiting Endocrine: Endocrine: Reports palpitations PMFSH Past Medical History Attestation statement: The following information was validated with the patient. Medical History Obesity Hyperlipidemia Surgical History History of two vessel coronary artery bypass graft History of coronary artery stent placement Family History Family History Father COPD (chronic obstructive pulmonary disease) Lung cancer Mother Myocardial infarction Family/Other Diabetes Thyroid disease Social History Social History Housing: Apartment Alcohol intake: never Patient Tobacco Use Status: Former Tobacco user Tobacco use type: Cigarette Smoked in Last 30 Days: No e-Cigarette/Vaping Use: Never Used Second Hand Smoke Exposure: No Use of substances other than those prescribed or required for medical reasons: No Advance Directives: No Advance Directives Information Provided: No service: No Current occupational status: disabled Cognitive needs: No Hearing needs: No Vision needs: No Physical Exam ED Vital Signs: Vital Signs - 24 hr 05/07/24 14:04 05/07/24 19:19 05/07/24 20:00 Temperature 96.5 F L 98.0 F Pulse Rate 62 61 61 Respiratory Rate 20 18 12 Blood Pressure 99/53 L 121/54 L 112/47 L Pulse Oximetry 99 98 100 Oxygen Delivery Method Room Air Room Air Room Air 05/07/24 21:22 Temperature 98.0 F Pulse Rate 61 Respiratory Rate 12 Blood Pressure 112/47 L Pulse Oximetry 100 Oxygen Delivery Method Room Air BMI result Body Mass Index 35.9 Const Other: Patient is sleeping comfortably in bed, easily woken with verbal stimuli Orientation/consciousness: patient oriented x3 Resp Effort & Inspection: normal respiratory effort Cardio Other: Normal peripheral perfusion Skin Other: Warm dry no rash Neuro General: patient oriented x3, no focal motor deficits and CN's II-XI intact bilaterally Psych Other: Calm cooperative asking to eat Course Course Course Narrative: RME: [employer]One by ROSA ISELA Purcell. To the ER male presents to ED for chest pain cold sweats that [place] the mall earlier today. Patient denies any syncopal episodes. Patient denies any slurred speech, facial droop, loss of vision, paralysis of extremities. EKG labs ordered. Chest x-ray ordered. SARs ordered Medical Decision Making Medical Decision Making [facility] Narrative: 68-year-old male with a history of hypertension, hyperlipidemia, morbid obesity, coronary artery disease, depression presents with chest pain and palpitations. Patient attends a senior care program, they were out for an outing, he was with his infertility nurse. Patient started to say that he felt ?shaky and unwell?. He was complaining of chest discomfort in that his ?heart was racing?. Patient denies symptoms at this time, he denies shortness of breath, diaphoresis, nausea, vomiting, recent cough cold symptoms or fever. When patient had symptoms that were transient. Problem: Age, known coronary artery disease History: Per patient I have considered the following differential diagnoses: New arrhythmia, ACS, PE, new heart failure, costochondritis, viral syndrome Plan: ACS was considered, he has known coronary artery disease, screening labs including cardiac enzymes going to EKG and chest x-ray were obtained. He has no cough or cold symptoms or fever to suggest a viral syndrome or pneumonia, thus costochondritis less likely. Thought about new heart failure, however he is not overtly hypertensive, he is not hypoxic, he is not volume overloaded on exam, and he denies shortness of breath. With a reported racing heart rate, I considered PE, however he is not objectively tachycardic, again not hypoxic, there are no exam findings to suggest DVT on exam, dimer not warranted at this time. I have independently reviewed the following tests: Labs: No leukocytosis, not anemic, no electrolyte abnormality, troponin negative, viral panel negative EKG: Sinus bradycardia, rate of 59, no ischemic changes no ectopy, QTC 413 Chest x-ray: XR CHEST CLINICAL INFORMATION: Chest pain. COMPARISON: August 24, 2023. TECHNIQUE: PA view of the chest was obtained. FINDINGS: There is a question of mild emphysema. Bibasilar patchy densities are present, nonspecific, possibly representing crowding of the interstitium related to upper lung field emphysema and/or chronic fibrotic changes; superimposed acute infiltrate cannot be confirmed or excluded. No consolidation, effusion, or pneumothorax is seen. The cardiac silhouette appears normal in size. Degenerative changes of the spine and right shoulder. Status post median sternotomy. XR/XR chest 1V IMPRESSION: Findings as above. Electronically signed by: Maury Rizzo MD 05/07/2024 04:51 PM EDT RP Lab Data 05/07/24 15:26 05/07/24 14:26 Labs: Lab Results 05/07/24 05/07/24 Range/Units 14:26 15:26 WBC 9.4 (4.8-10.8) X10*3/uL RBC 4.29 L (4.60-5.80) X10*6/uL Hgb 13.1 L (14.0-18.0) g/dl Hct 38.7 L (42.0-52.0) % MCV 90.2 (80.0-98.0) fL MCH 30.5 (27.0-33.0) pg MCHC 33.9 (31.0-36.0) g/dl RDW 12.9 (11.0-16.0) % Plt Count 239 (160-400) X10*3/uL MPV 9.2 L (9.4-12.4) fL Immature Gran % (Auto) 0.3 (0.0-0.4) % Neut % (Auto) 72.7 (45-73) % Lymph % (Auto) 15.7 L (20-40) % Pender % (Auto) 9.8 (2-11) % Eos % (Auto) 1.1 (0-4) % Baso % (Auto) 0.4 (0-2) % Lymph # (Auto) 1.5 (1.2-4.9) X10*3/uL Pender # (Auto) 0.9 (0.1-1.2) X10*3/uL Eos # (Auto) 0.1 (0.0-0.4) X10*3/uL Baso # (Auto) 0.0 (0.0-0.2) X10*3/uL Abs Immat Gran (auto) 0.03 (0.00-0.03) X10*3/uL Absolute Neuts (auto) 6.8 (2.0-8.3) x10*3/uL Absolute Nucleated RBC 0.000 (0.0-0.012) X10*3/uL Nucleated RBC % (auto) 0.0 (0.0-0.2) /100WBC PT 10.5 L (10.9-12.4) SEC INR 0.9 (0.9-1.1) APTT 22.3 L (26.0-36.8) SEC Sodium 140 (135-145) mmol/L Potassium 3.9 (3.3-5.1) mmol/L Chloride 104 (96-108) mmol/L Carbon Dioxide 26 (22-29) mmol/L Anion Gap 14 (12-20) BUN 16 (9-16) mg/dL Creatinine 1.04 (0.5-1.4) mg/dL Estim Creat Clear Calc 96.2 Estimated GFR > 60 Random Glucose 107 (60-115) mg/dL Calcium 9.3 (8.4-10.2) mg/dL Total Bilirubin 0.4 (0.0-1.0) mg/dL AST 20 (5-37) U/L ALT 19 (0-40) U/L Alkaline Phosphatase 90 (39-117) U/L Troponin I High Sens 2.7 (<3.5-35.0) ng/L B-Natriuretic Peptide 77 (<100) pg/mL Total Protein 7.5 (6.5-8.0) g/dL Albumin 4.4 (3.5-5.0) g/dL Influenza Type A (PCR) NEGATIVE (Negative) Influenza Type B (PCR) NEGATIVE (Negative) RSV RNA Qual (PCR) NEGATIVE (Negative) SARS-CoV-2 RNA (RT-PCR) NEGATIVE (Negative) Discharge Plan Discharge Clinical Impression: Heart palpitations, Chest pain Patient Disposition: Home, Self-Care Instructions: Chest Pain (ED), Heart Palpitations (ED) Additional Instructions: All of your screening labs including a cardiac enzymes were normal, that there were no concerning changes on the EKG in your chest x-ray was clear. In regard to your racing heart rate, you need to follow up with your primary care provider, you need additional assessment. They likely we will start what is called a Holter monitor, this will monitor your heart rate and report back to a computer for your primary care to view. Call tomorrow to make an appointment. Prescriptions: No Action (DME) blood pressure monitor [Blood Pressure Kit] Kit See Rx Instructions .Route Qty: 1 0RF Rx Instructions: As directed (DME) pulse oximeter See Rx Instructions .Route .MEDSUPPLY Qty: 1 0RF Rx Instructions: As directed (DME) thermometer See Rx Instructions .Route .MEDSUPPLY Qty: 1 0RF Rx Instructions: As directed loperamide 2 mg capsule 2 mg PO QID PRN (Reason: for diarrhea) Qty: 112 3RF cyanocobalamin (vitamin B-12) 1,000 mcg tablet 1,000 mcg PO DAILY Qty: 90 28RF rosuvastatin 40 mg tablet 40 mg PO DAILY clopidogrel 75 mg tablet 75 mg PO DAILY sertraline 100 mg tablet PO aspirin 81 mg tablet,delayed release (DR/EC) 81 mg PO DAILY nitroglycerin 0.4 mg tablet, sublingual 0.4 mg sublingual tramadol 50 mg tablet 50 mg PO Q8H PRN (Reason: pain) Qty: 20 0RF polyethylene glycol 3350 [Miralax] 17 gram/dose powder 17 g PO DAILY 1 Days Qty: 238 0RF Rx Instructions: Mix Miralax with 64 oz(8 cups) of Crystal light. Take 2 tablets of Dulcolax qt 12 pm. Wait to have your 1st bowel movement, then begin drinking Miralax. Drink a glass of Miralax every 10-15 minutes until you are finished. You will drink at least another 4 cups of clear liquid of your choice over the next 2 hours. Please drink as many clear liquids as possible You may have clear liquids up to four hours before your procedure lisinopril 5 mg tablet 5 mg PO DAILY metoprolol tartrate 25 mg tablet 25 mg PO DAILY Interventions: ED Discharge Assessment Last Done: 05/07/24 21:22 Discharge Date/Time: 05/07/24 21:30 Print Language: Turkmen
[2024-05-07 14:52] LABS: Alanine Aminotransferase 19 U/L (0-40); Albumin Level 4.4 g/dL (3.5-5.0); Alkaline Phosphatase 90 U/L (39-117); Anion Gap 14 (12-20); Aspartate Amino Transferase 20 U/L (5-37); Bilirubin Total 0.4 mg/dL (0.0-1.0); Blood Urea Nitrogen 16 mg/dL (9-16); Calcium 9.3 mg/dL (8.4-10.2); Carbon Dioxide 26 mmol/L (22-29); Chloride 104 mmol/L (96-108); Creatinine Clr Calc Pharmacy 96.2; Estimated Glomerular Filt Rate > 60; Glucose Random 107 mg/dL (60-115); Potassium 3.9 mmol/L (3.3-5.1); Sodium 140 mmol/L (135-145); Total Protein 7.5 g/dL (6.5-8.0)
[2024-05-07 14:57] LABS: B Type Natriuretic Peptide 77 pg/mL (<100)
[2024-05-07 14:58] LABS: Troponin-I High Sensitivity 2.7 ng/L (<3.5-35.0)
[2024-05-07 15:16] LABS: Influenza A PCR NEGATIVE (Negative); Influenza B PCR NEGATIVE (Negative); Resp Syncy Virus RNA Qual PCR NEGATIVE (Negative); SARS COV2 PCR INHOUSE NEGATIVE (Negative)
[2024-05-07 15:19] LABS: INTERNATIONAL NORM RATIO 0.9 (0.9-1.1); Prothrombin Time 10.5 SEC (10.9-12.4)
[2024-05-07 15:26] LABS: Partial Thromboplastin Time 22.3 SEC (26.0-36.8)
[2024-05-07 15:46] LABS: Basophils Percent Auto 0.4 % (0-2); Eosinophils Absolute Auto 0.1 X10*3/uL (0.0-0.4); Eosinophils Percent Auto 1.1 % (0-4); Hematocrit 38.7 % (42.0-52.0); Hemoglobin 13.1 g/dl (14.0-18.0); Imm Gran Abs Auto 0.03 X10*3/uL (0.00-0.03); Imm Gran Pct Auto 0.3 % (0.0-0.4); Lymphocytes Absolute Auto 1.5 X10*3/uL (1.2-4.9); Lymphocytes Percent Auto 15.7 % (20-40); Mean Corpuscular HGB Conc 33.9 g/dl (31.0-36.0); Mean Corpuscular Hemoglobin 30.5 pg (27.0-33.0); Mean Corpuscular Volume 90.2 fL (80.0-98.0); Mean Platelet Volume 9.2 fL (9.4-12.4); Monocytes Absolute Auto 0.9 X10*3/uL (0.1-1.2); Monocytes Percent Auto 9.8 % (2-11); Neutrophils Absolute Auto 6.8 x10*3/uL (2.0-8.3); Neutrophils Percent Auto 72.7 % (45-73); Platelet Count 239 X10*3/uL (160-400); Red Blood Count 4.29 X10*6/uL (4.60-5.80); Red Cell Distribution Width 12.9 % (11.0-16.0); White Blood Count 9.4 X10*3/uL (4.8-10.8)
[2024-05-07 17:01] LABS: MANUAL DIFF FLAG NO
[2024-05-07 19:19] VITALS: BP 121/54; PULSE 61; RESP 18; O2SAT 98
[2024-05-07 20:00] VITALS: BP 112/47; PULSE 61; RESP 12; TEMP 36.7; O2SAT 100
[2024-05-07 21:22] VITALS: BP 112/47; PULSE 61; RESP 12; TEMP 36.7; O2SAT 100
== END 2024-05-07 21:30 | disposition home or self-care (01) ==
PROVIDERS: Physician Assistant; Emergency Provider Internal Medicine; PCP Internal Medicine
DX: R00.2 Palpitations (principal); R07.9 Chest pain, unspecified; R00.1 Bradycardia, unspecified; Z03.818 Encounter for observation for suspected exposure to other biological agents ruled out; I10 Essential (primary) hypertension; E78.5 Hyperlipidemia, unspecified; Z87.891 Personal history of nicotine dependence; Z95.1 Presence of aortocoronary bypass graft; Z79.82 Long term (current) use of aspirin; Z79.02 Long term (current) use of antithrombotics/antiplatelets; Z79.899 Other long term (current) drug therapy
CPT/HCPCS: 0241U; 71045; 80053; 83880; 84484; 85025; 85610; 85730; 93005; 99283; 99285

== ENCOUNTER → 2024-05-07 14:07 | Outpatient (BNV) | payer OTHER, SELFPAY | PROVIDERS: PCP Internal Medicine; Visit Provider Internal Medicine Cardiovascular Disease | DX: R94.31 Abnormal electrocardiogram [ECG] [EKG] (principal) | CPT/HCPCS: 93010 ==

== ENCOUNTER 2024-08-07 11:46 | Outpatient (AMB) | payer OTHER, SELFPAY ==
--- NOTE | 2024-08-07 11:49 | MHC.PC.OV ---
Vital Signs 08/07/24 11:51 Height 6 ft 2 in Weight 288 lb 2 oz BMI 37.0 BP 130/64 Blood Pressure Location Lt brachial Position Sitting Pulse 95 Pulse Source Pulse Oximeter Pulse Oximetry (%) 95 Oxygen Delivery Method Room Air Intake Visit Reasons: 3 mth f/u Intake Note: Patient is here to follow up on HTN, HLD, CAD. Animation Director Required: No Replenishment Specialist: Not Required per policy Accompanied by: Self / Same As Patient Allergies hazelnut Allergy (Intermediate, Verified 08/07/24 11:54) Itching influenza virus vaccine, specific [FLU VACCINE] Allergy (Unknown, Verified 08/07/24 11:54) NAUSEA & VOMITING pneumococcal vaccine [PNEUMOCOCCAL VACCINE] Allergy (Unknown, Verified 08/07/24 11:54) NAUSEA & VOMITING Medication List - Last Reconciled 08/07/24 by Isac Littlejohn MD aspirin 81 mg PO DAILY blood pressure monitor (Blood Pressure Kit) As directed clopidogrel 75 mg PO DAILY cyanocobalamin (vitamin B-12) 1,000 mcg PO DAILY lisinopril 5 mg PO DAILY loperamide 2 mg PO QID PRN metoprolol tartrate 25 mg PO DAILY nitroglycerin 0.4 mg sublingual polyethylene glycol 3350 (Miralax) 17 grams PO DAILY 1 day [pulse oximeter As directed] rosuvastatin 40 mg PO DAILY sertraline mg PO [thermometer As directed] tramadol 50 mg PO Q8H PRN Tobacco use date assessed: 08/07/24 Fall risk assessment: No Falls in past year Last assessed Fall Risk: 08/07/24 Dental Screening Dental Screen Date: 08/07/24 Did you have a dental visit in the last 12 months?: No Did you have a dental problem in the last 6 months where you did not have access to dental care?: No Was dental information given to patient?: No HPI 3 mth f/u HPI Details hypertension on rx; doing well and compliant [facility] Medical History Obesity Hyperlipidemia Surgical History History of two vessel coronary artery bypass graft History of coronary artery stent placement Family History Father COPD (chronic obstructive pulmonary disease) Lung cancer Mother Myocardial infarction Family/Other Diabetes Thyroid disease Social History Housing: Apartment Alcohol intake: never Patient Tobacco Use Status: Former Tobacco user Tobacco use type: Cigarette e-Cigarette/Vaping Use: Never Used Second Hand Smoke Exposure: No service: No Current occupational status: disabled Cognitive needs: No Hearing needs: No Vision needs: No Questionnaire PHQ-9 Over the last 2 weeks, how often have you been bothered by any of the following problems? 1. Little interest or pleasure in doing things: not at all 2. Feeling down, depressed, or hopeless: not at all 3. Trouble falling or staying asleep, or sleeping too much: not at all 4. Feeling tired or having little energy: not at all 5. Poor appetite or overeating: not at all 6. Feeling bad about yourself - or that you are a failure or have let yourself or your family down: not at all 7. Trouble concentrating on things, such as reading the newspaper or watching television: not at all 8. Moving or speaking so slowly that other people could have noticed. Or the opposite - being so fidgety or restless that you have been moving around a lot more than usual: not at all 9. Thoughts that you would be better off or of hurting yourself in some way: not at all Total score: 0 Depression Screening Interpretation: Negative Depression Screening Done: Yes Source: Developed by Drs. Asif Ward, Honey Rdoriguez, Baljeet Reynolds and colleagues, with an educational ankita from [employer]. Thrive Questionnaire Date Thrive assessed: 08/07/24 I am a: Patient What is your living situation today?: I have a steady place to live Within the past 12 months, did the food you bought not last and you didn't have the money to get more?: Never true Within the past 12 months, did you worry whether your food would run out before you got money to buy more?: Never true Do you have trouble paying for medicines?: No Do you have trouble getting transportation to medical appointments?: No Do you have trouble paying your heating and electricity bill?: No Do you have trouble taking care of your child, family member or friend?: No Do you have trouble with day-to-day activities such as bathing, preparing meals, shopping, managing finances, etc.?: No Are you currently unemployed and looking for a job?: No Are you interested in more education?: No Please select the resources that you would like help with: None Currently or been in a relationship where the following occur: No concerns reported THRIVE Score: 0 AUDIT C Alcohol Use Questionnaire (AUDIT-C) 1. How often do you have a drink containing alcohol?: Never Total Score: 0 NOMAN-7 AMB Questionnaire NOMAN-7 Date NOMAN - 7 assessed: 08/07/24 Feeling nervous, anxious, or on edge: 0 = Not at all Not being able to stop or control worryin = Not at all Worrying too much about different things: 0 = Not at all Trouble relaxin = Not at all Being so restless that it is hard to sit still: 0 = Not at all Becoming easily annoyed or irritable: 0 = Not at all Feeling afraid as if something awful might happen: 0 = Not at all Total NOMAN-7 score (0-4 normal; 5-9 mild; 10-14 moderate; 15-21 severe): 0 Source: Developed by Drs. Asif Ward, Honey Rodriguez, Baljeet Reynolds and colleagues, with an educational ankita from [employer]. Review of Systems Const Denies chills, Denies headache(s) and Denies weight loss ENT Denies headache(s) Card Denies chest pain, Denies syncope, Denies irregular heart rhythm and Denies dyspnea Resp Denies chest congestion, Denies cough and Denies dyspnea GI Denies abdominal pain, Denies change in stool character, Denies nausea and Denies vomiting Musc Denies deformity and Denies joint swelling Neuro Denies syncope and Denies headache(s) Physical exam (Primary Care) Vital Signs: Last Vital Signs Pulse 95 08/07/24 11:51 BP 130/64 08/07/24 11:51 Pulse Ox 95 08/07/24 11:51 Oxygen Delivery Method Room Air 08/07/24 11:51 BMI result Body Mass Index 37.0 Tobacco/Smoking Status: Tobacco use Status Tobacco use date assessed 08/07/24 08/07/24 11:56 Patient Tobacco Use Status Former Tobacco user 08/07/24 11:56 Tobacco use type Cigarette 08/07/24 11:56 e-Cigarette/Vaping Use Never Used 08/07/24 11:56 PHQ-9: PHQ-9 Score PHQ-9: Total score 0 08/07/24 11:56 Depression Screening Interpretation: Negative Thrive Assessment: Date of Thrive Assessment Date Thrive assessed 08/07/24 08/07/24 11:56 Currently or been in a relationship where the following occur: No concerns reported Const General: cooperative, comfortable, no acute distress and alert Neck Neck: Yes no lymphadenopathy Thyroid: Thyroid normal Resp Effort & Inspection: normal respiratory effort Auscultation: clear to auscultation bilaterally Percussion: percussion normal Cardio Jugular venous distension: no JVD Palpation: normal PMI Rate: regular rate Rhythm: regular rhythm Heart sounds: S1 normal heart sound present and S2 normal heart sound present GI Inspection: Yes normal to inspection Palpation (GI): No hepatosplenomegaly present Skin General skin exam: no rashes or lesions noted Extrem General: Yes no clubbing, cyanosis or edema Coding Level of Care Code Est Pt Level 3 (04810) Diagnoses Hypertension I10 Assessment & Plan Assessment & Plan (1) Hypertension: Code(s): I10 - Essential (primary) hypertension Category: Medical Plan: stable; same rx
[2024-08-07 11:51] VITALS: BP 130/64; PULSE 95; O2SAT 95; BMI 37.0
== END 2024-08-07 12:16 | disposition home or self-care (01) ==
PROVIDERS: PCP Internal Medicine; Visit Provider Internal Medicine
DX: I10 Essential (primary) hypertension (principal)

== ENCOUNTER → 2024-08-07 11:46 | Outpatient (BNVA) | payer OTHER, SELFPAY | PROVIDERS: PCP Internal Medicine; Visit Provider Internal Medicine | DX: I10 Essential (primary) hypertension (principal) | CPT/HCPCS: 96127; 99212 ==

== ENCOUNTER 2024-10-08 23:49 | Emergency (ER) | payer OTHER, SELFPAY ==
--- NOTE | ~2024-10-08 | XR_ITS ---
CLINICAL HISTORY: chest pain 1 view chest x-ray Comparison: CR/SR - XR CHEST 1V - 05/07/24 14:44 EDT Findings: Cardiomegaly. Cephalization of pulmonary vasculature and central pulmonary vascular engorgement. Increased interstitial markings in both lungs, with central/perihilar predominance. Scattered hazy alveolar opacities in both lungs. No visible pleural effusion or findings of pneumothorax. No gross evidence of acute fracture. IMPRESSION: 1. Cardiomegaly with findings of moderate interstitial and alveolar edema. This document has been electronically signed by: Piter Olson MD on 10/09/2024 01:22:49
--- NOTE | 2024-10-08 23:52 | ECG_ITS ---
Test Reason : CP Blood Pressure : */* mmHG Vent. Rate : 67 BPM Atrial Rate : 67 BPM P-R Int : 188 ms QRS Dur : 106 ms QT Int : 416 ms P-R-T Axes : 33 -36 43 degrees QTcB Int : 439 ms Normal sinus rhythm Left axis deviation Minimal voltage criteria for LVH, may be normal variant ( R in aVL ) Abnormal ECG When compared with ECG of 07-May-2024 14:07, No significant change was found Referred By: Generic ED Physician Electronically Signed By: GLADIS PAN
[2024-10-08 23:55] VITALS: BP 123/54; BP 155/88; PULSE 60; PULSE 85; RESP 20; TEMP 36.6; O2SAT 96; O2SAT 97; BMI 35.9
[2024-10-09 00:19] LABS: Basophils Percent Auto 0.6 % (0-2); Eosinophils Absolute Auto 0.1 X10*3/uL (0.0-0.4); Eosinophils Percent Auto 1.8 % (0-4); Hematocrit 34.4 % (42.0-52.0); Hemoglobin 12.1 g/dl (14.0-18.0); Imm Gran Abs Auto 0.01 X10*3/uL (0.00-0.03); Imm Gran Pct Auto 0.2 % (0.0-0.4); Lymphocytes Absolute Auto 1.6 X10*3/uL (1.2-4.9); Lymphocytes Percent Auto 23.7 % (20-40); MANUAL DIFF FLAG NO; Mean Corpuscular HGB Conc 35.2 g/dl (31.0-36.0); Mean Corpuscular Hemoglobin 30.2 pg (27.0-33.0); Mean Corpuscular Volume 85.8 fL (80.0-98.0); Monocytes Absolute Auto 0.6 X10*3/uL (0.1-1.2); Monocytes Percent Auto 9.5 % (2-11); Neutrophils Absolute Auto 4.3 x10*3/uL (2.0-8.3); Neutrophils Percent Auto 64.2 % (45-73); Platelet Count 244 X10*3/uL (160-400); Red Blood Count 4.01 X10*6/uL (4.60-5.80); Red Cell Distribution Width 12.3 % (11.0-16.0); White Blood Count 6.7 X10*3/uL (4.8-10.8)
[2024-10-09 00:35] LABS: Alanine Aminotransferase 19 U/L (0-40); Albumin Level 3.7 g/dL (3.5-5.0); Alkaline Phosphatase 92 U/L (39-117); Anion Gap 10 (12-20); Aspartate Amino Transferase 22 U/L (5-37); Bilirubin Total 0.3 mg/dL (0.0-1.0); Blood Urea Nitrogen 15 mg/dL (9-16); Calcium 8.8 mg/dL (8.4-10.2); Carbon Dioxide 23 mmol/L (22-29); Chloride 111 mmol/L (96-108); Creatinine Clr Calc Pharmacy 125.1; Estimated Glomerular Filt Rate > 60; Glucose Random 105 mg/dL (60-115); Sodium 140 mmol/L (135-145); Total Protein 6.8 g/dL (6.5-8.0)
[2024-10-09 00:39] LABS: Troponin-I High Sensitivity < 2.7 ng/L (<3.5-35.0)
[2024-10-09 03:04] LABS: Troponin-I High Sensitivity 2.8 ng/L (<3.5-35.0)
[2024-10-09 05:40] VITALS: BP 95/51; PULSE 75; RESP 20; TEMP 36.8; O2SAT 99
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
[2024-10-09 07:06] VITALS: BP 148/68; PULSE 84; RESP 12; TEMP 36.1; O2SAT 97
[2024-10-09 07:32] LABS: B Type Natriuretic Peptide 109 pg/mL (<100)
== END 2024-10-09 07:15 | disposition left against medical advice (07) ==
PROVIDERS: Physician Assistant; Emergency Provider Emergency Medicine
DX: J02.9 Acute pharyngitis, unspecified (principal); R07.9 Chest pain, unspecified
CPT/HCPCS: 71045; 83735; 83880; 84484; 93005

== ENCOUNTER → 2024-10-08 23:52 | Outpatient (BNV) | payer OTHER, SELFPAY | PROVIDERS: Emergency Provider Emergency Medicine; Visit Provider Internal Medicine | DX: R07.9 Chest pain, unspecified (principal); I44.4 Left anterior fascicular block; R94.31 Abnormal electrocardiogram [ECG] [EKG] | CPT/HCPCS: 93010 ==

== ENCOUNTER 2024-10-09 13:30 | Emergency (ER) | payer OTHER, SELFPAY ==
[2024-10-09 14:10] VITALS: BP 142/63; PULSE 96; RESP 16; TEMP 36.4; O2SAT 97; BMI 16.5
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
--- NOTE | 2024-10-09 14:15 | ECG_ITS ---
Test Reason : CHEST PAIN Blood Pressure : */* mmHG Vent. Rate : 88 BPM Atrial Rate : 88 BPM P-R Int : 176 ms QRS Dur : 106 ms QT Int : 366 ms P-R-T Axes : 34 -37 74 degrees QTcB Int : 442 ms Normal sinus rhythm Left axis deviation Left ventricular hypertrophy with repolarization abnormality ( R in aVL ) Abnormal ECG When compared with ECG of 09-Oct-2024 00:01, No significant change was found Referred By: Elsy Moreno Electronically Signed By: GLADIS PAN
[2024-10-09 15:01] LABS: IDNOW Serial# 08D9AD1C; Strep A Nucleic Acid Negative (Negative)
[2024-10-09 15:37] LABS: Influenza A PCR NEGATIVE (Negative); Influenza B PCR NEGATIVE (Negative); Resp Syncy Virus RNA Qual PCR NEGATIVE (Negative); SARS COV2 PCR INHOUSE NEGATIVE (Negative)
[2024-10-09 16:51] LABS: MANUAL DIFF FLAG NO
[2024-10-09 16:53] LABS: Basophils Percent Auto 0.3 % (0-2); Eosinophils Absolute Auto 0.1 X10*3/uL (0.0-0.4); Hemoglobin 13.1 g/dl (14.0-18.0); Imm Gran Abs Auto 0.03 X10*3/uL (0.00-0.03); Imm Gran Pct Auto 0.3 % (0.0-0.4); Lymphocytes Absolute Auto 2.3 X10*3/uL (1.2-4.9); Lymphocytes Percent Auto 20.1 % (20-40); Mean Corpuscular HGB Conc 34.5 g/dl (31.0-36.0); Mean Corpuscular Hemoglobin 29.7 pg (27.0-33.0); Mean Corpuscular Volume 86.2 fL (80.0-98.0); Monocytes Absolute Auto 0.9 X10*3/uL (0.1-1.2); Monocytes Percent Auto 7.6 % (2-11); Neutrophils Absolute Auto 8.1 x10*3/uL (2.0-8.3); Neutrophils Percent Auto 70.7 % (45-73); Platelet Count 276 X10*3/uL (160-400); Red Blood Count 4.41 X10*6/uL (4.60-5.80); Red Cell Distribution Width 12.3 % (11.0-16.0); White Blood Count 11.4 X10*3/uL (4.8-10.8)
[2024-10-09 17:13] LABS: Troponin-I High Sensitivity 3.1 ng/L (<3.5-35.0)
[2024-10-09 17:14] LABS: Alanine Aminotransferase 20 U/L (0-40); Albumin Level 4.2 g/dL (3.5-5.0); Alkaline Phosphatase 95 U/L (39-117); Anion Gap 13 (12-20); Aspartate Amino Transferase 25 U/L (5-37); Bilirubin Direct 0.1 mg/dL (0.0-0.5); Bilirubin Total 0.3 mg/dL (0.0-1.0); Blood Urea Nitrogen 12 mg/dL (9-16); Calcium 9.4 mg/dL (8.4-10.2); Carbon Dioxide 25 mmol/L (22-29); Chloride 104 mmol/L (96-108); Creatinine Clr Calc Pharmacy 70.3; Estimated Glomerular Filt Rate > 60; Glucose Random 102 mg/dL (60-115); Lipase 18 U/L (8-78); Potassium 3.8 mmol/L (3.3-5.1); Sodium 138 mmol/L (135-145); Total Protein 7.9 g/dL (6.5-8.0)
[2024-10-09 18:19] VITALS: BP 114/67; PULSE 78; RESP 18; TEMP 36.6; O2SAT 97
[2024-10-09 20:00] VITALS: BP 123/66; PULSE 67; RESP 20; TEMP 36.7; O2SAT 97
[2024-10-09 20:28] VITALS: BP 123/66; PULSE 67; RESP 20; TEMP 36.7; O2SAT 97
== END 2024-10-09 20:29 | disposition home or self-care (01) ==
PROVIDERS: Physician Assistant Medical; Emergency Provider Internal Medicine; PCP Internal Medicine
DX: R07.89 Other chest pain (principal); J02.9 Acute pharyngitis, unspecified; E78.5 Hyperlipidemia, unspecified; Z87.891 Personal history of nicotine dependence; Z03.818 Encounter for observation for suspected exposure to other biological agents ruled out
CPT/HCPCS: 0241U; 36415; 71045; 80048; 80053; 80076; 83690; 83735; 83880; 84484; 85025; 87651; 93005; 99283; 99285

== ENCOUNTER → 2024-10-09 14:15 | Outpatient (BNV) | payer OTHER, SELFPAY | PROVIDERS: PCP Internal Medicine; Visit Provider Internal Medicine | DX: R07.9 Chest pain, unspecified (principal); R94.31 Abnormal electrocardiogram [ECG] [EKG]; I44.4 Left anterior fascicular block | CPT/HCPCS: 93010 ==

== ENCOUNTER → 2024-10-09 | Outpatient (BNV) | payer OTHER, SELFPAY | PROVIDERS: Visit Provider Radiology Diagnostic Radiology | DX: R07.9 Chest pain, unspecified (principal); I51.7 Cardiomegaly | CPT/HCPCS: 71045 ==

== ENCOUNTER 2024-11-05 13:31 | Outpatient (AMB) | payer OTHER, SELFPAY ==
[2024-11-05 13:51] VITALS: BP 108/62; PULSE 88; RESP 20; TEMP 36.5; O2SAT 96; BMI 35.2
--- NOTE | 2024-11-05 13:51 | MHC.PC.OV ---
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 Required: No Accompanied by: Self / Same As Patient Allergies hazelnut Allergy (Intermediate, Verified 11/05/24 14:00) Itching influenza virus vaccine, specific [FLU VACCINE] Allergy (Unknown, Verified 11/05/24 14:00) NAUSEA & VOMITING pneumococcal vaccine [PNEUMOCOCCAL VACCINE] Allergy (Unknown, Verified 11/05/24 14:00) NAUSEA & VOMITING morphine Adverse Reaction (Verified 11/05/24 14:00) Nausea and Vomiting Medication List - Last Reconciled 11/05/24 by YANIRA Post aspirin 81 mg PO DAILY blood pressure monitor (Blood Pressure Kit) As directed cilostazol 100 mg PO BID clopidogrel 75 mg PO DAILY cyanocobalamin (vitamin B-12) 1,000 mcg PO DAILY lisinopril 5 mg PO DAILY loperamide 2 mg PO QID PRN metoprolol tartrate 25 mg PO DAILY nitroglycerin 0.4 mg sublingual [pulse oximeter As directed] rosuvastatin 40 mg PO DAILY sertraline mg PO [thermometer As directed] tramadol 50 mg PO Q8H PRN Tobacco use date assessed: 11/05/24 Fall risk assessment: 1 Fall in past year Last assessed Fall Risk: 11/05/24 Dental Screening Dental Screen Date: 11/05/24 Did you have a dental visit in the last 12 months?: Yes Did you have a dental problem in the last 6 months where you did not have access to dental care?: No Was dental information given to patient?: Patient has dentist HPI JAMMIE Dr Littlejohn/3 month f/u HPI Details Patient is a 69-year-old male with a past medical history of obesity, HLD, CAD s/p CABG, unstable angina, GERD Patient is presenting for transition of care from Dr. Littlejohn who retired Reports that he has no concerns today. Reports that he does not follow up with Cardiology frequently. He primarily follow up with Dr. Littlejohn in six-month. Patient reports that he is currently still smoking and has no intention stopping at this time. Patient denies shortness of breath, chest pain, heart palpitation or dizziness. Patient reports compliance with his medications. Per chart review, the patient was recently in the emergency room with complaints of throat pain radiating into his chest. Patient reports that his pain has resolved while being attended to in the emergency room. Ultimately the patient left AMA. Patient complained of going left knee pain and reports using a cane to ambulate. Recent labs reviewed with the patient. [facility] Medical History Obesity Hyperlipidemia Surgical History History of two vessel coronary artery bypass graft History of coronary artery stent placement Family History Father COPD (chronic obstructive pulmonary disease) Lung cancer Mother Myocardial infarction Family/Other Diabetes Thyroid disease Social History Housing: Apartment Alcohol intake: never Patient Tobacco Use Status: Current everyday Tobacco user Tobacco use type: Cigarette e-Cigarette/Vaping Use: Never Used Second Hand Smoke Exposure: No service: No Current occupational status: disabled Cognitive needs: No Hearing needs: No Vision needs: No Questionnaire Thrive Questionnaire Date Thrive assessed: 11/05/24 I am a: Patient What is your living situation today?: I have a steady place to live Within the past 12 months, did the food you bought not last and you didn't have the money to get more?: Never true Within the past 12 months, did you worry whether your food would run out before you got money to buy more?: Never true Do you have trouble paying for medicines?: No Do you have trouble getting transportation to medical appointments?: No Do you have trouble paying your heating and electricity bill?: No Do you have trouble taking care of your child, family member or friend?: No Do you have trouble with day-to-day activities such as bathing, preparing meals, shopping, managing finances, etc.?: No Are you currently unemployed and looking for a job?: No Are you interested in more education?: No Please select the resources that you would like help with: None Currently or been in a relationship where the following occur: No concerns reported THRIVE Score: 0 AUDIT C Alcohol Use Questionnaire (AUDIT-C) 1. How often do you have a drink containing alcohol?: Never Total Score: 0 Score Reviewed/Action Taken: Yes NOMAN-7 AMB Questionnaire NOMAN-7 Date NOMAN - 7 assessed: 08/07/24 Source: Developed by Drs. Asif Ward, Honey Rodriguez, Baljeet Reynolds and colleagues, with an educational ankita from [employer]. Review of Systems Const Denies headache(s) Eyes Denies loss of vision ENT Denies vertigo, Denies dizziness, Denies headache(s) and Denies sore throat Card Denies chest pain, Denies leg edema and Denies lightheadedness Resp Denies cough, Denies hemoptysis and Denies wheezing GI Denies abdominal pain, Denies melena, Denies constipation, Denies diarrhea and Denies vomiting Denies dysuria, Denies urinary frequency and Denies urinary urgency Musc Reports arthralgias (Left knee-uses a cane), Denies joint swelling, Denies numbness and Denies tingling Neuro Denies Abnormal speech present, Denies behavioral changes, Denies vertigo, Denies dizziness, Denies headache(s), Denies loss of vision, Denies memory loss, Denies numbness and Denies tingling Psych Denies anxiety, Denies behavioral changes, Denies depression, Denies memory loss and Denies panic attacks Cyrus/Lymph Denies easy bleeding and Denies easy bruising Aller/Immun Denies wheezing Physical exam (Primary Care) Vital Signs: Last Vital Signs Temp 97.7 F 11/05/24 13:51 Pulse 88 11/05/24 13:51 Resp 20 11/05/24 13:51 BP 108/62 11/05/24 13:51 Pulse Ox 96 11/05/24 13:51 Oxygen Delivery Method Room Air 11/05/24 13:51 BMI result Body Mass Index 35.2 Tobacco/Smoking Status: Tobacco use Status Tobacco use date assessed 11/05/24 11/05/24 14:02 Patient Tobacco Use Status Current everyday Tobacco 11/05/24 14:02 Tobacco use type Cigarette 11/05/24 13:52 e-Cigarette/Vaping Use Never Used 11/05/24 13:52 Thrive Assessment: Date of Thrive Assessment Date Thrive assessed 11/05/24 11/05/24 14:02 Currently or been in a relationship where the following occur: No concerns reported Const General: healthy appearing, no acute distress, alert and awake Nutritional Appearance: well nourished Orientation/consciousness: oriented to person, oriented to place and oriented to time HENMT Ears: external ears normal General nose exam: Normal external nose present Eyes Conjunctivae: conjunctivae normal Sclerae: sclerae normal Pupils: Equal, round and reactive pupils present Neck Neck: Yes no lymphadenopathy and Yes no JVD Thyroid: Thyroid normal Carotids: no bruits Resp Effort & Inspection: normal respiratory effort and not tachypneic Auscultation: no crackles, no rales, no rhonchi and no wheezes Cardio Rate: regular rate Rhythm: regular rhythm Heart sounds: no murmurs and normal S1 and S2 GI Palpation (GI): Soft to palpation and nontender Auscultation: normal bowel sounds General: Yes no CVA tenderness Back/Spine/Pelvis Back: no CVA tenderness Thoracic/Lumbar Spine: No thoracic spinal tenderness and No lumbar spinal tenderness Skin General skin exam: no rashes or lesions noted and dry skin Neuro General: oriented to person, oriented to place and oriented to time Cranial nerves: Yes Equal, round and reactive pupils present Speech: No Abnormal speech present Gait exam (Neuro): Assistive device used (cane) Motor exam (neuro): no tremor noted Extrem General: Yes no pedal edema and Yes no calf tenderness Right upper extremity: full ROM Left upper extremity: full ROM Right lower extremity: full ROM; no edema Left lower extremity: full ROM and knee Details: no tenderness and no swelling; no edema Psych Mental Status: mental status grossly normal Speech and movement: Normal speech and movement present Affect: normal affect Attitude: cooperative Thought process: Normal thought process present Results Reviewed Results Reviewed: Laboratory Tests 10/09/24 10/09/24 07:05 16:48 WBC 11.4 H RBC 4.41 L Hgb 13.1 L Hct 38.0 L MCV 86.2 MCH 29.7 Plt Count 276 Sodium 138 Potassium 3.8 Chloride 104 Carbon Dioxide 25 BUN 12 Creatinine 0.83 Estim Creat Clear Calc 70.3 Random Glucose 102 Magnesium 2.0 AST 25 ALT 20 Alkaline Phosphatase 95 Troponin I High Sens 3.1 B-Natriuretic Peptide 109 H Total Protein 7.9 Albumin 4.2 Lipase 18 Coding Level of Care Code Est Pt Level 4 (94548) Diagnoses Hypertension, unspecified type I10 Hypertension type: unspecified S/P CABG (coronary artery bypass graft) Z95.1 Gastroesophageal reflux disease, unspecified whether esophagitis present K21.9 Esophagitis presence: esophagitis presence not specified Anemia, unspecified type D64.9 Anemia type: unspecified type Chronic pain of left knee M25.562; G89.29 Chronicity: chronic Time Spent (min) 41 Assessment & Plan Assessment & Plan (1) Hypertension: Code(s): I10 - Essential (primary) hypertension Category: Medical Qualifiers: Hypertension type: unspecified Qualified Code(s): I10 - Essential (primary) hypertension Plan: Blood pressure within goal Reinforced low-sodium diet Continue lisinopril 5 mg, metoprolol tartrate 25 mg daily (2) S/P CABG (coronary artery bypass graft): Code(s): Z95.1 - Presence of aortocoronary bypass graft Category: Surgical Plan: Continue aspirin 81 mg, continue clopidogrel 75 mg daily, rosuvastatin 40 mg daily. Continues blood pressure management. Encouraged the patient to follow up with Cardiology (3) GERD (gastroesophageal reflux disease): Code(s): K21.9 - Gastro-esophageal reflux disease without esophagitis Category: Medical Qualifiers: Esophagitis presence: esophagitis presence not specified Qualified Code(s): K21.9 - Gastro-esophageal reflux disease without esophagitis Plan: Do not eat meals or drink carbonated beverages within 3 hr of bedtime Decrease the amount of fried, fatty, and spicy foods to decrease gastric acid production Raise the head of the bed using 4 to 6-inch blocks, especially if nocturnal symptoms are present Lose weight if indicated; avoid tight-fitting clothing, especially around the waist Avoid foods that relax the Lower esophageal sphincter (chocolate, peppermint, high-fat foods etc.,) (4) Anemia: Comment: 20 min reviewing chart eval pt and documenting; do labs and ref colonoscopy Code(s): D64.9 - Anemia, unspecified Category: Medical Qualifiers: Anemia type: unspecified type Qualified Code(s): D64.9 - Anemia, unspecified Plan: Chronic stable anemia. We will continue to monitor CBC (5) Left knee pain: Code(s): M25.562 - Pain in left knee Category: Medical Qualifiers: Chronicity: chronic Qualified Code(s): M25.562 - Pain in left knee; G89.29 - Other chronic pain Plan: Continue modified activity. The patient uses a cane to assist with ambulation and PRN Tramadol 50 mg Q8H Orders: Orders Lipid Panel 11/05/24 R76.11 - Nonspecific reaction to tuberculin skin test without active tuberculosis, Z95.1 - Presence of aortocoronary bypass graft, K21.9 - Gastro-esophageal reflux disease without esophagitis, I25.10 - Atherosclerotic heart disease of [place] coronary artery without angina pectoris, E66.9 - Obesity, unspecified, D64.9 - Anemia, unspecified, E78.5 - Hyperlipidemia, unspecified TSH reflex Free T4 11/05/24 R76.11 - Nonspecific reaction to tuberculin skin test without active tuberculosis, Z95.1 - Presence of aortocoronary bypass graft, K21.9 - Gastro-esophageal reflux disease without esophagitis, I25.10 - Atherosclerotic heart disease of [place] coronary artery without angina pectoris, E66.9 - Obesity, unspecified, D64.9 - Anemia, unspecified, E78.5 - Hyperlipidemia, unspecified Comprehensive [place]. Panel Fast 11/05/24 R76.11 - Nonspecific reaction to tuberculin skin test without active tuberculosis, Z95.1 - Presence of aortocoronary bypass graft, K21.9 - Gastro-esophageal reflux disease without esophagitis, I25.10 - Atherosclerotic heart disease of [place] coronary artery without angina pectoris, E66.9 - Obesity, unspecified, D64.9 - Anemia, unspecified, E78.5 - Hyperlipidemia, unspecified Vitamin D 25-OH Total 11/05/24 R76.11 - Nonspecific reaction to tuberculin skin test without active tuberculosis, Z95.1 - Presence of aortocoronary bypass graft, K21.9 - Gastro-esophageal reflux disease without esophagitis, I25.10 - Atherosclerotic heart disease of [place] coronary artery without angina pectoris, E66.9 - Obesity, unspecified, D64.9 - Anemia, unspecified, E78.5 - Hyperlipidemia, unspecified UA CC w/rflx Micro + Cult 11/05/24 R76.11 - Nonspecific reaction to tuberculin skin test without active tuberculosis, Z95.1 - Presence of aortocoronary bypass graft, K21.9 - Gastro-esophageal reflux disease without esophagitis, I25.10 - Atherosclerotic heart disease of [place] coronary artery without angina pectoris, E66.9 - Obesity, unspecified, D64.9 - Anemia, unspecified, E78.5 - Hyperlipidemia, unspecified Glucose Fasting 11/05/24 R76.11 - Nonspecific reaction to tuberculin skin test without active tuberculosis, Z95.1 - Presence of aortocoronary bypass graft, K21.9 - Gastro-esophageal reflux disease without esophagitis, I25.10 - Atherosclerotic heart disease of [place] coronary artery without angina pectoris, E66.9 - Obesity, unspecified, D64.9 - Anemia, unspecified, E78.5 - Hyperlipidemia, unspecified
== END 2024-11-05 14:19 | disposition home or self-care (01) ==
LOC: HO.HMCH 13:31
DX: I10 Essential (primary) hypertension (principal); Z95.1 Presence of aortocoronary bypass graft; K21.9 Gastro-esophageal reflux disease without esophagitis; D64.9 Anemia, unspecified; M25.562 Pain in left knee; G89.29 Other chronic pain

== ENCOUNTER → 2024-11-05 13:31 | Outpatient (BNVA) | payer OTHER, SELFPAY | DX: I10 Essential (primary) hypertension (principal); K21.9 Gastro-esophageal reflux disease without esophagitis; D64.9 Anemia, unspecified; M25.562 Pain in left knee; G89.29 Other chronic pain; Z95.1 Presence of aortocoronary bypass graft | CPT/HCPCS: 99212 ==

== ENCOUNTER 2025-03-11 11:24 | Outpatient (AMB) | payer OTHER, SELFPAY ==
[2025-03-11 11:28] VITALS: BP 120/68; PULSE 91; RESP 18; TEMP 37.2; O2SAT 96; BMI 34.0
--- NOTE | 2025-03-11 11:28 | A.OFFPC_ITS ---
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 Accompanied by: Self / Same As Patient Allergies hazelnut Allergy (Intermediate, Verified 03/11/25 11:48) Itching influenza virus vaccine, specific (FLU VACCINE) Allergy (Unknown, Verified 03/11/25 11:48) NAUSEA & VOMITING pneumococcal vaccine (PNEUMOCOCCAL VACCINE) Allergy (Unknown, Verified 03/11/25 11:48) NAUSEA & VOMITING morphine Adverse Reaction (Verified 03/11/25 11:48) Nausea and Vomiting Medication List - Last Reconciled 03/11/25 by YANIRA Post aspirin 81 mg PO DAILY blood pressure monitor (Blood Pressure Kit) As directed cilostazol 100 mg PO BID clopidogrel 75 mg PO DAILY cyanocobalamin (vitamin B-12) 1,000 mcg PO DAILY lisinopril 5 mg PO DAILY loperamide 2 mg PO QID PRN metoprolol tartrate 25 mg PO DAILY nitroglycerin 0.4 mg sublingual [pulse oximeter As directed] rosuvastatin 40 mg PO DAILY sertraline mg PO [thermometer As directed] tramadol 50 mg PO Q8H PRN Tobacco use date assessed: 03/11/25 Fall risk assessment: 1 Fall in past year Last assessed Fall Risk: 03/11/25 Dental Screening Dental Screen Date: 03/11/25 Did you have a dental visit in the last 12 months?: No Did you have a dental problem in the last 6 months where you did not have access to dental care?: No Was dental information given to patient?: No HPI htn/gerd/anemia/hld HPI Details Patient is a 69-year-old male with a past medical history of obesity, HLD, CAD s/p CABG, unstable angina, GERD Patient is presenting for follow up appointment. Reports that he forgot to do his labs that was preordered for this appointment. He will get this done as soon as possible. HTN-blood pressure 120/68. Reinforced low-salt diet. Patient reports medication compliance. Continue metoprolol 25 mg daily and lisinopril 5 mg daily GERD: Patient denies heartburn. Reinforced dietary restrictions. HLD: Reinforced low-cholesterol diet. Continue rosuvastatin 40 mg daily Bilateral knee pain: Reports the left knees worse than right. Patient is ambulating with a cane and has been using conservative measures to cope. PAD: Bilateral SFA stents, right side known to be occluded with recent vascular testings. Continue cilostazol 100 mg b.i.d. [facility] Medical History (Updated 03/11/25 @ 21:36 by YANIRA Post) Hypertension GERD (gastroesophageal reflux disease) CAD (coronary artery disease) PAD (peripheral artery disease) Obesity Hyperlipidemia Surgical History (Updated 03/11/25 @ 21:33 by YANIRA Post) S/P CABG (coronary artery bypass graft) History of two vessel coronary artery bypass graft History of coronary artery stent placement Family History Father COPD (chronic obstructive pulmonary disease) Lung cancer Mother Myocardial infarction Family/Other Diabetes Thyroid disease Social History Housing: Apartment Alcohol intake: never Patient Tobacco Use Status: Current everyday Tobacco user Tobacco use type: Cigarette e-Cigarette/Vaping Use: Never Used Second Hand Smoke Exposure: No service: No Current occupational status: disabled Cognitive needs: No Hearing needs: No Vision needs: No Questionnaire PHQ-9 Over the last 2 weeks, how often have you been bothered by any of the following problems? 1. Little interest or pleasure in doing things: more than half the days 2. Feeling down, depressed, or hopeless: more than half the days 3. Trouble falling or staying asleep, or sleeping too much: nearly every day 4. Feeling tired or having little energy: several days 5. Poor appetite or overeating: not at all 6. Feeling bad about yourself - or that you are a failure or have let yourself or your family down: not at all 7. Trouble concentrating on things, such as reading the newspaper or watching television: not at all 8. Moving or speaking so slowly that other people could have noticed. Or the opposite - being so fidgety or restless that you have been moving around a lot more than usual: several days 9. Thoughts that you would be better off or of hurting yourself in some way: not at all Total score: 9 Source: Developed by Drs. Asif Ward, Honey Rodriguez, Baljeet Reynolds and colleagues, with an educational ankita from [employer]. Thrive Questionnaire Date Thrive assessed: 03/11/25 I am a: Patient What is your living situation today?: I have a steady place to live Within the past 12 months, did the food you bought not last and you didn't have the money to get more?: Never true Within the past 12 months, did you worry whether your food would run out before you got money to buy more?: Never true Do you have trouble paying for medicines?: No Do you have trouble getting transportation to medical appointments?: I choose not to answer this question Do you have trouble paying your heating and electricity bill?: No Do you have trouble taking care of your child, family member or friend?: I choose not to answer this question Do you have trouble with day-to-day activities such as bathing, preparing meals, shopping, managing finances, etc.?: No Are you currently unemployed and looking for a job?: No Are you interested in more education?: Yes Please select the resources that you would like help with: Education Currently or been in a relationship where the following occur: No concerns reported THRIVE Score: 0 AUDIT C Alcohol Use Questionnaire (AUDIT-C) 1. How often do you have a drink containing alcohol?: Never 3. How often do you have six or more drinks on one occasion?: Never Total Score: 0 NOMAN-7 AMB Questionnaire NOMAN-7 Date NOMAN - 7 assessed: 03/11/25 Feeling nervous, anxious, or on edge: 3 = Nearly every day Not being able to stop or control worryin = Nearly every day Worrying too much about different things: 2 = More than half the days Trouble relaxin = Several days Being so restless that it is hard to sit still: 3 = Nearly every day Becoming easily annoyed or irritable: 0 = Not at all Feeling afraid as if something awful might happen: 0 = Not at all Total NOMAN-7 score (0-4 normal; 5-9 mild; 10-14 moderate; 15-21 severe): 12 Source: Developed by Drs. Asif Ward, Honey Rodriguez, Baljeet Reynolds and colleagues, with an educational ankita from [employer]. Review of Systems Const Denies headache(s) Eyes Denies loss of vision ENT Denies vertigo, Denies dizziness, Denies headache(s) and Denies sore throat Card Denies chest pain, Reports claudication (Improved with treatment), Denies leg edema and Denies lightheadedness Resp Denies cough, Denies hemoptysis and Denies wheezing GI Denies abdominal pain, Denies melena, Denies constipation, Denies diarrhea and Denies vomiting Denies dysuria, Denies urinary frequency and Denies urinary urgency Musc Reports arthralgias (Bilateral knees, left worse), Denies joint swelling, Denies numbness and Denies tingling Neuro Denies Abnormal speech present, Denies behavioral changes, Denies vertigo, Denies dizziness, Denies headache(s), Denies loss of vision, Denies memory loss, Denies numbness and Denies tingling Psych Denies anxiety, Denies behavioral changes, Denies depression, Denies memory loss and Denies panic attacks Cyrus/Lymph Denies easy bleeding and Denies easy bruising Aller/Immun Denies wheezing Physical exam (Primary Care) Vital Signs: Last Vital Signs Temp 99 F 03/11/25 11:28 Pulse 91 03/11/25 11:28 Resp 18 03/11/25 11:28 BP 120/68 03/11/25 11:28 Pulse Ox 96 03/11/25 11:28 Oxygen Delivery Method Room Air 03/11/25 11:28 BMI result Body Mass Index 34.0 Tobacco/Smoking Status: Tobacco use Status Tobacco use date assessed 03/11/25 03/11/25 11:41 Patient Tobacco Use Status Current everyday Tobacco 03/11/25 11:41 Tobacco use type Cigarette 03/11/25 11:41 e-Cigarette/Vaping Use Never Used 03/11/25 11:41 PHQ-9: PHQ-9 Score PHQ-9: Total score 9 03/11/25 11:55 Thrive Assessment: Date of Thrive Assessment Date Thrive assessed 03/11/25 03/11/25 11:41 Currently or been in a relationship where the following occur: No concerns reported Const General: healthy appearing, no acute distress, alert and awake Nutritional Appearance: well nourished Orientation/consciousness: oriented to person, oriented to place and oriented to time HENMT Ears: hearing grossly normal bilaterally General nose exam: Normal external nose present Eyes Conjunctivae: conjunctivae normal Sclerae: sclerae normal Pupils: Equal, round and reactive pupils present Neck Neck: Yes no lymphadenopathy and Yes no JVD Thyroid: Thyroid normal Carotids: no bruits Resp Effort & Inspection: normal respiratory effort and not tachypneic Auscultation: no crackles, no rales, no rhonchi and no wheezes Cardio Rate: regular rate Rhythm: regular rhythm Heart sounds: S1 normal heart sound present, S2 normal heart sound present, no murmurs and normal S1 and S2 GI Palpation (GI): Soft to palpation, nontender, no hepatomegaly and no splenomegaly Auscultation: normal bowel sounds General: Yes no CVA tenderness Back/Spine/Pelvis Back: no CVA tenderness Skin General skin exam: no rashes or lesions noted and dry skin Neuro General: oriented to person, oriented to place and oriented to time Cranial nerves: Yes Equal, round and reactive pupils present Speech: No Abnormal speech present Gait exam (Neuro): Normal gait present, Antalgic gait present and Assisted gait required (cane) Motor exam (neuro): no tremor noted Extrem Right upper extremity: full ROM Left upper extremity: full ROM Right lower extremity: full ROM and knee Details: no tenderness and no swelling; no edema Left lower extremity: full ROM and knee Details: no tenderness and no swelling; no edema Psych Mental Status: mental status grossly normal Speech and movement: Normal speech and movement present Affect: normal affect Attitude: cooperative Thought process: Normal thought process present Coding Level of Care Code Est Pt Level 4 (34849) Diagnoses Hypertension, unspecified type I10 Hypertension type: unspecified S/P CABG (coronary artery bypass graft) Z95.1 Gastroesophageal reflux disease, unspecified whether esophagitis present K21.9 Esophagitis presence: esophagitis presence not specified Anemia, unspecified type D64.9 Anemia type: unspecified type Chronic pain of left knee M25.562; G89.29 Chronicity: chronic Depression, unspecified depression type F32.A Depression Type: unspecified Class 1 obesity with serious comorbidity and body mass index (BMI) of 34.0 to 34.9 in adult, unspecified obesity type E66.811; Z68.34 Obesity type: unspecified obesity type Obesity classification: adult class 1 (BMI 30 - 34.9) Serious obesity comorbidity presence: with serious comorbidity Body mass index: BMI 34.0-34.9 PAD (peripheral artery disease) I73.9 Time Spent (min) 39 Assessment & Plan Assessment & Plan (1) Hypertension: Code(s): I10 - Essential (primary) hypertension Category: Medical Qualifiers: Hypertension type: unspecified Qualified Code(s): I10 - Essential (primary) hypertension Plan: Blood pressure within goal Reinforced low-sodium diet Continue lisinopril 5 mg, metoprolol tartrate 25 mg daily (2) S/P CABG (coronary artery bypass graft): Code(s): Z95.1 - Presence of aortocoronary bypass graft Category: Surgical Plan: Continue aspirin 81 mg, continue clopidogrel 75 mg daily, rosuvastatin 40 mg daily. Continues blood pressure management. Encouraged the patient to follow up with Cardiology (3) GERD (gastroesophageal reflux disease): Code(s): K21.9 - Gastro-esophageal reflux disease without esophagitis Category: Medical Qualifiers: Esophagitis presence: esophagitis presence not specified Qualified Code(s): K21.9 - Gastro-esophageal reflux disease without esophagitis Plan: Do not eat meals or drink carbonated beverages within 3 hr of bedtime Decrease the amount of fried, fatty, and spicy foods to decrease gastric acid production Raise the head of the bed using 4 to 6-inch blocks, especially if nocturnal symptoms are present Lose weight if indicated; avoid tight-fitting clothing, especially around the waist Avoid foods that relax the Lower esophageal sphincter (chocolate, peppermint, high-fat foods etc.,) (4) Anemia: Comment: 20 min reviewing chart eval pt and documenting; do labs and ref colonoscopy Code(s): D64.9 - Anemia, unspecified Category: Medical Qualifiers: Anemia type: unspecified type Qualified Code(s): D64.9 - Anemia, uns pecified Plan: Chronic stable anemia. We will continue to monitor CBC (5) Left knee pain: Code(s): M25.562 - Pain in left knee Category: Medical Qualifiers: Chronicity: chronic Qualified Code(s): M25.562 - Pain in left knee; G89.29 - Other chronic pain Plan: Continue modified activity. The patient uses a cane to assist with ambulation (6) Depression: Code(s): F32.A - Depression, unspecified Category: Medical Qualifiers: Depression Type: unspecified Qualified Code(s): F32.A - Depression, unspecified Plan: ENCOURAGED CBT Continue sertraline 100 mg daily (7) Obesity: Code(s): E66.9 - Obesity, unspecified Category: Medical Qualifiers: Obesity type: unspecified obesity type Obesity classification: adult class 1 (BMI 30 - 34.9) Serious obesity comorbidity presence: with serious comorbidity Body mass index: BMI 34.0-34.9 Qualified Code(s): E66.811 - Obesity, class 1; Z68.34 - Body mass index [BMI] 34.0-34.9, adult Plan: Discussed lifestyle modifications including dietary changes and physical activity (8) PAD (peripheral artery disease): Code(s): I73.9 - Peripheral vascular disease, unspecified Category: Medical Plan: Bilateral SFA stents, right side known to be occluded with recent vascular testings Medications: Discontinued tramadol Discontinued Reason: Doctor's Order 50 mg PO Q8H PRN 20 tabs 0RF pain
== END 2025-03-11 12:08 | disposition home or self-care (01) ==
LOC: HO.HMCH 11:25
DX: I10 Essential (primary) hypertension (principal); Z95.1 Presence of aortocoronary bypass graft; K21.9 Gastro-esophageal reflux disease without esophagitis; D64.9 Anemia, unspecified; M25.562 Pain in left knee; G89.29 Other chronic pain; F32.A Depression, unspecified; E66.811 Obesity, class 1; Z68.34 Body mass index [BMI] 34.0-34.9, adult; I73.9 Peripheral vascular disease, unspecified

== ENCOUNTER → 2025-03-11 11:24 | Outpatient (BNVA) | payer OTHER, SELFPAY | DX: I10 Essential (primary) hypertension (principal); E78.5 Hyperlipidemia, unspecified; K21.9 Gastro-esophageal reflux disease without esophagitis; M25.561 Pain in right knee; M25.562 Pain in left knee; I73.9 Peripheral vascular disease, unspecified; D64.9 Anemia, unspecified; G89.29 Other chronic pain; F32.A Depression, unspecified; E66.811 Obesity, class 1; Z68.34 Body mass index [BMI] 34.0-34.9, adult; Z95.1 Presence of aortocoronary bypass graft; Z79.899 Other long term (current) drug therapy | CPT/HCPCS: 96127; 99212 ==

== ENCOUNTER 2025-06-15 13:52 | Outpatient (AMB) | payer OTHER, SELFPAY ==
--- NOTE | 2025-06-15 14:05 | MHC.PC.OV ---
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 Accompanied by: Self / Same As Patient Allergies hazelnut Allergy (Intermediate, Verified 06/15/25 17:45) Itching influenza virus vaccine, specific (FLU VACCINE) Allergy (Unknown, Verified 06/15/25 17:45) NAUSEA & VOMITING pneumococcal vaccine (PNEUMOCOCCAL VACCINE) Allergy (Unknown, Verified 06/15/25 17:45) NAUSEA & VOMITING morphine Adverse Reaction (Verified 06/15/25 17:45) Nausea and Vomiting Medication List - Last Reconciled 06/15/25 by YANIRA Post aspirin 81 mg PO DAILY blood pressure monitor (Blood Pressure Kit) As directed [cane As directed] cilostazol 100 mg PO BID clopidogrel 75 mg PO DAILY cyanocobalamin (vitamin B-12) 1,000 mcg PO DAILY lisinopril 5 mg PO DAILY loperamide 2 mg PO QID PRN metoprolol tartrate 25 mg PO DAILY nitroglycerin 0.4 mg sublingual [pulse oximeter As directed] rosuvastatin 40 mg PO DAILY sertraline mg PO [thermometer As directed] Tobacco use date assessed: 06/15/25 Fall risk assessment: 1 Fall in past year Last assessed Fall Risk: 06/15/25 Dental Screening Dental Screen Date: 06/15/25 Did you have a dental visit in the last 12 months?: No Did you have a dental problem in the last 6 months where you did not have access to dental care?: No Was dental information given to patient?: No HPI htn/gerd/card/anemia/hld HPI Details The patient is a 69-year-old male presenting for HTN, GERD, CAD, HLD follow up The patient reports that he is feeling okay and has no issues right now Reports that he is waiting for approval from [facility] for a new cane because the arrival part of his cane fell off The patient has not completed preordered labs-reports that this was not done because he lost the paperwork that was printed for him at his last visit Patient denies chest pain, SOB, heart palpitation or dizziness Denies abdominal pain or change in bowel habits Denies urinary symptoms PFSH Medical History Hypertension GERD (gastroesophageal reflux disease) CAD (coronary artery disease) PAD (peripheral artery disease) Obesity Hyperlipidemia Surgical History S/P CABG (coronary artery bypass graft) History of two vessel coronary artery bypass graft History of coronary artery stent placement Family History Father COPD (chronic obstructive pulmonary disease) Lung cancer Mother Myocardial infarction Family/Other Diabetes Thyroid disease Social History Housing: Apartment Alcohol intake: never Patient Tobacco Use Status: Current everyday Tobacco user Tobacco use type: Cigarette e-Cigarette/Vaping Use: Never Used Second Hand Smoke Exposure: No service: No Current occupational status: disabled Cognitive needs: No Hearing needs: No Vision needs: No Questionnaire PHQ-9 Over the last 2 weeks, how often have you been bothered by any of the following problems? 1. Little interest or pleasure in doing things: more than half the days 2. Feeling down, depressed, or hopeless: more than half the days 3. Trouble falling or staying asleep, or sleeping too much: nearly every day 4. Feeling tired or having little energy: several days 5. Poor appetite or overeating: not at all 6. Feeling bad about yourself - or that you are a failure or have let yourself or your family down: not at all 7. Trouble concentrating on things, such as reading the newspaper or watching television: not at all 8. Moving or speaking so slowly that other people could have noticed. Or the opposite - being so fidgety or restless that you have been moving around a lot more than usual: several days 9. Thoughts that you would be better off or of hurting yourself in some way: not at all Total score: 9 Source: Developed by Drs. Asif Ward, Honey Rodriguez, Baljeet Reynolds and colleagues, with an educational ankita from [employer]. Thrive Questionnaire Date Thrive assessed: 03/11/25 I am a: Patient What is your living situation today?: I have a steady place to live Within the past 12 months, did the food you bought not last and you didn't have the money to get more?: Never true Within the past 12 months, did you worry whether your food would run out before you got money to buy more?: Never true Do you have trouble paying for medicines?: No Do you have trouble getting transportation to medical appointments?: I choose not to answer this question Do you have trouble paying your heating and electricity bill?: No Do you have trouble taking care of your child, family member or friend?: I choose not to answer this question Do you have trouble with day-to-day activities such as bathing, preparing meals, shopping, managing finances, etc.?: No Are you currently unemployed and looking for a job?: No Are you interested in more education?: Yes Please select the resources that you would like help with: Education Currently or been in a relationship where the following occur: No concerns reported THRIVE Score: 0 AUDIT C Alcohol Use Questionnaire (AUDIT-C) 1. How often do you have a drink containing alcohol?: Never 3. How often do you have six or more drinks on one occasion?: Never Total Score: 0 NOMAN-7 AMB Questionnaire NOMAN-7 Date NOMAN - 7 assessed: 03/11/25 Feeling nervous, anxious, or on edge: 3 = Nearly every day Not being able to stop or control worryin = Nearly every day Worrying too much about different things: 2 = More than half the days Trouble relaxin = Several days Being so restless that it is hard to sit still: 3 = Nearly every day Becoming easily annoyed or irritable: 0 = Not at all Feeling afraid as if something awful might happen: 0 = Not at all Total NOMAN-7 score (0-4 normal; 5-9 mild; 10-14 moderate; 15-21 severe): 12 Source: Developed by Drs. Asif Ward, Honey Rodriguez, Baljeet Reynolds and colleagues, with an educational ankita from [employer]. Review of Systems Const Denies headache(s) Eyes Denies loss of vision ENT Denies vertigo, Denies dizziness, Denies headache(s) and Denies sore throat Card Denies chest pain, Reports claudication (Improved with treatment), Denies leg edema and Denies lightheadedness Resp Denies cough, Denies hemoptysis and Denies wheezing GI Denies abdominal pain, Denies melena, Denies constipation, Denies diarrhea and Denies vomiting Denies dysuria, Denies urinary frequency and Denies urinary urgency Musc Reports arthralgias (Bilateral knees, left worse), Denies joint swelling, Denies numbness and Denies tingling Neuro Denies Abnormal speech present, Denies behavioral changes, Denies vertigo, Denies dizziness, Denies headache(s), Denies loss of vision, Denies memory loss, Denies numbness and Denies tingling Psych Denies anxiety, Denies behavioral changes, Denies depression, Denies memory loss and Denies panic attacks Cyrus/Lymph Denies easy bleeding and Denies easy bruising Aller/Immun Denies wheezing Physical exam (Primary Care) Vital Signs: Last Vital Signs Pulse 89 06/15/25 14:09 Resp 18 06/15/25 14:09 BP 116/52 L 06/15/25 14:09 Pulse Ox 97 06/15/25 14:09 Oxygen Delivery Method Room Air 06/15/25 14:09 BMI result Body Mass Index 33.8 Tobacco/Smoking Status: Tobacco use Status Tobacco use date assessed 06/15/25 06/15/25 14:15 Patient Tobacco Use Status Current everyday Tobacco 06/15/25 14:05 Tobacco use type Cigarette 06/15/25 14:05 e-Cigarette/Vaping Use Never Used 06/15/25 14:05 PHQ-9: PHQ-9 Score PHQ-9: Total score 9 06/15/25 14:56 Thrive Assessment: Date of Thrive Assessment Date Thrive assessed 03/11/25 06/15/25 14:05 Currently or been in a relationship where the following occur: No concerns reported Const General: healthy appearing, no acute distress, alert and awake Nutritional Appearance: well nourished Orientation/consciousness: oriented to person, oriented to place and oriented to time [facility] Ears: hearing grossly normal bilaterally General nose exam: Normal external nose present Eyes Conjunctivae: conjunctivae normal Sclerae: sclerae normal Pupils: Equal, round and reactive pupils present Neck Neck: Yes no lymphadenopathy and Yes no JVD Thyroid: Thyroid normal Carotids: no bruits Resp Effort & Inspection: normal respiratory effort and not tachypneic Auscultation: no crackles, no rales, no rhonchi and no wheezes Cardio Rate: regular rate Rhythm: regular rhythm Heart sounds: S1 normal heart sound present, S2 normal heart sound present, no murmurs and normal S1 and S2 GI Palpation (GI): Soft to palpation, nontender, no hepatomegaly and no splenomegaly Auscultation: normal bowel sounds General: Yes no CVA tenderness Back/Spine/Pelvis Back: no CVA tenderness Skin General skin exam: no rashes or lesions noted and dry skin Neuro General: oriented to person, oriented to place and oriented to time Cranial nerves: Yes Equal, round and reactive pupils present Speech: No Abnormal speech present Gait exam (Neuro): Normal gait present, Antalgic gait present and Assisted gait required (cane) Motor exam (neuro): no tremor noted Extrem Right upper extremity: full ROM Left upper extremity: full ROM Right lower extremity: full ROM and knee Details: no tenderness and no swelling; no edema Left lower extremity: full ROM and knee Details: no tenderness and no swelling; no edema Psych Mental Status: mental status grossly normal Speech and movement: Normal speech and movement present Affect: normal affect Attitude: cooperative Thought process: Normal thought process present Coding Level of Care Code Est Pt Level 4 (46380) Diagnoses Hypertension, unspecified type I10 Hypertension type: unspecified S/P CABG (coronary artery bypass graft) Z95.1 Gastroesophageal reflux disease, unspecified whether esophagitis present K21.9 Esophagitis presence: esophagitis presence not specified Anemia, unspecified type D64.9 Anemia type: unspecified type Chronic pain of left knee M25.562; G89.29 Chronicity: chronic Depression, unspecified depression type F32.A Depression Type: unspecified Class 1 obesity with serious comorbidity and body mass index (BMI) of 34.0 to 34.9 in adult, unspecified obesity type E66.811; Z68.34 Obesity type: unspecified obesity type Obesity classification: adult class 1 (BMI 30 - 34.9) Serious obesity comorbidity presence: with serious comorbidity Body mass index: BMI 34.0-34.9 PAD (peripheral artery disease) I73.9 Time Spent (min) 36 Assessment & Plan Assessment & Plan (1) Hypertension: Code(s): I10 - Essential (primary) hypertension Category: Medical Qualifiers: Hypertension type: unspecified Qualified Code(s): I10 - Essential (primary) hypertension Plan: Blood pressure within goal Reinforced low-sodium diet Continue lisinopril 5 mg, metoprolol tartrate 25 mg daily (2) S/P CABG (coronary artery bypass graft): Code(s): Z95.1 - Presence of aortocoronary bypass graft Category: Surgical Plan: Continue aspirin 81 mg, continue clopidogrel 75 mg daily, rosuvastatin 40 mg daily. Continues blood pressure management. Encouraged the patient to follow up with Cardiology (3) GERD (gastroesophageal reflux disease): Code(s): K21.9 - Gastro-esophageal reflux disease without esophagitis Category: Medical Qualifiers: Esophagitis presence: esophagitis presence not specified Qualified Code(s): K21.9 - Gastro-esophageal reflux disease without esophagitis Plan: Do not eat meals or drink carbonated beverages within 3 hr of bedtime Decrease the amount of fried, fatty, and spicy foods to decrease gastric acid production Raise the head of the bed using 4 to 6-inch blocks, especially if nocturnal symptoms are present Lose weight if indicated; avoid tight-fitting clothing, especially around the waist Avoid foods that relax the Lower esophageal sphincter (chocolate, peppermint, high-fat foods etc.,) (4) Anemia: Comment: 20 min reviewing chart eval pt and documenting; do labs and ref colonoscopy Code(s): D64.9 - Anemia, unspecified Category: Medical Qualifiers: Anemia type: unspecified type Qualified Code(s): D64.9 - Anemia, unspecified Plan: Chronic stable anemia. We will continue to monitor CBC (5) Left knee pain: Code(s): M25.562 - Pain in left knee Category: Medical Qualifiers: Chronicity: chronic Qualified Code(s): M25.562 - Pain in left knee; G89.29 - Other chronic pain Plan: Continue modified activity. The patient uses a cane to assist with ambulation. He is waiting approval for a new cane, current cane missing rubber tip (6) Depression: Code(s): F32.A - Depression, unspecified Category: Medical Qualifiers: Depression Type: unspecified Qualified Code(s): F32.A - Depression, unspecified Plan: ENCOURAGED CBT Continue sertraline 100 mg daily (7) Obesity: Code(s): E66.9 - Obesity, unspecified Category: Medical Qualifiers: Obesity type: unspecified obesity type Obesity classification: adult class 1 (BMI 30 - 34.9) Serious obesity comorbidity presence: with serious comorbidity Body mass index: BMI 34.0-34.9 Qualified Code(s): E66.811 - Obesity, class 1; Z68.34 - Body mass index [BMI] 34.0-34.9, adult Plan: Discussed lifestyle modifications including dietary changes and physical activity (8) PAD (peripheral artery disease): Code(s): I73.9 - Peripheral vascular disease, unspecified Category: Medical Plan: Bilateral SFA stents, right side known to be occluded with recent vascular testings
[2025-06-15 14:09] VITALS: BP 116/52; PULSE 89; RESP 18; O2SAT 97; BMI 33.8
== END 2025-06-15 15:06 | disposition home or self-care (01) ==
LOC: HO.HMCH 13:53
DX: I10 Essential (primary) hypertension (principal); Z95.1 Presence of aortocoronary bypass graft; K21.9 Gastro-esophageal reflux disease without esophagitis; D64.9 Anemia, unspecified; M25.562 Pain in left knee; G89.29 Other chronic pain; F32.A Depression, unspecified; E66.811 Obesity, class 1; Z68.34 Body mass index [BMI] 34.0-34.9, adult; I73.9 Peripheral vascular disease, unspecified

== ENCOUNTER → 2025-06-15 13:52 | Outpatient (BNVA) | payer OTHER, SELFPAY | DX: I10 Essential (primary) hypertension (principal); K21.9 Gastro-esophageal reflux disease without esophagitis; I25.10 Atherosclerotic heart disease of native coronary artery without angina pectoris; E78.5 Hyperlipidemia, unspecified; D64.9 Anemia, unspecified; M25.562 Pain in left knee; G89.29 Other chronic pain; F32.A Depression, unspecified; E66.811 Obesity, class 1; I73.9 Peripheral vascular disease, unspecified; Z95.1 Presence of aortocoronary bypass graft; Z68.34 Body mass index [BMI] 34.0-34.9, adult; Z99.89 Dependence on other enabling machines and devices | CPT/HCPCS: 96127; 99212 ==